=== PATIENT | female | born 1990 | race Caucasian/White ===

== ENCOUNTER → 2019-12-06 09:17 | Outpatient (BNVA) | payer MEDICAID, SELFPAY | PROVIDERS: PCP Internal Medicine; Referring Provider Internal Medicine; Visit Provider Dietitian, Registered | DX: Z76.89 Persons encountering health services in other specified circumstances (principal) ==

== ENCOUNTER → 2020-05-03 16:01 | Outpatient (BNVA) | payer MEDICAID, SELFPAY | PROVIDERS: PCP Internal Medicine; Visit Provider Surgery | DX: E66.3 Overweight (principal); Z68.26 Body mass index [BMI] 26.0-26.9, adult | CPT/HCPCS: 99212 ==

== ENCOUNTER 2020-10-11 11:03 | Emergency (ER) | payer MEDICAID, SELFPAY ==
--- NOTE | ~2020-10-11 | XR_ITS ---
EXAMINATION: XR CHEST CLINICAL INFORMATION: Cough with chest congestion COMPARISON: February 16, 2019 TECHNIQUE: 2 views of the chest were obtained. FINDINGS: No significant abnormality is noted involving the heart, lungs, mediastinum, bony thorax or soft tissues. XR/XR chest 2V IMPRESSION: No acute disease.
[2020-10-11 11:21] VITALS: BP 122/58; PULSE 92; RESP 18; TEMP 37.4; O2SAT 99; BMI 24.0
--- NOTE | 2020-10-11 11:32 | ED_ITS ---
HPI - URI/Sore Throat General Chief Complaint: Upper Respiratory Symptoms Stated Complaint: flu like Time Seen by Provider: 10/11/20 11:31 Source: patient Mode of arrival: ambulatory Limitations: no limitations History of Present Illness HPI Narrative: 30 y/o healthy female presenting with cough, chest congestion, body aches and nausea for the last 7-8 days. She reports getting a cold from her mom and had these symptoms which improved after 3-4 days, however they started to come back worse yesterday. 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 She has not gotten her COVID vaccine yet. She reports decreased PO intake due to nausea, bodyaches and overall not feeling well. She is taking Mucinex and OTC cold medications. She denies SOB, RANGEL or chest pains. MD elicited complaint: cough and nasal congestion Onset (ago): week(s) (1) Consistency: constant Severity: moderate Description of mucous: clear Able to tolerate fluids by mouth: Yes Exacerbating factors: nothing Relieving factors: OTC cold medicine Context: sick contacts Associated symptoms: myalgias, headache, nasal congestion, cough and nausea Treatments prior to arrival: cold medicine Related Data Home Medications Medication Instructions Recorded Confirmed cholecalciferol (vitamin D3) 50 3,000 unit PO DAILY cap 05/03/20 05/03/20 mcg (2,000 unit) capsule multivitamin 1 tab PO DAILY 05/03/20 05/03/20 sertraline 25 mg tablet (Zoloft) 25 mg PO DAILY 05/03/20 05/03/20 Previous Rx's Medication Instructions Recorded ondansetron 4 mg disintegrating 4 mg PO Q8H PRN #7 tab 10/11/20 tablet Allergies Allergy/AdvReac Type Severity Reaction Status Date / Time No Known Allergies Allergy Verified 05/03/20 16:35 [No Known Allergies*] Review of Systems Review of Systems: Constitutional: No Fever, No Chills ENT/Mouth: No sore throat, No Rhinorrhea, No Swallowing Difficulty Cardiovascular: No Chest Pain, No SOB, No Orthopnea, No Edema Respiratory: + Cough, No Sputum, No Wheezing, No dyspnea Gastrointestinal: No Nausea, No Vomiting, No Diarrhea, No abdominal Pain Musculoskeletal: No joint pain, + Myalgias Skin: No Skin Lesions, No rash Neuro: No Weakness, No Numbness, No Dizziness, + Headache Psych: + Anxiety/Panic Heme/Lymph: No Bruising, No Lymphadenopathy COUNT INCLUDES THE [facility] Past Medical History Medical History (Updated 10/11/20 @ 13:19 by ANETTE Webb) Anxiety Asthma Surgical History H/O ovarian cystectomy History of laparoscopic appendectomy History of repair of hiatal hernia History of sleeve gastrectomy S/P lumpectomy, right breast Family History Family History (Updated 05/03/20 @ 15:52 by Chantel Lobo MD) Father No problems noted. Mother HTN (hypertension) Brother No problems noted. Brother No problems noted. Sister No problems noted. Daughter No problems noted. Social History Social History (Updated 05/03/20 @ 15:52 by Chantel Lobo MD) Alcohol intake: never Advance Directives: No Advance Directives Information Provided: No Patient : No Physical Exam Vital Signs: Vital Signs: Last Vital Signs Temp 99.4 F 10/11/20 11:21 Pulse 92 10/11/20 11:21 Resp 18 10/11/20 11:21 BP 122/58 L 10/11/20 11:21 Pulse Ox 99 10/11/20 11:21 Body Mass Index 24.0 Appearance: Alert. Oriented X3. No acute distress. Eyes: Pupils equal, round and reactive to light. ENT: Pharynx normal. Moderate nasal congestion, clear discharge. no sinus tenderness Neck: Normal inspection. Neck supple. CVS: Normal heart rate and rhythm. Pulses normal. Respiratory: No respiratory distress. Breath sounds normal. Abdomen: Soft and nontender. +BS x4 Skin: Skin warm and dry. Normal skin color. Normal skin turgor. No rashes. Extremities: No lower extremity edema. Neuro: Oriented X 3. No motor deficit. No sensory deficit. Course Course Course Narrative: 30 y/o healthy female presenting with COVID symptoms for last 1 week. 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 She is anxious about the possibility of COVID. She has normal VS and a benign physical exam. Will check CXR and COVID swab. Reevaluation(s) Reevaluation #1: CXR clear. COVID POSITIVE. Patient counseled on management and worrisome symptoms to prompt urgent re-evaluation. Work note provided. Stable for d/c home. MDM - URI/Sore Throat Lab Data Labs: Lab Results 10/11/20 Range/Units 11:30 Coronavirus (PCR) POSITIVE A (Negative) Influenza Type A (PCR) NEGATIVE (Negative) Influenza Type B (PCR) NEGATIVE (Negative) RSV RNA Qual (PCR) NEGATIVE (Negative) Discharge Plan Discharge Clinical Impression: COVID-19 Patient Disposition: Home, Self-Care Instructions: COVID-19 (Coronavirus Disease 2019) (ED) Additional Instructions: You were found to be COVID-19 POSITIVE today. Your chest x-ray and oxygen levels were normal. Rest. Drink plenty of fluids. Do not go out in public for the next 10 days. Take over the counter cold/flu medications as needed for your symptoms. Take Tylenol and/or Motrin as needed for fevers and body aches. Follow up with your doctor as needed. If you shortness of breath worsens, if you develop difficulty breathing or any other concerning symptom come back to the ER for further evaluation. Prescriptions: New ondansetron 4 mg tablet,disintegrating 4 mg PO Q8H PRN (Reason: nausea and vomiting) Qty: 7 RF: 0 No Action cholecalciferol (vitamin D3) 50 mcg (2,000 unit) capsule 3,000 unit PO DAILY RF: 0 multivitamin Tablet 1 tab PO DAILY RF: 0 sertraline [Zoloft] 25 mg tablet 25 mg PO DAILY RF: 0 Stand Alone Forms: Work/School Release
[2020-10-11 12:53] LABS: Influenza A PCR NEGATIVE (Negative); Influenza B PCR NEGATIVE (Negative); Resp Syncy Virus RNA Qual PCR NEGATIVE (Negative); SARS COV2 PCR INHOUSE POSITIVE (Negative)
== END 2020-10-11 13:41 | disposition home or self-care (01) ==
PROVIDERS: Emergency Provider Emergency Medicine; PCP Internal Medicine
DX: U07.1 COVID-19 (principal)
CPT/HCPCS: 0241U; 36415; 71046; 99283

== ENCOUNTER 2020-11-13 15:07 | Outpatient (RCR) | payer MEDICAID, SELFPAY | END 2021-07-03 09:40 | disposition home or self-care (01) | LOC: HO.PTCHIC 15:07 | PROVIDERS: PCP Internal Medicine; Visit Provider Internal Medicine | DX: M62.838 Other muscle spasm (principal); M54.6 Pain in thoracic spine | CPT/HCPCS: 97110; 97161 ==

== ENCOUNTER 2020-12-05 16:59 | Emergency (ER) | payer MEDICAID, SELFPAY | END 2020-12-05 18:30 | disposition left against medical advice (07) | PROVIDERS: Emergency Provider Emergency Medicine; PCP Internal Medicine | DX: R00.2 Palpitations (principal) ==

== ENCOUNTER 2023-01-16 09:01 | Outpatient (REF) | payer MEDICAID, SELFPAY ==
[2023-01-16 10:07] LABS: MANUAL DIFF FLAG NO
[2023-01-16 10:21] LABS: Basophils Absolute Auto 0.1 X10*3/uL (0.0-0.2); Basophils Percent Auto 1.1 % (0-2); Eosinophils Absolute Auto 0.4 X10*3/uL (0.0-0.4); Eosinophils Percent Auto 6.6 % (0-4); Hematocrit 39.1 % (37.0-47.0); Hemoglobin 13.1 g/dl (12.0-16.0); Imm Gran Abs Auto 0.02 X10*3/uL (0.00-0.03); Imm Gran Pct Auto 0.3 % (0.0-0.4); Lymphocytes Absolute Auto 2.4 X10*3/uL (1.2-4.9); Lymphocytes Percent Auto 37.3 % (20-40); Mean Corpuscular HGB Conc 33.5 g/dl (31.0-35.0); Mean Corpuscular Hemoglobin 29.7 pg (27.0-33.0); Mean Corpuscular Volume 88.7 fL (80.0-98.0); Mean Platelet Volume 10.9 fL (9.4-12.3); Monocytes Absolute Auto 0.5 X10*3/uL (0.1-1.2); Neutrophils Percent Auto 46.7 % (45-73); Platelet Count 269 X10*3/uL (160-400); Red Blood Count 4.41 X10*6/uL (4.20-5.50); Red Cell Distribution Width 13.4 % (11.0-16.0); White Blood Count 6.5 X10*3/uL (4.8-10.8)
[2023-01-16 10:38] LABS: Estimated Average Glucose 97 mg/dL
[2023-01-16 11:01] LABS: Anion Gap 11 (12-20); Blood Urea Nitrogen 9 mg/dL (9-16); C Reactive Protein 0.14 mg/dL (< or = 0.50); Calcium 8.8 mg/dL (8.4-10.2); Carbon Dioxide 24 mmol/L (22-29); Chloride 112 mmol/L (96-108); Cholesterol 138 mg/dL (<200); Estimated Glomerular Filt Rate > 60; Glucose Random 82 mg/dL (60-115); HDL Cholesterol 45 mg/dL (>40); Iron 50 mcg/dL (30-160); LDL Cholesterol Calculated 83 mg/dL (<100); Percent Iron Saturation 15 % (15-50); Potassium 3.7 mmol/L (3.3-5.1); Sodium 143 mmol/L (135-145); Total Iron Binding Capacity 325 mcg/dL (228-428); Triglycerides 52 mg/dL (<150); Unsaturated Iron Binding 275 ug/dL
[2023-01-16 11:31] LABS: TSH reflex Free T4 1.14 uIU/mL (0.32-4.0); Vitamin D 25-OH Total 30.4 ng/mL (>30)
[2023-01-16 11:36] LABS: Folate 12.9 ng/mL (> or = 4.0); Vitamin B12 464 pg/mL (200-900)
[2023-01-16 12:09] LABS: Ferritin 21 ng/mL (10-122)
[2023-01-16 12:58] LABS: Insulin 4 uU/mL (2-29)
[2023-01-19 11:53] LABS: Calcium (PTHI) 8.9 mg/dL (8.6-10.2); PTHI 32 pg/mL (16-77)
[2023-01-20 01:59] LABS: Zinc 66 mcg/dL (60-130)
[2023-01-20 16:03] LABS: Vitamin B1 13 nmol/L (8-30)
[2023-01-21 03:58] LABS: Vitamin A 51 mcg/dL (38-98)
== END 2023-01-16 09:02 | disposition home or self-care (01) ==
LOC: HO.LAB 09:01
PROVIDERS: PCP Internal Medicine; Visit Provider Physician Assistant Surgical
DX: K91.2 Postsurgical malabsorption, not elsewhere classified (principal); E66.9 Obesity, unspecified; Z90.3 Acquired absence of stomach [part of]
CPT/HCPCS: 36415; 80048; 80061; 82306; 82607; 82728; 82746; 83036; 83525; 83540; 83970; 84425; 84443; 84590; 84630; 85025; 86140; 99212

== ENCOUNTER 2023-01-16 09:01 | Outpatient (AMB) | payer MEDICAID, SELFPAY ==
--- NOTE | 2023-01-16 09:02 | A.OFFVIS_ITS ---
Intake VS Expanded 01/16/23 09:13 BP 118/74 Blood Pressure Location Rt brachial Blood Pressure Position Sitting Pulse 62 Pulse Source Pulse Oximeter Temp 96.4 F L Temperature Source Temporal Artery Scan Pulse Oximetry 100 Oxygen Delivery Method Room Air Height 5 ft 3 in Weight 189 lb 3.2 oz BMI 33.5 Body Fat % 42.3 Body Fat Mass 80.0 Fat Free Mass 109.2 Visceral Fat Rating 8.0 Body Water % 41.4 Body Water Mass 78.2 Muscle Mass/Score 103.6 Intake Visit Reasons: (OV) PO LSG 05/04/19 Allergies No Known Allergies [No Known Allergies*] Allergy (Verified 01/16/23 09:09) HPI HPI Comments History of Present Illness Details 32-year-old female returns to the office today for a 3 year 8 month follow-up visit. She underwent a laparoscopic sleeve gastrectomy with hiatal he rnia repair on 05/04/[address] Pryor. She was last seen in the office on a 05/05/2020. Weight today is 189.2 lb with a BMI of 33.5. Weight at her last visit was 151 lb with a BMI of 26.7. She states that she was away from the office for the last 2 and half years. She did very well postoperatively and eventually met her now . She recently had a baby, approximately 2 months ago. She wishes to return to the program to lose weight again and feel much healthier. Wakes 730 am, bed 11 pm, dinner 6 pm Meal plan: None, has food stamps and request premier protein powder. Exercise plan: Treadmill at home, 30-45 min, speed changes but need to manually change incline, gym membership at [employer]. [facility] Medical History (Updated 01/16/23 @ 09:38 by ANETTE Obrien) Anxiety Asthma Surgical History History of repair of hiatal hernia History of sleeve gastrectomy H/O ovarian cystectomy S/P lumpectomy, right breast History of laparoscopic appendectomy Family History Father No problems noted. Mother HTN (hypertension) Brother No problems noted. Brother No problems noted. Sister No problems noted. Daughter No problems noted. Social History (Updated 01/16/23 @ 09:11 by Kinjal Phan CMA) Alcohol intake: never Patient Tobacco Use Status: Never used Tobacco Physical Exam Vital Signs: Last Vital Signs Temp 96.4 F L 01/16/23 09:13 Pulse 62 01/16/23 09:13 BP 118/74 01/16/23 09:13 Pulse Ox 100 01/16/23 09:13 Oxygen Delivery Method Room Air 01/16/23 09:13 BMI result Body Mass Index 33.5 Assessment & Plan Assessment & Plan (1) Intestinal malabsorption following gastrectomy: Code(s): K91.2 - Postsurgical malabsorption, not elsewhere classified; Z90.3 - Acquired absence of stomach [part of] (2) Obesity (BMI 30-39.9): Code(s): E66.9 - Obesity, unspecified Plan: This is a?32 yo female who has return to the program after being lost to follow-up over the last 2 and half years. She states her goal is to return to 145 lb. She states that she is willing and able to work very hard to achieve this and wants to try to achieve it within the next 3 months. ? Adequate sleep of 7-8 hours is very important, awakening at 730 am, going to bed around 11 pm and having dinner around 6 pm ? Purchase body composition analyzer scale ([employer] recommended) and check weight weekly. The best time to do this is first thing in the morning after going to the bathroom. 1. Nutritional counseling: Be sure to careful read the number of scoops per shake Start with 3 shakes (Premier Protein Powder), First shake (1 scoop in 10 oz unsweetened almond milk) at 830am-1030am, Second shake, (1 scoop in 10 oz unsweetened almond milk) at 1130am-130pm 1 protein bar (Zone Perfect) at 230pm-430pm. Dinner at 6pm (7 forks of protein and 7 forks of salad/vegetables). Meal to include lean meat (beef, fish, pork, turkey, chicken), cooked vegetables or a salad with olive oil and/or fruits (berries, pears, apples, kiwi). Avoid salt, breads, potatoes, rice, pasta, desserts. Another shake with 1/2 scoop in 8 oz unsweetened almond milk at 8pm-10pm. Try to drink 64 oz of water daily and avoid soda and juices. May have 1/2 cup fresh berries (straw, blue, rasp, black) or an apple as a snack if needed ?2. Each shake would be drunk slowly, like coffee in a period of 2 hours. ?3. Cut each bar in 4 pieces and eat each piece in 30 min ?to make each bar last 2 hours. ?4. I emphasized the importance of measuring accurately the food portion and measure it carefully when serving the food on the plate ?5. The meal portions include 7 full-size forks of meat and 7 full-size forks of salad. You always eat the meat portion but you can replace up to half of the forks of salad/vegetables with rice, potatoes or pasta, or a fruit ?if you like. The less you do it the better weight loss will be. ?6. One full-size fork is what can be scooped on the fork without falling aside and not what can be bit with the fork. Use regular forks like those you find in a typical restaurant. ?7.? Please send me weight measurements as soon as possible and then once a week. Always include your diet and exercise plan. Alternatively come weekly at the office for weight checks and send me the measurements. ?8. Exercise counseling: Begin by watching a stretching for beginners video. Start slowly and begin to stretch your muscles. You should do this before and after each exercise session to prevent injury. [facility] your home. Ask the warehouse logistics manager or one of the trainers how to use the machines if you are unfamiliar with them. Start elliptical with a resistance of 2. Increase resistance by 1 every 3 min to your most comfortable resistance with a max resistance of 8. Reduce the resistance by 1 every 3 minutes back down to 2 and repeat cycles for 300 calories. Alternatively, start treadmill with a speed of 3.0 and incline of 0, increasing incline by 1 every 3 minutes to the highest comfortable level (max 6 for now) then decrease in the same fashion. Repeat process to a goal of 300 calories. Goal of 2000 calories burned or more weekly. You may also consider use of the stationary bike. The easiest would be to chose the fat-burn or interval training program on the machine and do this until you reach the 300 calorie goal. Alternatively, you can manually adjust the resistance in a similar fashion as mentioned above, (resistance of 2-8 with a goal speed of 12 mph). Tracking calories is essential. 9. Alternatively start walking outside daily, tracking calories with a goal of 300 calories per day, daily. You can download the jose e [employer] which can track your time, distance and calories while walking outside. You press start in the jose e when you start and then stop when you are finished. 10.? It is important to communicate weekly with your weight and if you are having any problems with the plans. 11. Please get labs within 1 week. 12. Please follow the diet plan exactly, without any change. If you do not like something about the plan or you feel hungry, you need to communicate with me so I can help you revise the plan. You should not change the plan yourself. Text me at [phone] 13. Goal is to lose at least 12 pounds in the first month Patient is morbidly obese and is not considered stable at this time.?I spent a total of 70 minutes reviewing/updating records, examining the patient and co unseling the patient on weight management as detailed above. Orders: Orders Lipid Panel Today E66.9 - Obesity, unspecified, K91.2 - Postsurgical malabsorption, not elsewhere classified, Z90.3 - Acquired absence of stomach [part of] IRON PROFILE Today E66.9 - Obesity, unspecified, K91.2 - Postsurgical malabsorption, not elsewhere classified, Z90.3 - Acquired absence of stomach [part of] Complete Blood Count Auto Diff Today E66.9 - Obesity, unspecified, K91.2 - Postsurgical malabsorption, not elsewhere classified, Z90.3 - Acquired absence of stomach [part of] Vitamin B12 and Folate Today E66.9 - Obesity, unspecified, K91.2 - Postsurgical malabsorption, not elsewhere classified, Z90.3 - Acquired absence of stomach [part of] Vitamin A Today E66.9 - Obesity, unspecified, K91.2 - Postsurgical malabsorption, not elsewhere classified, Z90.3 - Acquired absence of stomach [part of] Hemoglobin A1c Today E66.9 - Obesity, unspecified, K91.2 - Postsurgical malabsorption, not elsewhere classified, Z90.3 - Acquired absence of stomach [part of] Basic Metabolic Panel Today E66.9 - Obesity, unspecified, K91.2 - Postsurgical malabsorption, not elsewhere classified, Z90.3 - Acquired absence of stomach [part of] Insulin Today E66.9 - Obesity, unspecified, K91.2 - Postsurgical malabsorption, not elsewhere classified, Z90.3 - Acquired absence of stomach [part of] Zinc Today E66.9 - Obesity, unspecified, K91.2 - Postsurgical malabsorption, not elsewhere classified, Z90.3 - Acquired absence of stomach [part of] Vitamin B1 Today E66.9 - Obesity, unspecified, K91.2 - Postsurgical malabsorption, not elsewhere classified, Z90.3 - Acquired absence of stomach [part of] C Reactive Protein Today E66.9 - Obesity, unspecified, K91.2 - Postsurgical malabsorption, not elsewhere classified, Z90.3 - Acquired absence of stomach [ part of] Ferritin Today E66.9 - Obesity, unspecified, K91.2 - Postsurgical malabsorption, not elsewhere classified, Z90.3 - Acquired absence of stomach [part of] PTHI Today E66.9 - Obesity, unspecified, K91.2 - Postsurgical malabsorption, not elsewhere classified, Z90.3 - Acquired absence of stomach [part of] TSH reflex Free T4 Today E66.9 - Obesity, unspecified, K91.2 - Postsurgical malabsorption, not elsewhere classified, Z90.3 - Acquired absence of stomach [part of] Vitamin D 25-OH Total Today E66.9 - Obesity, unspecified, K91.2 - Postsurgical malabsorption, not elsewhere classified, Z90.3 - Acquired absence of stomach [part of] Coding Level of Care Code Est Pt Level 5 (18657) Diagnoses Intestinal malabsorption following gastrectomy K91.2; Z90.3 Obesity (BMI 30-39.9) E66.9 Time Spent (min) 70
[2023-01-16 09:13] VITALS: BP 118/74; PULSE 62; TEMP 35.8; O2SAT 100; BMI 33.5
== END 2023-01-16 10:05 | disposition home or self-care (01) ==
PROVIDERS: PCP Internal Medicine; Visit Provider Physician Assistant Surgical
DX: E66.9 Obesity, unspecified (principal); Z68.33 Body mass index [BMI] 33.0-33.9, adult; Z90.3 Acquired absence of stomach [part of]; Z98.84 Bariatric surgery status; K91.2 Postsurgical malabsorption, not elsewhere classified
CPT/HCPCS: 99215

== ENCOUNTER 2023-02-11 09:44 | Outpatient (AMB) | payer MEDICAID, SELFPAY ==
--- NOTE | 2023-02-11 08:40 | MHC.OFFVISWM ---
Intake VS Expanded 02/11/23 08:42 Height 5 ft 3 in Weight 176 lb 4 oz BMI 31.2 Intake Visit Reasons: (TV) PO LSG 05/04/19 Allergies No Known Allergies [No Known Allergies*] Allergy (Verified 01/16/23 09:09) HPI HPI Comments History of Present Illness Details 32-year-old female returns to the office today for a 3 year 9 month follow-up visit. She underwent a laparoscopic sleeve gastrectomy with hiatal hernia repair on 05/04/[address] Pryor. She was last seen in the office on a 01/16/23 after not beinng seen for a couple of years. Her weight was 189.2 lb with a BMI of 33.5 and she was restarted on a meal plan and exercise plan. Weight today is 176.4 lb with a BMI of 31.3. She states that she was away from the office for the last 2 and half years. She did very well postoperatively and eventually met her now . She recently had a baby, approximately 2 months ago. She has had done well after the first week of the meal plan and she is no longer tempted. Wakes 730 am, bed 11 pm, dinner 6 pm Meal plan: 3 shakes (Premier Protein Powder), First shake (1 scoop in 10 oz unsweetened almond milk) at 830am-1030am, Second shake, (1 scoop in 10 oz unsweetened almond milk) at 1130am-130pm 1 protein bar (Zone Perfect) at 230pm-430pm. Dinner at 6pm (7 forks of protein and 7 forks of salad/vegetables). Another shake with 1/2 scoop in 8 oz unsweetened almond milk at 8pm-10pm. Drinking 48-64 oz of water daily May have 1/2 cup fresh berries (straw, blue, rasp, black) or an apple as a snack if needed Exercise plan: Treadmill at home, 2 x per day 30 min each, pace changes but not incline 140 calories per session, [facility] Medical History (Updated 01/16/23 @ 09:38 by ANETTE Obrien) Anxiety Asthma Surgical History History of repair of hiatal hernia History of sleeve gastrectomy H/O ovarian cystectomy S/P lumpectomy, right breast History of laparoscopic appendectomy Family History Father No problems noted. Mother HTN (hypertension) Brother No problems noted. Brother No problems noted. Sister No problems noted. Daughter No problems noted. Social History (Updated 01/16/23 @ 09:11 by Kinjal Phan CMA) Alcohol intake: never Patient Tobacco Use Status: Never used Tobacco Assessment & Plan Assessment & Plan (1) Obesity (BMI 30-39.9): Code(s): E66.9 - Obesity, unspecified Plan: change meal plan slightly: 2 shakes (Premier Protein Powder), First shake (1 scoop in 10 oz unsweetened almond milk) at 830am-1030am, Second shake, (1 scoop in 10 oz unsweetened almond milk) at 1130am-130pm 1 protein bar (Zone Perfect) at 230pm-430pm. Dinner at 6pm (7 forks of protein and 7 forks of salad/vegetables). Drinking 48-64 oz of water daily May have 1/2 cup fresh berries (straw, blue, rasp, black) or an apple as a snack if needed Increase exercise to 300 calories daily 45-60 min daily Telehealth Telehealth Location of provider rendering services: practice address Location of patient: address on file Patient Identification confirmed using: Name, : Yes Telehealth method: voice only Patient verbally consented to treatment: Yes Patient verbally consented to billing insurance company: Yes Patient informed of any privacy concerns related to visit: Yes Minutes spent on Phone/Video with Pt.: 12 Coding Level of Care Code Tele Est Pt Level 3 (59324) Diagnoses Obesity (BMI 30-39.9) E66.9 Time Spent (min) 20
[2023-02-11 08:42] VITALS: BMI 31.2
== END 2023-02-11 09:56 | disposition home or self-care (01) ==
LOC: HO.HBS 09:44
PROVIDERS: PCP Internal Medicine; Visit Provider Physician Assistant Surgical
DX: E66.9 Obesity, unspecified (principal)
CPT/HCPCS: 99213

== ENCOUNTER → 2023-02-11 09:44 | Outpatient (BNVA) | payer MEDICAID, SELFPAY | PROVIDERS: PCP Internal Medicine; Visit Provider Physician Assistant Surgical | DX: E66.9 Obesity, unspecified (principal); K91.2 Postsurgical malabsorption, not elsewhere classified; Z90.3 Acquired absence of stomach [part of] ==

== ENCOUNTER 2023-03-25 08:59 | Outpatient (AMB) | payer MEDICAID, SELFPAY ==
--- NOTE | 2023-03-25 09:02 | A.OFFVIS_ITS ---
Intake VS Expanded 03/25/23 09:04 Height 5 ft 3 in Weight 165 lb 12.8 oz BMI 29.4 Intake Visit Reasons: (TV) PO LSG 05/04/19 Field Interviewer Required: No Allergies No Known Allergies [No Known Allergies*] Allergy (Verified 01/16/23 09:09) Medication List - Last Reconciled 03/25/23 by ANETTE Obrien No Known Home Meds HPI HPI Comments History of Present Illness Details 32-year-old female returns to the office today for a 3 year 10 month follow-up visit. She underwent a laparoscopic sleeve gastrectomy with hiatal hernia repair on 05/04/[address] Pryor. Weight today is 165.8 lb with a BMI of 29.4. She states that since last being seen in January. She started her period bleeding a lot and she sees accounting practice manager and was told that her menorrhagia may change w time. She feels bloated. She states that she does have a history of uterine fibroids that worsened during although has not had an ultrasound in approximately 4 years She starts work again on thursday at a [employer] for [employer]. Wakes 730 am, bed 11 pm, dinner 6 pm Meal plan: 2 shakes (Premier Protein Powder), First shake (1 scoop in 10 oz unsweetened almond milk) at 830am-1030am, Second shake, (1 scoop in 10 oz unsweetened almond milk) at 1130am-130pm 1 protein bar (Zone Perfect) at 230pm-43 0pm. Dinner at 6pm (7 forks of protein and 7 forks of salad/vegetables). Drinking 48-64 oz of water daily May have 1/2 cup fresh berries (straw, blue, rasp, black) or an apple as a snack if needed Exercise plan: Treadmill at home, 360 faina daily PFSH Medical History Anxiety Asthma Surgical History History of repair of hiatal hernia History of sleeve gastrectomy H/O ovarian cystectomy S/P lumpectomy, right breast History of laparoscopic appendectomy Family History Father No problems noted. Mother HTN (hypertension) Brother No problems noted. Brother No problems noted. Sister No problems noted. Daughter No problems noted. Social History Alcohol intake: never Patient Tobacco Use Status: Never used Tobacco Review of Systems Const All systems reviewed & are unremarkable except as noted in HPI and below Assessment & Plan Assessment & Plan (1) Obesity (BMI 30-39.9): Code(s): E66.9 - Obesity, unspecified Plan: Change meal plans slightly to account for her return to work. Encouraged to continue exercise. She will text me with any concerns or questions regarding the new meal plan. 1 shakes (Premier Protein Powder), First shake (1.5 scoop in 12 oz unsweetened almond milk) at 830am-1030am, 1 protein bar (Zone Perfect) at 1130am-130pm Dinner at 6pm (7 forks of protein and 7 forks of salad/vegetables). Return to clinic 4 weeks (2) Menorrhagia: Code(s): N92.0 - Excessive and frequent menstruation with regular cycle Qualifiers: Menorrhagia type: with onset of menstrual periods Qualified Code(s): N92.2 - Excessive menstruation at puberty Plan: Patient gives report of uterine fibroids. Will refer to [facility] for possible uterine fibroid ablation consult. Telehealth Telehealth Location of provider rendering services: practice address Location of patient: address on file Patient Identification confirmed using: Name, : Yes Telehealth method: voice only Patient verbally consented to treatment: Yes Patient verbally consented to billing insurance company: Yes Patient informed of any privacy concerns related to visit: Yes Minutes spent on Phone/Video with Pt.: 20 Coding Level of Care Code Tele Est Pt Level 3 (69295) Diagnoses Obesity (BMI 30-39.9) E66.9 Excessive menstruation at puberty N92.2 Menorrhagia type: with onset of menstrual periods Time Spent (min) 30
[2023-03-25 09:04] VITALS: BMI 29.4
== END 2023-03-25 09:32 | disposition home or self-care (01) ==
LOC: HO.HBS 09:00
PROVIDERS: PCP Internal Medicine; Visit Provider Physician Assistant Surgical
DX: E66.9 Obesity, unspecified (principal); N92.0 Excessive and frequent menstruation with regular cycle
CPT/HCPCS: 99213

== ENCOUNTER → 2023-03-25 08:59 | Outpatient (BNVA) | payer MEDICAID, SELFPAY | PROVIDERS: PCP Internal Medicine; Visit Provider Physician Assistant Surgical | DX: E66.9 Obesity, unspecified (principal); K91.2 Postsurgical malabsorption, not elsewhere classified; Z90.3 Acquired absence of stomach [part of] ==

== ENCOUNTER 2023-06-30 16:11 | Outpatient (AMB) | payer MEDICAID, SELFPAY ==
--- NOTE | 2023-06-30 09:12 | MHC.OFFVISWM ---
VS Expanded 06/30/23 09:13 Height 5 ft 3 in Weight 177 lb 9.6 oz BMI 31.5 Body Fat % 38.1 Body Fat Mass 67.6 Fat Free Mass 110 Visceral Fat Rating 14 Body Water % 42.5 Body Water Mass 75.4 Muscle Mass/Score 103.4 Basal Metabolic Rate/Score 1,442 Intake Visit Reasons: (TV) PO LSG 05/04/19 Metrology Engineer Required: No Allergies No Known Allergies [No Known Allergies*] Allergy (Verified 01/16/23 09:09) Medication List - Last Reconciled 06/30/23 by ANETTE Obrien sennosides (senna) 17.2 mg (2 x 8.6 mg) PO BEDTIME PRN 90 days HPI Comments Details: 32-year-old female returns to the office today for a 4 year 1 month follow-up visit. She underwent a laparoscopic sleeve gastrectomy with hiatal hernia repair on 05/04/[address] Pryor. Weight today is 177.6 lb with a BMI of 31.5. She states that since last being seen she had to have her IUD removed due to menorrhagia. now on oral contraceptive to regulate menstrual cycle. goal is 155 pounds by August 31. She was just dx w flu last weekend. She is not following the plan as listed below. She wasn't measuring her food and not exercising. Meal plan: 1 shakes (Pure Protein Powder), First shake (1 scoop in 12 oz unsweetened almond milk) at 830am-1030am, 1 protein bar (Zone Perfect) at 1130am-130pm Dinner at 6pm (7 forks of protein and 7 forks of salad/vegetables). Drinking 48-64 oz of water daily May have 1/2 cup fresh berries (straw, blue, rasp, black) or an apple as a snack if needed Exercise plan: none in the last month. Previously Treadmill at home, 360 faina daily [facility] Medical History Anxiety Asthma Surgical History History of repair of hiatal hernia History of sleeve gastrectomy H/O ovarian cystectomy S/P lumpectomy, right breast History of laparoscopic appendectomy Family History Father No problems noted. Mother HTN (hypertension) Brother No problems noted. Brother No problems noted. Sister No problems noted. Daughter No problems noted. Social History Alcohol intake: never Patient Tobacco Use Status: Never used Tobacco Assessment & Plan Assessment & Plan (1) Obesity (BMI 30-39.9): Code(s): E66.9 - Obesity, unspecified Category: Medical Plan: Patient has had a goal of 155 lb by her [birth year], [birth year]. She will follow the meal plan exactly, increase exercise to 6 days per week, 400 calories per session. She certainly may do 7 days if she wishes. She will text me weekly with her weight and with any questions or concerns. Return to the office 6 weeks.
[2023-06-30 09:13] VITALS: BMI 31.5
== END 2023-06-30 16:22 | disposition home or self-care (01) ==
LOC: HO.HBS 16:11
PROVIDERS: PCP Internal Medicine; Visit Provider Physician Assistant Surgical
DX: E66.9 Obesity, unspecified (principal)
CPT/HCPCS: 99213

== ENCOUNTER → 2023-06-30 16:11 | Outpatient (BNVA) | payer MEDICAID, SELFPAY | PROVIDERS: PCP Internal Medicine; Visit Provider Physician Assistant Surgical ==

== ENCOUNTER 2023-09-17 09:20 | Outpatient (AMB) | payer MEDICAID, SELFPAY ==
--- NOTE | 2023-09-17 08:41 | MHC.OFFVISWM ---
VS Expanded 09/17/23 08:42 Height 5 ft 3 in Weight 154 lb 4 oz BMI 27.3 Intake Visit Reasons: (TV) PO LSG 05/04/19 Allergies No Known Allergies [No Known Allergies*] Allergy (Verified 01/16/23 09:09) HPI Comments Details: 33-year-old female returns to the office today for a 4 year 4 month follow-up visit. She underwent a laparoscopic sleeve gastrectomy with hiatal hernia repair on 05/04/[address] Pryor. Weight today is 154.4 lb with a BMI of 27.3. She states that since last being seen she had to have her IUD removed due to menorrhagia. now on oral contraceptive to regulate menstrual cycle. goal is 155 pounds by August 31. She is doing very well overall. She is very satisfied with her weight loss. She would like to lose about another 6-8 lb. She is following the meal plan and exercise plan. Meal plan: 1 shakes (Pure Protein Powder), First shake (1 scoop in 12 oz unsweetened almond milk) at 830am-1030am, 1 protein bar (fit crunch) at 1130am-130pm Dinner at 6pm (7 forks of protein and 7 forks of salad/vegetables). Drinking 48-64 oz of water daily May have 1/2 cup fresh berries (straw, blue, rasp, black) or an apple as a snack if needed Exercise plan: Treadmill at home, 360 faina daily, 30-45 min weights videos [facility] Medical History Anxiety Asthma Surgical History History of repair of hiatal hernia History of sleeve gastrectomy H/O ovarian cystectomy S/P lumpectomy, right breast History of laparoscopic appendectomy Family History Father No problems noted. Mother HTN (hypertension) Brother No problems noted. Brother No problems noted. Sister No problems noted. Daughter No problems noted. Social History Alcohol intake: never Patient Tobacco Use Status: Never used Tobacco Telehealth Telehealth Telehealth Platform: Telephone Location of provider rendering services: practice address Location of patient: address on file Patient Identification confirmed using: Name, : Yes Telehealth method: voice only Patient verbally consented to treatment: Yes Patient verbally consented to billing insurance company: Yes Patient informed of any privacy concerns related to visit: Yes Minutes spent on Phone/Video with Pt.: 12 Assessment & Plan Assessment & Plan (1) Overweight: Code(s): E66.3 - Overweight Category: Medical Plan: She will continue her current meal plan and exercise plan. She will continue to send me her weight is weekly, text with any questions or concerns.
[2023-09-17 08:42] VITALS: BMI 27.3
== END 2023-09-17 09:21 | disposition home or self-care (01) ==
LOC: HO.HBS 09:20
PROVIDERS: PCP Internal Medicine; Visit Provider Physician Assistant Surgical
DX: E66.3 Overweight (principal)
CPT/HCPCS: 99213

== ENCOUNTER → 2023-09-17 09:20 | Outpatient (BNVA) | payer MEDICAID, SELFPAY | PROVIDERS: PCP Internal Medicine; Visit Provider Physician Assistant Surgical | DX: E66.3 Overweight (principal) ==

== ENCOUNTER 2024-01-14 15:00 | Outpatient (AMB) | payer MEDICAID, SELFPAY ==
[2024-01-14 09:36] VITALS: BMI 26.4
--- NOTE | 2024-01-14 09:36 | A.OFFVIS_ITS ---
VS Expanded 01/14/24 09:36 Height 5 ft 3 in Weight 149 lb 2 oz BMI 26.4 Body Fat % 30.4 Fat Free Mass 103.8 Visceral Fat Rating 9 Body Water % 47.8 Muscle Mass/Score 97.6 Basal Metabolic Rate/Score 1,392 Intake Visit Reasons: (TV) PO LSG 05/04/19 Allergies No Known Allergies [No Known Allergies*] Allergy (Verified 01/16/23 09:09) HPI Comments Details: 33-year-old female returns to the office today for a 4 year 8 month follow-up visit. She underwent a laparoscopic sleeve gastrectomy with hiatal hernia repair on 05/04/[address] Pryor. Weight today is 149.2 lb with a BMI of 26.4. She states that since last being seen she had to have her IUD removed due to menorrhagia. now on oral contraceptive to regulate menstrual cycle. mvi at night She is doing very well overall. She was lightheaded and tired last week but once she had her menstrual cycle she feels better, with the use of OCP. C/O fatigue intermittently. Meal plan: 1 shakes (Pure Protein Powder), First shake (1 scoop in 12 oz unsweetened almond milk) at 830am-1030am, 1 protein bar (fit crunch) at 1130am-130pm Dinner at 6pm (7 forks of protein and 7 forks of salad/vegetables). Drinking 48-64 oz of water daily May have 1/2 cup fresh berries (straw, blue, rasp, black) or an apple as a snack if needed Exercise plan: Treadmill at home, 360 faina daily, 30-45 min 200 on bike weights videos [facility] Medical History Anxiety Asthma Surgical History History of repair of hiatal hernia History of sleeve gastrectomy H/O ovarian cystectomy S/P lumpectomy, right breast History of laparoscopic appendectomy Family History Father No problems noted. Mother HTN (hypertension) Brother No problems noted. Brother No problems noted. Sister No problems noted. Daughter No problems noted. Social History Alcohol intake: never Patient Tobacco Use Status: Never used Tobacco Telehealth Telehealth Telehealth Platform: Telephone Location of provider rendering services: practice address Location of patient: address on file Patient Identification confirmed using: Name, : Yes Telehealth method: voice only Patient verbally consented to treatment: Yes Patient verbally consented to billing insurance company: Yes Patient informed of any privacy concerns related to visit: Yes Minutes spent on Phone/Video with Pt.: 15 Assessment & Plan Assessment & Plan (1) Intestinal malabsorption following gastrectomy: Code(s): K91.2 - Postsurgical malabsorption, not elsewhere classified; Z90.3 - Acquired absence of stomach [part of] Category: Medical Plan: Patient is doing well. She is very satisfied with her meal plan. She will increase her exercise by 1 day. She has maintained a healthy weight and healthy lifestyle. Given her complaint of fatigue, we will check yearly labs as they have not been done in over a year. Orders: Orders Insulin Today K91.2 - Postsurgical malabsorption, not elsewhere classified, R53.83 - Other fatigue, Z90.3 - Acquired absence of stomach [part of] Hemoglobin A1c Today K91.2 - Postsurgical malabsorption, not elsewhere classified, R53.83 - Other fatigue, Z90.3 - Acquired absence of stomach [part of] C Reactive Protein Today K91.2 - Postsurgical malabsorption, not elsewhere classified, R53.83 - Other fatigue, Z90.3 - Acquired absence of stomach [part of] TSH reflex Free T4 Today K91.2 - Postsurgical malabsorption, not elsewhere classified, R53.83 - Other fatigue, Z90.3 - Acquired absence of stomach [part of] Basic Metabolic Panel Today K91.2 - Postsurgical malabsorption, not elsewhere classified, R53.83 - Other fatigue, Z90.3 - Acquired absence of stomach [part of] Complete Blood Count Auto Diff Today K91.2 - Postsurgical malabsorption, not elsewhere classified, R53.83 - Other fatigue, Z90.3 - Acquired absence of stomach [part of] Lipid Panel Today K91.2 - Postsurgical malabsorption, not elsewhere classified, R53.83 - Other fatigue, Z90.3 - Acquired absence of stomach [part of] IRON PROFILE Today K91.2 - Postsurgical malabsorption, not elsewhere classified, R53.83 - Other fatigue, Z90.3 - Acquired absence of stomach [part of] Vitamin B12 and Folate Today K91.2 - Postsurgical malabsorption, not elsewhere classified, R53.83 - Other fatigue, Z90.3 - Acquired absence of stomach [part of] Zinc Today K91.2 - Postsurgical malabsorption, not elsewhere classified, R53.83 - Other fatigue, Z90.3 - Acquired absence of stomach [part of] Vitamin B1 Today K91.2 - Postsurgical malabsorption, not elsewhere classified, R53.83 - Other fatigue, Z90.3 - Acquired absence of stomach [part of] Vitamin A Today K91.2 - Postsurgical malabsorption, not elsewhere classified, R53.83 - Other fatigue, Z90.3 - Acquired absence of stomach [part of] Ferritin Today K91.2 - Postsurgical malabsorption, not elsewhere classified, R53.83 - Other fatigue, Z90.3 - Acquired absence of stomach [part of] Vitamin D 25-OH Total Today K91.2 - Postsurgical malabsorption, not elsewhere classified, R53.83 - Other fatigue, Z90.3 - Acquired absence of stomach [part of]
== END 2024-01-14 15:23 | disposition home or self-care (01) ==
LOC: HO.HBS 15:16
PROVIDERS: PCP Internal Medicine; Visit Provider Physician Assistant Surgical
DX: K91.2 Postsurgical malabsorption, not elsewhere classified (principal); Z90.3 Acquired absence of stomach [part of]
CPT/HCPCS: 99213

== ENCOUNTER → 2024-01-14 15:00 | Outpatient (BNVA) | payer MEDICAID, SELFPAY | PROVIDERS: PCP Internal Medicine; Visit Provider Physician Assistant Surgical | DX: K91.2 Postsurgical malabsorption, not elsewhere classified (principal); Z90.3 Acquired absence of stomach [part of]; R53.83 Other fatigue ==

== ENCOUNTER 2024-06-15 09:15 | Outpatient (AMB) | payer MEDICAID, SELFPAY ==
--- NOTE | 2024-06-15 09:10 | MHC.OFFVISWM ---
VS Expanded 06/15/24 09:15 Height 5 ft 3 in Weight 178 lb BMI 31.5 Intake Visit Reasons: TELEPHONE PO LSG 05/04/19 *SEE COMMENTS* Allergies No Known Allergies [No Known Allergies*] Allergy (Verified 01/16/23 09:09) Medication List - Last Reconciled 06/15/24 by ANETTE Delarosa sennosides (senna) 17.2 mg (2 x 8.6 mg) PO BEDTIME PRN 90 days HPI Comments Details: This?is a?33?yo female who is s/p LSG with hiatal hernia repair on?05/04/[address] Lobo. Presents for 5 year 1 month post op visit. Weight at last visit on 01/14/2024 was 149.2 pounds with a BMI of 26.4, weight today is 178 pounds, representing a 28.8 pound weight loss with a BMI today of 31.5.? No complaints of nausea, emesis, abdominal pain or reflux, or constipation. Pt reports that recently she returned to old habits . Was able to be set up with counseling through her PCP, has an appointment with a psychiatrist tmrw. Struggles with binge eating. She appreciated the accountability of weekly checkins in the past. Present meal plan includes: First shake (1 PP scoop in 12 oz unsweetened almond milk) at 830am-1030am 1 protein bar (fit crunch) at 1130am-130pm Dinner at 6pm (7 forks of protein and 7 forks of salad/vegetables) Drinking 48-64 oz of water daily May have 1/2 cup fresh berries (straw, blue, rasp, black) or an apple as a snack if needed Exercise plan: Treadmill at home, 360 faina daily, 30-45 min 200 on bike weights videos [facility] Medical History Anxiety Asthma Surgical History History of repair of hiatal hernia History of sleeve gastrectomy H/O ovarian cystectomy S/P lumpectomy, right breast History of laparoscopic appendectomy Family History Father No problems noted. Mother HTN (hypertension) Brother No problems noted. Brother No problems noted. Sister No problems noted. Daughter No problems noted. Social History Alcohol intake: never Patient Tobacco Use Status: Never used Tobacco Assessment & Plan Assessment & Plan (1) Obesity (BMI 30-39.9): Code(s): E66.9 - Obesity, unspecified Category: Medical (2) S/P laparoscopic sleeve gastrectomy: Code(s): Z98.84 - Bariatric surgery status Category: Medical Plan Pt will download [employer] jose e and set up a customized meal plan. She recognizes the need for accountability and will text me weekly with weight measurements. Reminded to have labs drawn. RTC 2 months for phone visit. Medications: Refilled sennosides (senna) 17.2 mg (2 x 8.6 mg) PO BEDTIME 90 days PRN 180 tabs 0RF constipation
[2024-06-15 09:15] VITALS: BMI 31.5
--- OUTSIDE RECORDS SUMMARY | 2024-06-15 10:05 | XMS_ITS | Encounter Summary ---
Author Organization [employer] Address [address] [place] [address] Care Team Providers Care Opera Singer Name Role Phone Norma Gutierrez MD Primary Care Provider [phone] Encounter Details Date Type Department Care Team ([facility] st Contact Info) Description 05/24/[address] [facility] [address] [place] [address] Provider, MD Moise Social History Tobacco Use Types Packs/Day Years Used Date Smoking Tobacco: Never Smokeless Tobacco: Never Alcohol Use Standard Drinks/Week Comments Never 0 (1 standard drink = 0.6 oz pur e alcohol) Housing Stability Answer Date Recorded What is your housing situation today? I have valentinaaleta vasques 01/05/[address] you li ve. Do you have problems with any of the following? None of the above 01/05/2023 Food Insecurity Answer Date Recorded Within the past 12 months, y ou worried that your food would run out before you got money to buy more: Never True 01/05/2023 Within the past 12 months,th e food you bought just didn't last and you didn't have enough money to get more: Never True 07/2022 Transportation Answer Date Recorded In the past 12 months, has l ack of transportation kept you from medical appts, meetings, work or from getting things needed for daily living? No 01/05/2023 Utilities Answer Date Recorded In the past 12 months, has t he electric, gas, oil or water company threatened to shut off services in your home? No 01/05/2023 Comments Unknown Sex and Gender Information Value Date Recorded Sex Assigned at Female 12/30/2021 10:18 AM EDT Legal Sex Female 10:18 AM EDT Gender Identity Female 12/30/2021 10:18 AM EDT Sexual Orientation Choose not to disclose 2021 10:18 AM EDT documented as of this encounter Plan of Treatment Upcoming Encounters Date Type Department Care Team ([facility] st Contact Info) Description 07/11/2024 9:00 AM EDT Office Visit [facility] [address] [place] [address] Norma Gutierrez MD [address] [place] [address] documented as of this encounter Procedures Procedure Name Priority Date/Time Associated Diagnosis Comments HM PAP/HPV Routine 04/30/2022 2:50 PM EST documented in this encounter Results * HM PAP/HPV (04/30/2022 2:50 PM EST) Historical Provider HEALTH MAINTENANCE Final Result documented in this encounter Visit Diagnoses Not on filedocumented in this encounter Care Teams Opera Singer Relationship Specialty Start Date End Date Norma Gutierrez MD [address] [place] [address] PCP - General Internal Medicine 02/29/16 documented as of this encounter
--- OUTSIDE RECORDS SUMMARY | 2024-06-15 10:05 | XMS_ITS | Clinical Summary ---
Author Organization [employer] Address [address] [facility] 7t [place] [address] Care Team Providers Care Rack Production Worker Name Role Phone Norma Gutierrez MD Primary Care Provider [phone] Allergies No known active allergies Medications * This document contains information received from the source organization and may not represent a complete record from that organization. thiamine (Vitamin B-1) 50 MG tablet Take 50 mg by mouth in the morning. 2 Active 27-1 MG tablet Take 1 tablet by mouth in the morning. 3 Active albuterol (2.5 MG/3ML) 0.083% nebulizer solutionIndicati ons:Cough, unspecified type Take 3 mL (2.5 mg) by nebulization every 4 (four) hours if needed for wheezing. 75 mL 11 3 Active diphenhydrAMINE (BENADryl) 25 MG tabletIndication s:Acute exacerbation of asthma with allergic rhinitis Take 1 tablet (25 mg) by mouth if needed at bedtime (wheezing). 30 tablet 3 Active Ventolin HFA 108 (90 Base) MCG/ACT inhaler INHALE 2 PUFF DIRECTED FOUR TIMES A DAY NEEDED 18 g 5 3 Active norethindrone (Micronor) 0.35 MG tablet Take 1 tablet by mouth Once per day. 4 Active budesonide-formo terol (Symbicort) 80-4.5 MCG/ACT inhaler INHALE 2 PUFFS IN THE MORNING AND AT BEDTIME. RINSE MOUTH WITH WATER AFTER USE TO REDUCE AFTERTASTE AND INCIDENCE OF CANDIDIASIS. DO NOT SWALLOW. 30.6 each 11 4 Active Active Problems Problem Noted Date Diagnosed Date Tension headache 07/10/2023 Assessment & Plan (07/10/2023 10:56 PM EDT): The pt was informed that due to switching from an estrogen and progesterone control (implant) to a progesterone only control could be a potential factor for her headaches. -Pt was educated on potential adverse effects of her new medication. The pt was informed it may take >3 months or so in order for her body to adapt. -Pt was prescribed segkwnr-kmotrfpgtumlh-qhniziez (Excedrin Migraine) 250-250-65 MG tablet -Pt requested a doctors note for her Job. Cough 05/01/2022 Assessment & Plan (05/01/2022 7:20 PM EST): Could be secondary to asthma exacerbation, reports last time she was her asthma got uncontrolled. Discussed the need of controller meds if she is using her inhaler frequently. Given will need to monitor and consider alternative diagnosis to her cough/SOB, scheduled f/up PCP. Prednisone sent. Rapid testing negative, will send out PCR Candidal intertrigo 02/29/2016 Anxiety 03/16/2012 Assessment & Plan (05/20/2024 2:44 PM EDT): During IBH Consult Ircania presenting with excessive worry/anxiety, difficulty controlling worry, anxiety/worry associated to restlessness and/or feeling keyed-up/On edge , easily fatigued , difficulty concentrating and/or mind going blank , irritability, and muscle tension , and Fear and Maladaptive eating patterns, Intense focus on weight, and Other: eating amounts of food when not physically hungry, eating alone and hiding with embarrassment and guilty feelings, being anxious leading to snacking throughout the day therefore gaining excessive weight; for a period of 6-12 mo, for most or all symptoms in the context of stress, busy work schedule, and everyday worries. Pt reported her anxiety is getting worse and is associated with having an unhealthy relationship with food. Pt reported hx of eating disorders at a young age. Current presentation of sxs include eating more than needed and self-induced vomiting. She has positive support from her family and taoism community. Protective factors identified are her children and . Patient explored coping strategies to decrease urge of eating when not feeling hungry (ex: journaling, exercising, calling her best friend). Pt would like to re-start OP services and is also interested in trying medication management to decrease her anxiety. Discussed CBT as best approach for eating disorders. Gastritis 03/16/2012 Asthma 01/30/2012 Overweight 01/30/2012 Encounters * This document contains information received from the source organization and may not represent a complete record from that organization. Date Type Department Care Team Description 05/24/2024 Orders Only [facility]EDS [address] [place] [address] Provider, MD Moise 05/13/2024 Population Health Risk Score [facility] () Department [address] [id number] Provider, Population Health Generic from Last 3 Months Immunizations Name Administration Dates Next Due HPV, Quadrivalent 01/09/2011,09/06/2010,06/26/19 11 Influenza injectable quadriv alent IIV4 with preservative 01/03/2019,02/09/2015 Influenza injectable quadriv alent preservative free 12/11/2020 Influenza, IIV3, injectable 11/14/2013, 5 Influenza, Split (incl. sundeep fied surface antigen) 01/30/2012 Influenza, seasonal, injecta ble, preservative free 01/16/2024 MMR 01/03/2019,06/25/2010 Meningococcal MPSV4 12/19/2004 Td (adult), unspecified 06/15/2001 Tdap 09/03/2022,07/22/2017,06/25/2010 Varicella 04/08/2019,03/11/2019 Social History Tobacco Use Types Packs/Day Years Used Date Smoking Tobacco: Never Smokeless Tobacco: Never Tobacco Cessation:Counseling Given: Not Answered Alcohol Use Standard Drinks/Week Comments Never 0 (1 standard drink = 0.6 oz pur e alcohol) Housing Stability Answer Date Recorded What is your housing situation today? I have valentina vasques 01/05/[address] you [...] the past 12 months, has t he [employer], gas, oil or water [employer] threatened to shut off services in your home? No 01/05/2023 Comments Unknown Sex and Gender Information Value Date Recorded Sex Assigned at Female 12/30/2021 10:18 AM EDT Legal Sex Female 10:18 AM EDT Gender Identity Female 12/30/2021 10:18 AM EDT Sexual Orientation Choose not to disclose 2021 10:18 AM EDT Last Filed Vital Signs Vital Sign Reading Time Taken Comments Blood Pressure 126/89 07/10/2023 8:39 AM EDT Pulse 84 07/10/2023 8:39 AM EDT Temperature 36.4 ??C (97.6 ??F) 07/10/2023 8:39 AM ED T Respiratory Rate 20 07/10/2023 8:39 AM EDT Oxygen Saturation 98% 07/10/2023 8:39 AM EDT Inhaled Oxygen Concentration - - Weight 85.1 kg (187 lb 9.6 oz) 07/10/2023 8:39 A M EDT Height 161 cm (5' 3.39 ) 07/10/2023 8:39 AM EDT Body Mass Index 32.83 07/10/2023 8:39 AM EDT Plan of Treatment Upcoming Encounters Date Type Department Care Team (Late st Contact Info) Description 07/11/2024 9:00 AM EDT Office Visit [facility] [address] [place] [address] Norma Gutierrez MD [address] [place] [address] Health Maintenance Due Date Last Done Comments Depression Screening 1990 Alcohol/Substance Use Screening 2002 Family Planning (PISQ) 2005 Hepatitis C Screening 2008 Hepatitis B Vaccines (1 of 3 - 19+ 3-dose series) 2009 Pneumococcal Vaccine: Pediatrics (0 to 5 Years) and At-Risk Patients (6 to 49) Years) (1 of 2 - PCV) 2009 Tobacco Screening 06/06/2023 06/05/2022 COVID-19 Vaccine (4 - season) 2023 07/12/2021, 01/18/2021, 12/28/2020 SDOH Screening 11/14/2023 11/13/2022 Cervical Cancer Screening 05/01/2027 HPV/Cotest 05/01/2027 Pap Smear 05/01/2027 04/30/2022 DTaP/Tdap/Td Vaccines (5 - Td or Tdap) 09/03/2032 09/03/2022, 07/22/2017, 06/25/2010, Additional history exists Zoster Vaccines (1 of 2) 2040 RSV Patients and Patients Aged 60 years or older (1 - 1-dose 75+ series) 2065 Meningococcal Vaccine Aged Out 12/19/2004 No elsa yuval eligible based on patient's age to complete this topic HPV Vaccines Completed 01/09/2011, 09/2010, 06/25/2010 HIV Screening Completed 02/17/2019 Influenza Vaccine Completed 01/16/2024, , 01/03/2019, Additional history exists HIB Vaccines Aged Out No longer eligi ble based on patient's age to complete this topic Hepatitis A Vaccines Aged Out No long er eligible based on patient's age to complete this topic IPV Vaccines Aged Out No longer eligi ble based on patient's age to complete this topic RSV under 20 months Aged Out No longe r eligible based on patient's age to complete this topic Rotavirus Vaccines Aged Out No longer eligible based on patient's age to complete this topic Procedures Procedure Name Priority Date/Time Associated Diagnosis Comments HM PAP/HPV Routine 04/30/2022 2:50 PM EST ZZZ HISTORICAL HIV AB/AG Routine 02/17/2019 10:08 AM EST from Last 3 Months or Most Recently Relevant to Health Maintenance Results * HM PAP/HPV (04/30/2022 2:50 PM EST) Historical Provider MD HEALTH MAINTENANCE Final Result * HIV AB/AG (02/17/2019 10:08 AM EST) HIV AG/AB NONREACTIVE [facility] Comment: HIV-1 p24 Ag and/or HIV-1/HIV-2 Ab not detected. ?? A test result that is nonreactive does not exclude the possibility of exposure to or infection with HIV-1 and/or HIV-2. Nonreactive results in this assay for individuals with prior exposure to HIV-1 and/or HIV-2 may be due to antigen and antibody levels that are below the limit of detection of this assay. ?? The [employer] Strategic Sourcing Consultant HIV Ag/Ab Combo assay result and supplemental assay results should be interpreted in conjunction with the patient's clinical presentation, history and other laboratory results. ??If the results are inconsistent with clinical evidence, additional testing is suggested to confirm the result. 02/17/2019 10:0 8 AM EST Norma Gutierrez MD HISTORICAL/NON ORDERABLE LA BS Final Result Performing Organization Address City/State/[facility] Co de Phone Number [facility] [address] from Last 3 Months or Most Recently Relevant to Health Maintenance Insurance [facility] C3 Care Teams Rack Production Worker Relationship Specialty Start Date End Date Norma Gutierrez MD [address] [place] [id number] PCP - General Internal Medicine 02/29/16
--- OUTSIDE RECORDS SUMMARY | 2024-06-15 10:05 | XMS_ITS | Clinical Summary ---
Author Organization [place] [address] Is[address] [facility] Building Address [address] [place] [address] Phone Care Team Providers Care Track Leader Name Role Phone Norma Gutierrez MD Primary Care Provider [phone] Allergies No known active allergies Medications albuterol HFA (ProAir HFA) 90 mcg/actuation inhaler Inhale 2 Puffs into the lungs every 6 hours as needed for Shortness of Breath. 8 Active norethindrone (LEWIS,SOLANGE,HEAT HER,MICRONOR) 0.35 mg tabletIndications: Encounter for surveillance of contraceptive pills TAKE 1 TABLET BY MOUTH 1 TIME EACH DAY. 28 tablet 12 5 Active Active Problems Problem Noted Date Diagnosed Date Vulvar irritation 06/12/2023 Overview (02/04/2024): Last Assessment & Plan: Likely contact. Continue Desitin and prn hydrocortisone until resolved. If not after 1 week, call in. Change condoms. Marijuana use disorder in remission 03/23/2017 Overview (02/04/2024): 04/30/2022 negative at IP Fibroids, subserous 02/26/2017 Overview (02/04/2024): 7.6 x 5.7 x 5.8 cm right sided pedunculated fibroid on dating scan 2022 - no mention of fibroids on OB US Last Assessment & Plan: No mention of fibroids on US this . Plan to repeat US to assess for presence/size of fibroid. Asthma 02/24/2017 Overview (02/04/2024): Last Assessment & Plan: Improved, no longer requiring frequent inhaler use. Encounters Date Type Department Care Team Description 04/22/2024 3:30 PM EST Office Visit [facility] [address] [place] [address] Candis Scott, CNM Encounter for annual routine gynecological examination (Primary Dx); Encounter for surveillance of contraceptive pills from Last 3 Months Immunizations Name Administration Dates Next Due Influenza trivalent, 0.5mL, preservative free (Fluarix; FluLaval; Fluzone) ages 6mo and older (Afluria) 3 years and older 12/19/2004 Meningococcal Polysaccharide 12/19/2004 Td Tetanus diptheria (Tdvax) 7yo and older 06/15 Tdap Tetanus diptheria acell ular pertussis (Boostrix; Adacel) 7yo and older 09/03/2022,07/22/2017 Surgical History Surgery Date Site/Laterality Comments APPENDECTOMY Right PROCEDURE: HISTORICAL APPENDECTOMY; COMMENT: at the same time of ovarian cyst removal OVARIAN CYST REMOVAL Right PROCEDURE: [place] OVARIAN CYSTECTOMY UNI/BI OTHER SURGICAL HISTORY 2019 PROCEDURE: HISTORY OTHER; COMMENT: Gastric sleeve BREAST LUMPECTOMY 2012 PROCEDURE: HISTORICAL BREAST LUMPECTOMY; COMMENT: right breast Medical History Medical History Date Comments Asthma 02/24/2017 DX:Asthma COVID-19 affecting in first trimester 03/01/2022 DX:COVID-19 affecting pregna ncy in first trimester. And 04/2024 Family History Medical History Relation Name Comments No Known Problems Brother full sibli ng No Known Problems Father states nev er met him Stomach cancer Maternal Grandfather Throat cancer Maternal Grandmother ?think s so Hypertension Mother Migraines Mother No Known Problems Paternal Grandfather no hx never met father or his parents No Known Problems Paternal Grandmother no hx never met father or his parents Breast cancer Neg Hx Colon cancer Neg Hx Ovarian cancer Neg Hx Relation Name Status Comments Brother Alive Father Alive Maternal Grandfather Maternal Grandmother Mother Alive Paternal Grandfather Other Paternal Grandmother Other Social History Tobacco Use Types Packs/Day Years Used Date Smoking Tobacco: Never Smokeless Tobacco: Never Tobacco Cessation:Counseling Given: Not Answered Alcohol Use Standard Drinks/Week Comments No 0 (1 standard drink = 0.6 oz pur e alcohol) Comments No Sex and Gender Information Value Date Recorded Sex Assigned at Not on file Legal Sex Female 4:53 AM EST Gender Identity Not on file Sexual Orientation Not on file Obstetrics History Para Term AB IAB SAB Ectopic Multiple Livin g Live Births 6 3 3 2 1 2 2 Date Outcome GA Total Labor Labor/2nd/3rd Weight Sex Type Anes PTL Taylor A1 A5 Name Clin AB Term 2016 SAB 2017 Term 40w 1d 3487 g (123 oz) F Vag-S pont Epidur al N Livin g 8 9 Cali pritchett, CNM 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 Delivery Location:[facility] 2022 Term 39w 5d 8h 50m 3175 g (112 oz) M Vag-S pont Epidur al N Livin g Xu Pugh MD Delivery Location:[facility] Last Filed Vital Signs Vital Sign Reading Time Taken Comments Blood Pressure 103/78 04/22/2024 3:39 PM EST Pulse 75 04/22/2024 3:39 PM EST Temperature - - Respiratory Rate 18 04/22/2024 3:39 PM EST Oxygen Saturation - - Inhaled Oxygen Concentration - - Weight 78.9 kg (174 lb) 04/22/2024 3:39 PM EST Height 160 cm (5' 3 ) 04/22/2024 3:39 PM EST Body Mass Index 30.82 04/22/2024 3:39 PM EST Plan of Treatment Health Maintenance Due Date Last Done Comments Hepatitis B Vaccines (1 of 3 - 19+ 3-dose series) 2009 Pneumococcal Vaccine: Pediatrics (0 to 5 Years) and At-Risk Patients (6 to 64 Years) (1 of 2 - PCV) 2009 Depression Screening 02/02/2022 Social Influencers of Health Screening 02/02/2022 COVID-19 Vaccine ( season) 2023 07/12/2021, 01/18/2021, 12/28/2020 Cervical Cancer Screening: HPV 05/01/2027 04/30/2022 DTaP,Tdap,and Td Vaccines (5 - Td or Tdap) 09/03/2032 09/03/2022, 07/22/2017, 06/25/2010, Additional history exists Meningococcal ACWY Vaccine Aged Out 12/19/2004 N o longer eligible based on patient's age to complete this topic HPV Vaccines Completed 01/09/2011, 09/2010, 06/25/2010 MMR Vaccines Aged Out 01/03/2019, 06/25/2010 No lo nger eligible based on patient's age to complete this topic Varicella Vaccines Aged Out 04/08/2019, 03/11/2019 No longer eligible based on patient's age to complete this topic HIV Screening Completed 04/15/2022 Hepatitis C Screening Completed 04/15/2022 Influenza Vaccine Completed 01/16/2024, , 01/03/2019, Additional history exists HIB Vaccines Aged Out No longer eligi ble based on patient's age to complete this topic Hepatitis A Vaccines Aged Out No long er eligible based on patient's age to complete this topic IPV Vaccines Aged Out No longer eligi ble based on patient's age to complete this topic Meningococcal B Vaccine Aged Out No l onger eligible based on patient's age to complete this topic RSV Immunization Patients Under 20 months Aged Out No longer eligible based on patient's age to complete this topic Procedures Procedure Name Priority Date/Time Associated Diagnosis Comments HPV Routine 04/30/2022 HEPATITIS C SCREENING Routine 04/15/2022 HIV SCREENING Routine 04/15/2022 from Last 3 Months or Most Recently Relevant to Health Maintenance Results * Cervical Cancer Screening: HPV (04/30/2022) [facility] Cervical Cancer Screening: HPV Negative, Abstracted Historical Provider HEALTH MAINTENANCE Final Result * HIV Screening (04/15/2022) [facility] HIV Screening Abstracted Historical Provider HEALTH MAINTENANCE Final Result * Hepatitis C Screening (04/15/2022) [facility] Hepatitis C Screening Abstracted Historical Provider HEALTH MAINTENANCE Final Result from Last 3 Months or Most Recently Relevant to Health Maintenance Insurance MEDICAID - [place] Care Teams Track Leader Relationship Specialty Start Date End Date Norma Gutierrez MD [address] [place] [address] PCP - General 10/07/22
--- OUTSIDE RECORDS SUMMARY | 2024-06-15 10:05 | XMS_ITS | Encounter Summary ---
Author Organization [employer] Address [address] [facility] 7[address] [place] [address] Care Team Providers Care Computer Training Specialist Name Role Phone Norma Gutierrez MD Primary Care Provider [phone] Reason for Visit * Reason Onset Date Comments Reschedule 08/21/2023 Encounter Details Date Type Department Care Team ([facility] st Contact Info) Description 08/21/2023 Telephone [facility] CH[facility] MED & PEDS [address] [place], [place] [id number] Norma Gutierrez MD [address] [place] [address] Reschedule Social History Tobacco Use Types Packs/Day Years [...] AM EDT documented as of this encounter Miscellaneous Notes * Telephone Encounter - Nelda Kidd - 08/21/2023 8:51 AM EDT Tc from pt requesting to reschedule 08/24 PAP appointment. Please contact pt at [phone] documented in this encounter Plan of Treatment Upcoming Encounters Date Type Department Care Team ([facility] st Contact Info) Description 07/11/2024 9:00 AM EDT Office Visit [facility] MED & PEDS [address] [place] [address] Norma Gutierrez MD [address] [place] [address] documented as of this encounter Visit Diagnoses Not on filedocumented in this encounter Care Teams Computer Training Specialist Relationship Specialty Start Date End Date Norma Gutierrez MD [address] [place] [address] PCP - General Internal Medicine 02/29/16 documented as of this encounter
== END 2024-06-15 09:25 | disposition home or self-care (01) ==
LOC: HO.HBS 09:15
PROVIDERS: PCP Internal Medicine; Visit Provider Physician Assistant Surgical
DX: E66.9 Obesity, unspecified (principal); Z98.84 Bariatric surgery status
CPT/HCPCS: 99214

== ENCOUNTER → 2024-06-15 09:15 | Outpatient (BNVA) | payer MEDICAID, SELFPAY | PROVIDERS: PCP Internal Medicine; Visit Provider Physician Assistant Surgical ==

== ENCOUNTER 2024-07-11 09:24 | Outpatient (REF) | payer MEDICAID, SELFPAY ==
--- OUTSIDE RECORDS SUMMARY | 2024-07-11 09:32 | XMS_ITS | Clinical Summary ---
Author Organization [place] [address] Is[facility] Building Address [address] [place] [address] Phone Care Team Providers Care Automatic Blocker Name Role Phone Norma Gutierrez MD Primary Care Provider [phone] Allergies No known active allergies Medications albuterol [...] [facility] [address] [place] [address] Candis Scott, CNM Encounter for annual routine [...] cyst removal OVARIAN CYST REMOVAL Right PROCEDURE: [place] OVARIAN CYSTECTOMY UNI/BI OTHER SURGICAL HISTORY 2019 [...] 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 Delivery Location:[facility] 2022 Term 39w 5d 8h 50m 3175 g (112 oz) M Vag-S pont Epidur al N Livin g Xu Pugh MD Delivery Location:[facility] Last Filed Vital Signs Vital Sign Reading [...] Results * Cervical Cancer Screening: HPV (04/30/2022) [facility] Cervical Cancer Screening: HPV Negative, Abstracted Historical Provider HEALTH MAINTENANCE Final Result * HIV Screening (04/15/2022) [facility] HIV Screening Abstracted Historical Provider HEALTH MAINTENANCE Final Result * Hepatitis C Screening (04/15/2022) [facility] Hepatitis C Screening Abstracted Historical Provider HEALTH MAINTENANCE Final Result from Last 3 Months or Most Recently Relevant to Health Maintenance Insurance MEDICA[place] - [place] Care Teams Automatic Blocker Relationship Specialty Start Date End Date Norma Gutierrez MD [address] [place] [address] PCP - General 10/07/22
--- OUTSIDE RECORDS SUMMARY | 2024-07-11 09:32 | XMS_ITS | Encounter Summary ---
Author Organization [employer] Address [address] [facility] [address] [place] [address] Care Team Providers Care Switchboard Clerk Name Role Phone Norma Gutierrez MD Primary Care Provider [phone] Reason for Visit * Reason Onset Date Comments Reschedule 08/21/2023 Encounter Details Date Type Department Care Team ([facility] Contact Info) Description 08/21/2023 Telephone [facility] CH[facility] MED & PEDS [address] [place] [address] Norma Gutierrez MD [address] [place] [address] Reschedule Social History Tobacco Use Types Packs/Day [...] 08/24 PAP appointment. Please contact pt at [phone] documented in this encounter Plan of Treatment Upcoming Encounters Date Type Department Care Team (Late st Contact Info) Description 10/11/2024 9:30 AM EDT Office Visit [facility] MED & PEDS [address] [place] [address] Norma Gutierrez MD [address] [place] [address] documented as of this encounter Visit Diagnoses Not on filedocumented in this encounter Care Teams Switchboard Clerk Relationship Specialty Start Date End Date Norma Gutierrez MD [address] [place] [address] PCP - General Internal Medicine 02/29/16 documented as of this encounter
--- OUTSIDE RECORDS SUMMARY | 2024-07-11 09:32 | XMS_ITS | Encounter Summary ---
Author Organization [employer] Address [address] [facility] 7t [place] [address] Care Team Providers Care Project Development Director Name Role Phone Norma Gutierrez MD Primary Care Provider [phone] Encounter Details Date Type Department Care Team ([facility] st Contact Info) Description 07/11/2024 9:00 AM EDT Office Visit [facility] MED & PEDS [address] [place], [place] [phone] Norma Gutierrez MD [address] [place] [address] Moderate persistent asthma with acute exacerbation (Primary Dx); Cough, unspecified type; Chronic bilateral low back pain without sciatica; Dietary counseling; Exercise counseling; Class 1 obesity due to excess calories with serious comorbidity and body mass index (BMI) of 30.0 to 30.9 in adult Social History Tobacco Use Types Packs/Day Years Used Date Smoking Tobacco: Never Smokeless Tobacco: Never Alcohol Use Standard Drinks/Week Comments Never 0 (1 standard drink = 0.6 oz pur e alcohol) Depression Answer Date Recorded Patient Health Questionnaire-9 Score 6 07/11/2024 Patient Health Questionnaire-9 Score 6 07/11/2024 Last PHQ-9: Questionnaire Data Not on file 0 07/11/2024 Housing Stability Answer Date Recorded What is [...] off services in your home? No 01/05/2023 Depression Answer Date Recorded Patient Health Questionnaire-2 Score 2 07/11/2024 Comments Unknown Sex and Gender Information Value Date Recorded Sex Assigned at Female 12/30/2021 10:18 AM EDT Legal Sex Female 10:18 AM EDT Gender Identity Female 12/30/2021 10:18 AM EDT Sexual Orientation Choose not to disclose 2021 10:18 AM EDT documented as of this encounter Last Filed Vital Signs Vital Sign Reading Time Taken Comments Blood Pressure 112/71 07/11/2024 8:58 AM EDT Pulse 88 07/11/2024 8:58 AM EDT Temperature 36.7 ??C (98 ??F) 07/11/2024 8:58 AM EDT Respiratory Rate 20 07/11/2024 8:58 AM EDT Oxygen Saturation 99% 07/11/2024 8:58 AM EDT Inhaled Oxygen Concentration - - Weight 78.9 kg (174 lb) 07/11/2024 8:58 AM EDT Height 161 cm (5' 3.39 ) 07/11/2024 8:58 AM EDT Body Mass Index 30.44 07/11/2024 8:58 AM EDT documented in this encounter Plan of Treatment Upcoming Encounters Date Type Department Care Team (Late st Contact Info) Description 10/11/2024 9:30 AM EDT Office Visit [facility] MED & PEDS [address] [place], [place] [id number] Norma Gutierrez MD [address] [place], [place] [phone] Scheduled Orders Name Type Priority Associated Diagnoses Orde r Schedule CBC auto differential Lab Routine Class 1 obesity due to excess calories with serious comorbidity and body mass index (BMI) of 30.0 to 30.9 in adult Expected: 07/11/2024 (Approximate), Expires: 07/11/2025 Comprehensive Metabolic Panel Lab Routine Class 1 obesity due to excess calories with serious comorbidity and body mass index (BMI) of 30.0 to 30.9 in adult Expected: 07/11/2024 (Approximate), Expires: 07/11/2025 Lipid Panel, Standard Lab Routine Class 1 obesity due to excess calories with serious comorbidity and body mass index (BMI) of 30.0 to 30.9 in adult Expected: 07/11/2024 (Approximate), Expires: 07/11/2025 TSH W/Reflex to FT4 Lab Routine Class 1 obesity due to excess calories with serious comorbidity and body mass index (BMI) of 30.0 to 30.9 in adult Expected: 07/11/2024 (Approximate), Expires: 07/11/2025 Hepatitis C Viral RNA, Quantitative, Real-Time PCR Lab Routine Class 1 obesity due to excess calories with serious comorbidity and body mass index (BMI) of 30.0 to 30.9 in adult Expected: 07/11/2024 (Approximate), Expires: 07/11/2025 documented as of this encounter Visit Diagnoses Diagnosis Moderate persistent asthma with acute exacerbation- Primary Cough, unspecified type Chronic bilateral low back pain without sciatica Dietary counseling Dietary surveillance and counseling Exercise counseling Class 1 obesity due to excess calories with serious comorbidity and body mass index (BMI) of 30.0 to 30.9 in adult documented in this encounter Additional Health Concerns Assessment Noted Time PHQ-9 Depression Total Score: 6 07/12/19 25 9:14 AM EDT documented as of this encounter Care Teams Project Development Director Relationship Specialty Start Date End Date Norma Gutierrez MD [address] [place] [id number] PCP - General Internal Medicine 02/29/16 documented as of this encounter
--- OUTSIDE RECORDS SUMMARY | 2024-07-11 09:32 | XMS_ITS | Encounter Summary ---
Author Organization [employer] Address [address] 7[address] [place] [address] Care Team Providers Care Electrical Engineering Intern Name Role Phone Norma Gutierrez MD Primary Care Provider [phone] Encounter Details Date Type Department Care Team (Latest Contact Info) Description 07/11/2024 Travel Social History Tobacco Use Types Packs/Day Years [...] Description 10/11/2024 9:30 AM EDT Office Visit [facility] MED & PEDS [address] [place] [address] Norma Gutierrez MD [address] [place] [address] documented as of this encounter Visit Diagnoses Not on filedocumented in this encounter Additional Health Concerns Assessment Noted Time PHQ-9 Depression Total Score: 6 07/12/19 25 9:14 AM EDT documented as of this encounter Care Teams Electrical Engineering Intern Relationship Specialty Start Date End Date Norma Gutierrez MD [address] [place] [address] PCP - General Internal Medicine 02/29/16 documented as of this encounter
--- OUTSIDE RECORDS SUMMARY | 2024-07-11 09:32 | XMS_ITS | Encounter Summary ---
Author Organization [employer] Address [address] [facility] 7[address] [place] [address] Care Team Providers Care Day Habilitation Supervisor Name Role Phone Norma Gutierrez MD Primary Care Provider [phone] Encounter Details Date Type Department Care Team ([facility] st Contact Info) Description 05/24/2024 Orders Only [facility] CH[facility] MED & PEDS [address] [place] [address] Provider, MD Moise Social History Tobacco Use [...] Description 10/11/2024 9:30 AM EDT Office Visit [facility] MED [facility] PEDS [address] [place] [address] Norma Gutierrez MD [address] [place] [address] documented as of this encounter Procedures Procedure Name Priority Date/Time Associated Diagnosis Comments HM PAP/HPV Routine 04/30/2022 2:50 PM EST documented in this encounter Results * HM PAP/HPV (04/30/2022 2:50 PM EST) Historical Provider HEALTH MAINTENANCE Final Result documented in this encounter Visit Diagnoses Not on filedocumented in this encounter Care Teams Day Habilitation Supervisor Relationship Specialty Start Date End Date Norma Gutierrez MD [address] [place] [address] PCP - General Internal Medicine 02/29/16 documented as of this encounter
--- OUTSIDE RECORDS SUMMARY | 2024-07-11 09:32 | XMS_ITS | Clinical Summary ---
Author Organization [employer] Address [address] [facility] [address] 7[address] [place] [address] Care Team Providers Care Organizational Development Director Name Role Phone Norma Gutierrez MD Primary Care Provider [phone] Allergies No known active allergies Medications * This document contains information received from the source organization and may not represent a complete record from that organization. thiamine (Vitamin B-1) 50 MG tablet Take 50 mg by mouth in the morning. 022 Active 27-1 MG tablet Take 1 tablet by mouth in the morning. 023 Active diphenhydrAMINE (BENADryl) 25 MG tabletIndicatio ns:Acute exacerbation of asthma with allergic rhinitis Take 1 tablet (25 mg) by mouth if needed at bedtime (wheezing). 30 tablet 023 Active Ventolin HFA 108 (90 Base) MCG/ACT inhaler INHALE 2 PUFF DIRECTED FOUR TIMES A DAY NEEDED 18 g 5 023 Active norethindrone (Micronor) 0.35 MG tablet Take 1 tablet by mouth Once per day. 024 Active albuterol (2.5 MG/3ML) 0.083% nebulizer solutionIndicat ions:Cough, unspecified type,Moderate persistent asthma with acute exacerbation Take 3 mL (2.5 mg) by nebulization every 4 (four) hours if needed for wheezing. 75 mL 11 025 2025 Active budesonide-form oterol (Symbicort) 80-4.5 MCG/ACT inhalerIndicati ons:Moderate persistent asthma with acute exacerbation Inhale 2 puffs in the morning and at bedtime. Rinse mouth with water after use to reduce aftertaste and incidence of candidiasis. Do not swallow. 30.6 each 025 Active methocarbamol (Robaxin) 750 MG tabletIndicatio ns:Chronic bilateral low back pain without sciatica Take 1 tablet (750 mg) by mouth 4 times daily for 10 days. 40 tablet 025 2024 Active albuterol (2.5 MG/3ML) 0.083% nebulizer solutionIndicat ions:Cough, unspecified type Take 3 mL (2.5 mg) by nebulization every 4 (four) hours if needed for wheezing. 75 mL 11 023 2024 Discontinued(R eorder (will not trigger notification to Pharmacy)) budesonide-form oterol (Symbicort) 80-4.5 MCG/ACT inhaler INHALE 2 PUFFS IN THE MORNING AND AT BEDTIME. RINSE MOUTH WITH WATER AFTER USE TO REDUCE AFTERTASTE AND INCIDENCE OF CANDIDIASIS. DO NOT SWALLOW. 30.6 each 024 2024 Discontinued(R eorder (will not trigger notification to Pharmacy)) Active Problems Problem Noted Date Diagnosed Date [...] her body to adapt. -Pt was prescribed vjitehg-bunalkadgfxtb-xkgrxwka (Excedrin Migraine) 250-250-65 MG tablet -Pt requested [...] has positive support from her family and islam community. Protective factors identified are her children [...] organization. Date Type Department Care Team Description 07/11/2024 9:00 AM EDT Office Visit [facility] CHC MED & PEDS [address] [place] [address] Norma Gutierrez MD Moderate persistent asthma with acute exacerbation (Primary Dx); Cough, unspecified type; Chronic bilateral low back pain without sciatica; Dietary counseling; Exercise counseling; Class 1 obesity due to excess calories with serious comorbidity and body mass index (BMI) of 30.0 to 30.9 in adult 07/11/2024 Travel 05/24/2024 Orders Only [facility] MED & PEDS [address] [place] [address] Provider, MD Moise 05/13/2024 Population Health Risk Score [facility] () Department [address] [place] [id number] Provider, Population Health Generic from Last [...] Mass Index 30.44 07/11/2024 8:58 AM EDT Plan of Treatment Upcoming Encounters Date Type Department Care Team (Late st Contact Info) Description 10/11/2024 9:30 AM EDT Office Visit [facility] MED & PEDS [address] [place] [address] Norma Gutierrez MD [address] [place] [address] Health Maintenance Due Date Last Done Comments [...] * HM PAP/HPV (04/30/2022 2:50 PM EST) us Historical Provider HEALTH MAINTENANCE Final Result * HIV AB/AG [...] detection of this assay. ?? The [employer] In[employer] Rounder HIV Ag/Ab Combo assay result and supplemental assay results should be interpreted in conjunction with the patient's clinical presentation, history and other laboratory results. ??If the results are inconsistent with clinical evidence, additional testing is suggested to confirm the result. 02/17/2019 10:0 8 AM EST us Norma Gutierrez MD HISTORICAL/NON ORDERABLE VERONICA OBRIEN Final Result [facility] [address] from Last 3 Months or Most Recently Relevant to Health Maintenance Insurance [facility] Care Teams Organizational Development Director Relationship Specialty Start Date End Date Norma Gutierrez MD [address] [place] [id number] PCP - General Internal Medicine 02/29/16
[2024-07-11 14:18] LABS: MANUAL DIFF FLAG NO
[2024-07-11 14:28] LABS: Basophils Absolute Auto 0.1 X10*3/uL (0.0-0.2); Basophils Percent Auto 0.7 % (0-2); Eosinophils Absolute Auto 0.9 X10*3/uL (0.0-0.4); Eosinophils Percent Auto 11.9 % (0-4); Hematocrit 35.2 % (37.0-47.0); Hemoglobin 11.1 g/dl (12.0-16.0); Imm Gran Abs Auto 0.01 X10*3/uL (0.00-0.03); Imm Gran Pct Auto 0.1 % (0.0-0.4); Lymphocytes Absolute Auto 1.9 X10*3/uL (1.2-4.9); Lymphocytes Percent Auto 26.1 % (20-40); Mean Corpuscular HGB Conc 31.5 g/dl (31.0-35.0); Mean Corpuscular Hemoglobin 26.9 pg (27.0-33.0); Mean Corpuscular Volume 85.2 fL (80.0-98.0); Mean Platelet Volume 11.8 fL (9.4-12.3); Monocytes Absolute Auto 0.6 X10*3/uL (0.1-1.2); Monocytes Percent Auto 8.6 % (2-11); Neutrophils Absolute Auto 3.8 x10*3/uL (2.0-8.3); Neutrophils Percent Auto 52.6 % (45-73); Platelet Count 287 X10*3/uL (160-400); Red Blood Count 4.13 X10*6/uL (4.20-5.50); Red Cell Distribution Width 14.7 % (11.0-16.0); White Blood Count 7.3 X10*3/uL (4.8-10.8)
[2024-07-11 16:22] LABS: Alanine Aminotransferase 9 U/L (0-31); Albumin Level 4.1 g/dL (3.5-5.0); Anion Gap 11 (12-20); Aspartate Amino Transferase 26 U/L (5-31); Bilirubin Total 0.4 mg/dL (0.0-1.0); Blood Urea Nitrogen 9 mg/dL (9-16); Calcium 8.7 mg/dL (8.4-10.2); Carbon Dioxide 24 mmol/L (22-29); Chloride 108 mmol/L (96-108); Cholesterol 144 mg/dL (<200); Estimated Glomerular Filt Rate > 60; Glucose Random 68 mg/dL (60-115); HDL Cholesterol 47 mg/dL (>40); LDL Cholesterol Calculated 84 mg/dL (<100); Potassium 3.4 mmol/L (3.3-5.1); Sodium 140 mmol/L (135-145); Total Protein 6.6 g/dL (6.5-8.0); Triglycerides 66 mg/dL (<150)
[2024-07-11 16:48] LABS: Alkaline Phosphatase 53 U/L (39-117); TSH reflex Free T4 1.26 uIU/mL (0.32-4.0)
[2024-07-13 00:29] LABS: HCV Log PCR <1.18 NOT DETECTED Log IU/mL (NOT DETECTED); HepC Viral Load <15 NOT DETECTED IU/mL (NOT DETECTED)
== END 2024-07-11 09:25 | disposition home or self-care (01) ==
LOC: HO.CHCLDS 09:24
PROVIDERS: Visit Provider Internal Medicine
DX: E66.811 Obesity, class 1 (principal); E66.09 Other obesity due to excess calories; Z68.30 Body mass index [BMI] 30.0-30.9, adult
CPT/HCPCS: 36415; 80053; 80061; 84443; 85025; 87522

== ENCOUNTER 2024-09-06 09:24 | Outpatient (AMB) | payer MEDICAID, SELFPAY ==
--- NOTE | 2024-09-06 09:08 | MHC.OFFVISWM ---
VS Expanded 09/06/24 09:11 Height 5 ft 3 in Weight 165 lb 8 oz BMI 29.3 Intake Visit Reasons: TELEPHONE PO LSG 05/04/19 *SEE COMMENTS* Allergies No Known Allergies (No Known Allergies*) Allergy (Verified 01/16/23 09:09) Medication List - Last Reconciled 09/06/24 by ANETTE Delarosa sennosides (senna) 17.2 mg (2 x 8.6 mg) PO BEDTIME PRN 90 days HPI Comments Details: This?is a?34?yo F who is s/p LSG 05/04/2019. Weight at last visit on 06/15/2024 was 178 pounds with a BMI of 31.8. Last recorded weight from last week was 165.8lbs with BMI 29.3. No complaints of nausea, emesis, abdominal pain or reflux, or constipation. Was started on a med (wellbutrin) for binge eating by psychiatrist. Started at 100mg, increased to 150mg BID but stopped working. Planning to change to possibly Vyvanse. Present meal plan includes: did not end up using [employer] jose e- got a new phone using protein shakes sometimes- Beto (30g premade shake with 150cal) was mostly doing coffee in AM, then 2 small meals; the Wellbutrin was decreasing her hunger Exercise routine includes: was doing better at the gym a few weeks ago, less the past few weeks has a gym membership and treadmill at home Pt notes excess skin under her breasts- saggy and often results in a rash. The excess skin is heavy and bothers her back. Was referred to [facility] and waiting to hear back for appt. Pt has excess skin of the upper arms that is bothersome. It is very heavy which is uncomfortable. It is difficult to raise her arms above her head due to the weight of the excess skin. It is difficult to wear short sleeves due to skin rubbing against body; if she wears a sleeveless shirt this causes chafing against the torso. Gets a lot of sweating which can develop an unpleasant odor due to having to wear sleeves even in hot weather. This also irritates the skin. Insurance- [employer] from her job, [email or web address] as secondary. [facility] Medical History Anxiety Asthma Surgical History History of repair of hiatal hernia History of sleeve gastrectomy H/O ovarian cystectomy S/P lumpectomy, right breast History of laparoscopic appendectomy Family History Father No problems noted. Mother HTN (hypertension) Brother No problems noted. Brother No problems noted. Sister No problems noted. Daughter No problems noted. Social History Alcohol intake: never Patient Tobacco Use Status: Never used Tobacco Telehealth Telehealth Telehealth Platform: Telephone Location of provider rendering services: practice address Location of patient: address on file Patient Identification confirmed using: Name, : Yes Telehealth method: voice only Patient verbally consented to treatment: Yes Patient verbally consented to billing insurance company: Yes Patient informed of any privacy concerns related to visit: Yes Minutes spent on Phone/Video with Pt.: 20 Assessment & Plan Assessment & Plan (1) S/P laparoscopic sleeve gastrectomy: Code(s): Z98.84 - Bariatric surgery status Category: Surgical (2) Overweight: Code(s): E66.3 - Overweight Category: Medical Plan Clotrimazole ointment recommended for chafing of upper arm skin. She is interested in brachioplasty with us. Aware that target weight for BMI <27 is 152lbs. Resent [employer] jose e info for pt to download. Reminded to have labs drawn. RTC 2mo.
[2024-09-06 09:11] VITALS: BMI 29.3
--- OUTSIDE RECORDS SUMMARY | 2024-09-06 09:51 | XMS_ITS | Encounter Summary ---
Author Organization [employer] Address [address] [facility] [address] [place] [address] Care Team Providers Care Director Bioinformatics Name Role Phone Norma Gutierrez MD Primary Care Provider [phone] Encounter Details Date Type Department Care Team (Late st Contact Info) Description 07/12/2024 Orders Only [facility] CHC MED & PEDS [address] [place], [place] [phone] Norma Gutierrez MD [address] [place] [address] Normocytic anemia (Primary Dx) Social History Tobacco Use Types Packs/Day Years [...] housing situation today? I have valentina vasques 07/11/[address] you li ve. Do you have problems with any of the following? None of the above 07/11/2024 Food Insecurity Answer Date Recorded Within the past 12 months, y ou worried that your food would run out before you got money to buy more: Often true 2024 Within the past 12 months,th e food you bought just didn't last and you didn't have enough money to get more: Sometimes True 07/11/2024 Transportation Answer Date Recorded In the past 12 months, has l ack of transportation kept you from medical appts, meetings, work or from getting things needed for daily living? No 07/11/2024 Utilities Answer Date Recorded In the past 12 months, has t he electric, gas, oil or water company threatened to shut off services in your home? No 07/11/2024 Depression Answer Date Recorded Patient Health Questionnaire-2 Score 2 07/11/2024 Internet Access Answer Date Recorded Internet Access Q1 Yes 07/11/2024 Internet Access Q2 Not on file 07/11/2024 Comments Unknown Sex and Gender Information Value Date Recorded Sex Assigned at Female 12/30/2021 10:18 AM EDT Legal Sex Female 10:18 AM EDT Gender Identity Female 12/30/2021 10:18 AM EDT Sexual Orientation Choose not to disclose 2021 10:18 AM EDT documented as of this encounter Plan of Treatment Upcoming Encounters Date Type Department Care Team ([facility] st Contact Info) Description 10/11/2024 9:30 AM EDT Office Visit [facility] MED & PEDS [address] [place] [address] Norma Gutierrez MD [address] [place] [address] Scheduled Orders Name Type Priority Associated Diagnoses Orde r Schedule CBC auto differential Lab Routine Normocytic anemia Expected: 07/12/2024 (Approximate), Expires: 07/12/2025 documented as of this encounter Visit Diagnoses Diagnosis Normocytic anemia- Primary Unspecified anemia documented in this encounter Additional Health Concerns Assessment Noted Time PHQ-9 Depression Total Score: 6 07/12/19 25 9:14 AM EDT documented as of this encounter Care Teams Director Bioinformatics Relationship Specialty Start Date End Date Norma Gutierrez MD [address] [place] [address] PCP - General Internal Medicine 02/29/16 documented as of this encounter
--- OUTSIDE RECORDS SUMMARY | 2024-09-06 09:51 | XMS_ITS | Clinical Summary ---
Author Organization [place] [address] [facility] Building Address [address] [place] [address] Phone Care Team Providers Care Pattern Finisher Name Role Phone Norma Gutierrez MD Primary Care Provider [phone] Allergies No known active allergies Medications albuterol [...] Improved, no longer requiring frequent inhaler use. 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 2022 Term 39w 5d 8h 50m 3175 g (112 oz) M Vag-S pont Epidur al N Livin g Xu Pugh MD Delivery Location:[facility] Last Filed Vital Signs Vital Sign Reading [...] 5 Years) and At-Risk Patients (6 to 49 Years) (1 of 2 - PCV) 2009 Depression Screening 02/02/2022 Social Influencers of Health Screening 02/02/2022 COVID-19 Vaccine ( season) 2023 07/12/2021, 01/18/2021, 12/28/2020 Influenza Vaccine (#1) 2024 , 12/11/2020, 01/03/2019, Additional history exists Cervical Cancer Screening: HPV 05/01/2027 04/30/2022 DTaP,Tdap,and [...] Completed 04/15/2022 Hepatitis C Screening Completed 04/15/2022 HIB Vaccines Aged Out No longer eligi [...] Results * Cervical Cancer Screening: HPV (04/30/2022) Pathologist [facility] Cervical Cancer Screening: HPV Negative, Abstracted [facility] Provider HEALTH MAINTENANCE Final Result * HIV Screening (04/15/2022) Pathologist [facility] HIV Screening Abstracted [facility] Provider HEALTH MAINTENANCE Final Result * Hepatitis C Screening (04/15/2022) Pathologist [facility] Hepatitis C Screening Abstracted [facility] Provider HEALTH MAINTENANCE Final Result from Last 3 Months or Most Recently Relevant to Health Maintenance Insurance MEDICAID - [place] Care Teams Pattern Finisher Relationship Specialty Start Date End Date Norma Gutierrez MD [address] [place] [address] PCP - General 10/07/22
== END 2024-09-06 09:39 | disposition home or self-care (01) ==
LOC: HO.HBS 09:24
PROVIDERS: PCP Internal Medicine; Visit Provider Physician Assistant Surgical
DX: Z98.84 Bariatric surgery status (principal); E66.3 Overweight
CPT/HCPCS: 99214

== ENCOUNTER 2024-09-21 20:18 | Emergency (ER) | payer OTHER, MEDICAID, SELFPAY ==
--- NOTE | ~2024-09-21 | XR_ITS ---
CLINICAL HISTORY: pain around glenohumeral joint, decreased ROM 3 view right shoulder Comparison: None provided Findings: Bones intact. No dislocations. There is slight anterior inferior subluxation of the humeral head relative to the glenoid. No erosions. No radiopaque foreign body. Amorphous calcification adjacent to the greater tuberosity. IMPRESSION: 1. Calcific tendinitis of the rotator cuff. 2. Slight subluxation of the humeral head anteroinferior to the glenoid. Correlate with signs or symptoms of shoulder instability. This document has been electronically signed by: Angelic Pappas MD on 09/21/2024 21:37:50
[2024-09-21 20:54] VITALS: BP 118/77; PULSE 93; RESP 18; TEMP 36.9; O2SAT 100; BMI 30.1
--- NOTE | 2024-09-21 20:54 | ED.GENADULT ---
HPI - General Adult General Chief complaint: Extremity Injury, Upper Stated complaint: rt shoulder pain Time Seen by Provider: 09/21/24 23:47 Source: patient Mode of arrival: ambulatory Limitations: no limitations History of Present Illness ED Provider: HPI narrative: Patient with no prior history of shoulder problems noticed pain in the right shoulder for last 5 days atraumatic pain increases on abduction no other joint involvement Related Data Previous Rx's ?Medication ?Instructions ?Recorded sennosides 8.6 mg tablet (senna) 17.2 mg (2 x 8.6 mg) PO BEDTIME 06/15/24 PRN constipation 90 days #180 tabs clotrimazole 1 % topical cream 1 appl topical BID #45 grams 09/08/24 cyclobenzaprine 10 mg tablet 10 mg PO Q8H #20 tabs 09/22/24 oxycodone 5 mg tablet 5 mg PO Q6H PRN pain #20 tabs 09/22/24 Allergies Allergy/AdvReac Type Severity Reaction Status Date / Time No Known Allergies (No Known Allergy Verified 09/21/24 20:58 Allergies*) Review of Systems Review of Systems: Yes all other systems are reviewed and are negative PMF Past Medical History Medical History Anxiety Asthma Surgical History History of repair of hiatal hernia History of sleeve gastrectomy H/O ovarian cystectomy S/P lumpectomy, right breast History of laparoscopic appendectomy Family History Family History Father No problems noted. Mother HTN (hypertension) Brother No problems noted. Brother No problems noted. Sister No problems noted. Daughter No problems noted. Social History Social History Unable to assess alcohol history related to: Unknown Alcohol intake: never Patient Tobacco Use Status: Never used Tobacco Smoked in Last 30 Days: No Use of substances other than those prescribed or required for medical reasons: Unknown Advance Directives: No Advance Directives Information Provided: No Do you have a plan to hurt others: No Plan Physical Exam ED Vital Signs: Vital Signs - 24 hr 09/21/24 20:54 Temperature 98.5 F Pulse Rate 93 Respiratory Rate 18 Blood Pressure 118/77 Pulse Oximetry 100 Oxygen Delivery Method Room Air BMI result Body Mass Index 30.1 Appearance: Alert. Oriented X3. No acute distress. Eyes: no pallor or icterus ENT: Pharynx normal Oral Mucosa moist tympanic membrane intact no erythema, Neck: Normal inspection. Neck supple. CVS: Normal heart rate and rhythm. Pulses normal. Respiratory: No respiratory distress. Equal air entry bilateral, no wheezing/rales/rhonchi Abd: soft, not tender Skin: Skin warm and dry. Normal skin color. Normal skin turgor. Extremities: No lower extremity edema, no calf tenderness right shoulder tenderness in the subacromial area painful abduction neurovascular intact Neuro: Oriented X 3. Course Course Course Narrative: This is a rapid medical exam performed by Kimberly Borjas NP: Additional HPI, ROS, PE not included below will be deferred to primary provider. Patient is a 34-year-old right hand dominant female presenting to the ED with complaint of atraumatic right shoulder pain since Thursday night. Reports decreased ROM due to pain. Denies fall or other trauma. 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 Plan: xray Medications Administered Discontinued Medications Generic Name Dose Route Start Last Admin Trade Name Freq PRN Reason Stop Dose Admin Lidocaine HCl 5 ml 09/22/24 00:02 09/22/24 00:21 Lidocaine Hcl 2 % Mpf 5 Ml Vial INFILTRATI 09/22/24 00:03 5 ml ONCE ONE Administration Lidocaine HCl 5 ml 09/22/24 00:02 09/22/24 00:16 Lidocaine Hcl 1 % Mpf 5 Ml Vial INFILTRATI 09/22/24 00:03 Not Given ONCE ONE Procedures Joint Aspiration/Injection Joint Asp./Inject. 1: Time Out Performed: Yes Side of body: right Joint Aspirated: shoulder Ultrasound Guidance: No Skin Prep: Povidone-Iodine1% Local Anesthetic: lidocaine 2% Amount of anesthesia used (mL): 5 Needle Size Used: 20G Medication Injected, if any: Lidocaine Amount of medication injected (mL): 5 Patient Tolerated Procedure: well Complications: none Medical Decision Making Medical Decision Making MDM Narrative: Patient with subacromial tenderness with calcification of the tendon patient denied any previous pain or injury in the past will give subacromial injection of lidocaine to see the response Patient has had a partial response to lidocaine injection subacromial space still having the pain will prescribe pain medication and muscle relaxant advised to follow with orthopedic sling was given to the patient Independent Interpretation I performed an independent interpretation of an: Plain X-Ray Radiology Impression Discussion of test interpretation with radiology: I have reviewed the radiologist's reading. Discharge Plan Discharge Clinical Impression: Right rotator cuff tendonitis Patient Disposition: Home, Self-Care Instructions: Rotator Cuff Tendinitis (ED) Additional Instructions: Wear the sling for support Pain medication as prescribed Follow up with Orthopedics for further evaluation and management Prescriptions: New cyclobenzaprine 10 mg tablet 10 mg PO Q8H Qty: 20 0RF oxycodone 5 mg tablet 5 mg PO Q6H PRN (Reason: pain) Qty: 20 0RF Rx Instructions: Partial Fill upon patient request. No Action clotrimazole 1 % cream 1 appl topical BID Qty: 45 3RF sennosides [senna] 8.6 mg tablet 17.2 mg PO BEDTIME PRN (Reason: constipation) 90 Days Qty: 180 0RF Referrals: Sean Winters MD [Physician, Orthopedics] Referral Note: Right rotator tendinitis Print Language: Indonesian
--- OUTSIDE RECORDS SUMMARY | 2024-09-21 21:54 | XMS_ITS | Clinical Summary ---
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 Delivery Location:[facility] 2022 Term 39w 5d 8h 50m 3175 g (112 oz) M Vag-S pont Epidur al N Livin g Xu Pugh MD Delivery Location:[facility] Last Filed Vital Signs Vital Sign Reading [...] Years) (1 of 2 - PCV) 2009 Social Influencers of Health Screening 02/02/2022 COVID-19 Vaccine ( season) 2023 07/12/2021, 01/18/2021, 12/28/2020 Depression Screening 03/02/2024 Influenza Vaccine (#1) 2024 , 12/11/2020, 01/03/2019, [...] * Cervical Cancer Screening: HPV (04/30/2022) Pathologist [facility] Cervical Cancer Screening: HPV Negative, Abstracted [facility] Provider HEALTH MAINTENANCE Final Result * HIV Screening (04/15/2022) Pathologist [facility] HIV Screening Abstracted [facility] Provider HEALTH MAINTENANCE Final Result * Hepatitis C Screening (04/15/2022) Pathologist [facility] Hepatitis C Screening Abstracted [facility] Provider HEALTH MAINTENANCE Final Result from Last 3 Months or Most Recently Relevant to Health Maintenance Insurance MEDICAID - [place] Care Teams Cook Larder Relationship Specialty Start Date End Date Norma Gutierrez MD [address] [place] [address] PCP - General 10/07/22
--- OUTSIDE RECORDS SUMMARY | 2024-09-21 21:54 | XMS_ITS | Encounter Summary ---
Author Organization [facility] Address [address] [place] [address] Care Team Providers Care Flue Lining Dipper Name Role Phone Norma Gutierrez MD Primary Care Provider [phone] Encounter Details Date Type Department Care Team (Late st Contact Info) Description 07/12/2024 Orders Only [facility] [address] [place], [place] [id number] Norma Gutierrez MD [address] [place] [address] Normocytic anemia (Primary Dx) Social History Tobacco [...] Upcoming Encounters Date Type Department Care Team ([facility] st Contact Info) Description 10/11/2024 9:30 AM EDT Office Visit [facility] [address] [place] [address] Norma Gutierrez MD [address] [place] [address] Scheduled Orders Name Type Priority Associated Diagnoses Orde r Schedule CBC auto differential Lab Routine Normocytic anemia Expected: 07/12/2024 (Approximate), Expires: 07/12/2025 documented as of this encounter Visit Diagnoses Diagnosis Normocytic anemia- Primary Unspecified anemia documented in this encounter Additional Health Concerns Assessment Noted Time PHQ-9 Depression Total Score: 6 07/12/19 25 9:14 AM EDT documented as of this encounter Care Teams Flue Lining Dipper Relationship Specialty Start Date End Date Norma Gutierrez MD [address] [place] [address] PCP - General Internal Medicine 02/29/16 documented as of this encounter
[2024-09-22] MEDS: Lidocaine HCl 2 % MPF 5 ML VIAL INFILTRATI (00:21)
[2024-09-22] MEDS: Morphine Sulfate Immed Release 15 MG TABLET PO (01:07)
[2024-09-22 01:09] VITALS: BP 120/90; PULSE 80; RESP 20
[2024-09-22 01:12] VITALS: BP 120/90; PULSE 80; RESP 20; TEMP 36.9; O2SAT 100
== END 2024-09-22 01:13 | disposition home or self-care (01) ==
PROVIDERS: Emergency Provider Internal Medicine; PCP Internal Medicine
DX: M65.221 Calcific tendinitis, right upper arm (principal); M25.511 Pain in right shoulder
CPT/HCPCS: 20610; 73030; 99284; J2003

== ENCOUNTER → 2024-09-21 20:55 | Outpatient (BNV) | payer OTHER, MEDICAID, SELFPAY | PROVIDERS: PCP Internal Medicine; Visit Provider Radiology Diagnostic Radiology | DX: M25.511 Pain in right shoulder (principal) | CPT/HCPCS: 73030 ==

== ENCOUNTER 2024-11-07 12:22 | Outpatient (AMB) | payer OTHER, MEDICAID, SELFPAY ==
--- OUTSIDE RECORDS SUMMARY | 2024-11-02 11:15 | XMS_ITS | Encounter Summary ---
Author Organization [employer] Address [address] [place] [address] [place], [place] [address] Care Team Providers Care Pack Worker Name Role Phone Norma Gutierrez MD Primary Care Provider [phone] Reason for Referral * Cardiology (Routine) - Authorized Specialty Diagnoses / Procedures Referred By Contac t Referred To Contact Cardiology Diagnoses Syncope, unspecified syncope type Procedures Holter monitor - 48 hour Norma Gutierrez MD [address] [place] [address] Phone: tel: fax: [address] Phone: tel: fax: Referral ID Status Reason Start Date Expiration Date V isits Requested Visits Authorized [id number] Authorized 11/02/2024 11/02/2025 1 1 * Consultation (Routine) - Authorized Specialty Diagnoses / Procedures Referred By Contac t Referred To Contact Hematology and Oncology Diagnoses Normocytic anemia Norma Gutierrez MD [address] [place] [address] Phone: tel: fax: Nithya Carrion MD [address] [place] [address] Phone: tel: Referral ID Status Reason Start Date Expiration Date Visits Requested Visits Authorized [id number] Authorized Specialty Services Required 11/02/2024 11/02/2025 1 1 Encounter Details Date Type Department Care Team (Late st Contact Info) Description 11/02/2024 11:15 AM EDT Office Visit [facility] [address] [place] [address] Norma Gutierrez MD [address] [place] [address] Normocytic anemia (Primary Dx); Acute exacerbation of asthma with allergic rhinitis; Syncope, unspecified syncope type Social History Tobacco Use Types Packs/Day Years Used Date Smoking Tobacco: Never Smokeless Tobacco: Never Tobacco Cessation:Counseling Given: Not Answered Alcohol Use Standard Drinks/Week Comments Never 0 (1 standard drink = 0.6 oz pur e alcohol) Depression Answer Date Recorded Patient Health Questionnaire-9 Score 3 10/11/2024 Patient Health Questionnaire-9 Score 3 10/11/2024 Last PHQ-9: Questionnaire Data Not on file 0 10/11/2024 Housing Stability Answer Date Recorded What is [...] got money to buy more: Never True 10/11/2024 Within the past 12 months,th e food you bought just didn't last and you didn't have enough money to get more: Never True 01/2025 Transportation Answer Date Recorded In the past [...] Answer Date Recorded Patient Health Questionnaire-2 Score 1 10/11/2024 Internet Access Answer Date Recorded Internet Access Q1 Yes 07/11/2024 Internet Access Q2 Not on file 07/11/2024 Comments No Sex and Gender Information Value Date Recorded Sex Assigned at Female 12/30/2021 10:18 AM EDT Legal Sex Female 10:18 AM EDT Gender Identity Female 12/30/2021 10:18 AM EDT Sexual Orientation Straight 11/03/2024 3: 24 PM EDT documented as of this encounter Last Filed Vital Signs Vital Sign Reading Time Taken Comments Blood Pressure 148/90 11/02/2024 11:11 AM EDT Pulse 90 11/02/2024 11:11 AM EDT Temperature 36.8 C (98.2 F) 11/02/2024 11:11 AM EDT Respiratory Rate 12 11/02/2024 11:11 AM EDT Oxygen Saturation 99% 11/02/2024 11:11 AM EDT Inhaled Oxygen Concentration - - Weight 77.6 kg (171 lb) 11/02/2024 11:11 AM EDT Height 161 cm (5' 3.39 ) 11/02/2024 11:11 AM EDT Body Mass Index 29.92 11/02/2024 11:11 AM EDT documented in this encounter Progress Notes * Norma Gutierrez MD - 11/02/2024 11:15 AM EDT SUBJECTIVE Omid Ludny is a 34 y.o. female who presents for No chief complaint on file.. HPI Mrs. Omid Lundy is here for hospital discharge follow-up. She was [facility] on October 23, [facility]24 with an episode of dizziness and light headedness after standing. Patient walked to her kitchen and passed out and hit her head on the stove. Admits 1 previous similar episode 2 weeks prior to that 1. Patient has noted otherwise increased menstrual bleed after receiving a steroid injection to control pain of her right shoulder. D-dimer within normal limits CBC significant for an H&H of 9.4 30.4 which appears to be decreased from her baseline. EKG: Normal sinus rhythm at 87 bpm. Normal axis. Normal ME interval at 150, QTc normal at 433. No ST elevation or depression. test negative According to the [place] head CT total score: CT brain not indicated. Orthostatism noted. Hypotension with a drop of 24 mmHg of systolic blood pressure from seated to standing position associated with dizziness. Received 1 L of normal saline with improvement of her symptom. Discharged with the impression that the syncopal event was secondary to orthostatic hypotension. Advised appropriate hydration. Today patient reports that she has been doing better. Has been hydrating herself well. Currently receiving phentermine to help her lose weight. She has been trying to have a more balanced diet and she is doing her shakes regularly. Ms Omid Lundy reports intolerance to the use of oral iron and topiramate. Problem List[1] Allergies[2] Medications Ordered Prior to Encounter[3] Review of Systems Constitutional: Negative for activity change, appetite change, chills and diaphoresis. Eyes: Negative for pain, redness and itching. Respiratory: Negative for cough, choking and chest tightness. Cardiovascular: Negative for leg swelling. Gastrointestinal: Negative for abdominal pain. Genitourinary: Negative for enuresis, flank pain and frequency. Musculoskeletal: Negative for gait problem, joint swelling and myalgias. OBJECTIVE Vitals: 11/02/24 1111 BP: (!) 148/90 BP Location: Left arm Patient Position: Sitting BP Cuff Size: Adult Pulse: 90 Resp: 12 Temp: 98.2 ??F (36.8 ??C) TempSrc: Oral SpO2: 99% Weight: 171 lb (77.6 kg) Height: 5' 3.39 (1.61 m) Physical Exam Constitutional: General: She is not in acute distress. Appearance: Normal appearance. She is not ill-appearing, toxic-appearing or diaphoretic. Cardiovascular: Rate and Rhythm: Normal rate. Heart sounds: No murmur heard. Pulmonary: Effort: Pulmonary effort is normal. Skin: General: Skin is warm. Neurological: General: No focal deficit present. Mental Status: She is alert. Assessment/Plan Assessment/Plan Diagnoses and all orders for this visit: Normocytic anemia Comments: Patient is intolerant to oral iron Referred to hematology to consider parenteral iron Orders: - Referral to Hematology / Oncology; Future Acute exacerbation of asthma with allergic rhinitis Comments: Stable Benadryl refill to use as needed. Orders: - diphenhydrAMINE (BENADryl) 25 MG tablet; Take 1 tablet (25 mg) by mouth if needed at bedtime (wheezing). Syncope, unspecified syncope type - Holter monitor - 48 hour; Future Appropriate hydration recommended To repeat the CBC as directed in 4 weeks. Report any syncopal episode before the next visit [1] Patient Active Problem List Diagnosis Asthma Anxiety Candidal intertrigo Gastritis Overweight Cough Tension headache [2] No Known Allergies [3] Current Outpatient Medications on File Prior to Visit Medication Sig Dispense Refill albuterol (2.5 MG/3ML) 0.083% nebulizer solution Take 3 mL (2.5 mg) by nebulization every 4 (four) hours if needed for wheezing. 75 mL 11 budesonide-formoterol (Symbicort) 80-4.5 MCG/ACT inhaler Inhale 2 puffs in the morning and at bedtime. Rinse mouth with water after use to reduce aftertaste and incidence of candidiasis. Do not swallow. 30.6 each 11 ferrous sulfate (Fe Tabs) 325 (65 Fe) MG EC tablet Take 1 tablet (325 mg) by mouth with breakfast, with lunch, and with evening meal. Do not crush, chew, or split. 90 tablet 3 norethindrone (Micronor) 0.35 MG tablet Take 1 tablet by mouth Once per day. nystatin (Nystop) 834816 UNIT/GM powder Apply topically 2 times daily. 60 g 1 phentermine 15 MG capsule Take 1 capsule (15 mg) by mouth before breakfast. 30 capsule 0 Phentermine-Topiramate ER 3.75-23 MG capsule sustained-release 24 hr One Capsule daily 14 capsule 0 27-1 MG tablet Take 1 tablet by mouth in the morning. thiamine (Vitamin B-1) 50 MG tablet Take 50 mg by mouth in the morning. Ventolin HFA 108 (90 Base) MCG/ACT inhaler INHALE 2 PUFF DIRECTED FOUR TIMES A DAY NEEDED 18 g 5 [DISCONTINUED] cyclobenzaprine (Flexeril) 10 MG tablet Take 1 tablet (10 mg) by mouth 3 times dailyfor 10 days. 30 tablet 0 [DISCONTINUED] diphenhydrAMINE (BENADryl) 25 MG tablet Take 1 tablet (25 mg) by mouth if needed at bedtime (wheezing). 30 tablet 0 [DISCONTINUED] Tirzepatide-Weight Management (Zepbound) 2.5 MG/0.5ML solution auto-injector Inject 0.5 mL (2.5 mg) under the skin 1 (one) time per week. 2 mL 1 [DISCONTINUED] topiramate (Topamax) 25 MG tablet Take 1 tablet (25 mg) by mouth every 12 (twelve) hours. 60 tablet 11 No current facility-administered medications on file prior to visit. documented in this encounter Miscellaneous Notes * Patient Education Note - Norma Gutierrez MD - 11/02/2024 3:48 PM EDT Images from the original note were not included. Patient Education Table of Contents Iron Deficiency Anemia, Adult To view videos and all your education online visit, [email or web address] or scan this QR code with your smartphone. Access to this content will in one year. Iron Deficiency Anemia, Adult Iron deficiency anemia is a condition in which the concentration of red blood cells or hemoglobin in the blood is below normal because of too little iron. Hemoglobin is a substance in red blood cellsthat carries oxygen to the body's tissues. When the concentration of red blood cells or hemoglobin is too low, not enough oxygen reaches these tissues. Iron deficiency anemia is usually long-lasting, and it develops over time. It may or may not cause symptoms. It is a common type of anemia. What are the causes? This condition may be caused by: Not enough iron in the diet. Abnormal absorption in the gut. Blood loss. What increases the risk? You are more likely to develop this condition if you get menstrual periods (menstruate) or are . What are the signs or symptoms? Symptoms of this condition may include: Pale skin, lips, and nail beds. Weakness, dizziness, and getting tired easily. Shortness of breath when moving or exercising. Cold hands or feet. Mild anemia may not cause any symptoms. How is this diagnosed? This condition is diagnosed based on: Your medical history. A physical exam. Blood tests. How is this treated? This condition is treated by correcting the cause of your iron deficiency. Treatment may involve: Adding iron-rich foods to your diet. Taking iron supplements. If you are or , you may need to take extra iron because your normal diet usually does not provide the amount of iron that you need. Increasing vitamin C intake. Vitamin C helps your body absorb iron. Your health care provider may recommend that you take iron supplements along with a glass of orange juice or a vitamin C supplement. Medicines to make heavy menstrual flow planer offbearer. Surgery or additional testing procedures to determine the cause of your anemia. You may need repeat blood tests to determine whether treatment is working. If the treatment does not seem to be working, you may need more tests. Follow these instructions at home: Medicines Take suvc-dem-mevbkgi and prescription medicines only as told by your health care provider. This includes iron supplements and vitamins. This is important because too much iron can be harmful. ? For the best iron absorption, you should take iron supplements when your stomach is empty. If youcannot tolerate them on an empty stomach, you may need to take them with food. ? Do not drink milk or take antacids at the same time as your iron supplements. Milk and antacids may interfere with how your body absorbs iron. ? Iron supplements may turn stool (feces) a darker color and it may appear black. If you cannot tolerate taking iron supplements by mouth, talk with your health care provider about taking them through an IV or through an injection into a muscle. Eating and drinking Talk with your health care provider before changing your diet. Your provider may recommend that youeat foods that contain a lot of iron, such as: ? Liver. ? Low-fat (lean) beef. ? Breads and cereals that have iron added to them (are fortified). ? Eggs. ? Dried fruit. ? Dark green, leafy vegetables. To help your body use the iron from iron-rich foods, eat those foods at the same time as fresh fruits and vegetables that are high in vitamin C. Foods that are high in vitamin C include: ? Oranges. ? Peppers. ? Tomatoes. ? Mangoes. Managing constipation If you are taking an iron supplement, it may cause constipation. To prevent or treat constipation, you may need to: Drink enough fluid to keep your urine pale yellow. Take jpgb-bqg-egdixie or prescription medicines. Eat foods that are high in fiber, such as beans, whole grains, and fresh fruits and vegetables. Limit foods that are high in fat and processed sugars, such as fried or sweet foods. General instructions Return to your normal activities as told by your health care provider. Ask your health care provider what activities are safe for you. Keep all follow-up visits. Contact a health care provider if: You feel nauseous or you vomit. You feel weak. You become light-headed when getting up from a sitting or lying down position. You have unexplained sweating. You develop symptoms of constipation. You have a heaviness in your chest. You have trouble breathing with physical activity. Get help right away if: You faint. If this happens, do not drive yourself to the hospital. You have an irregular or rapid heartbeat. Summary Iron deficiency anemia is a condition in which the concentration of red blood cells or hemoglobin in the blood is below normal because of too little iron. This condition is treated by correcting the cause of your iron deficiency. Take ewzs-xmo-ozknvav and prescription medicines only as told by your health care provider. This includes iron supplements and vitamins. To help your body use the iron from iron-rich foods, eat those foods at the same time as fresh fruits and vegetables that are high in vitamin C. Seek medical help if you have signs or symptoms of worsening anemia. This information is not intended to replace advice given to you by your health care provider. Make sure you discuss any questions you have with your health care provider. Document Released: 2001-02-13 Document Updated: 2022-03-26 Document Reviewed: 2022-03-26 [employer] Patient Education ? 2024 [employer]. documented in this encounter Plan of Treatment Upcoming Encounters Date Type Department Care Team ([facility] st Contact Info) Description 12/12/2024 9:00 AM EDT Office Visit [facility] [address] [place] [address] Norma Gutierrez MD [address] [place] [address] Scheduled Orders Name Type Priority Associated Diagnoses Orde r Schedule Holter monitor - 48 hour Cardiac Services Routine Syncope, unspecified syncope type Expected: 11/02/2024 (Approximate), Expires: 11/02/2026 Scheduled Referrals Name Type Priority Associated Diagnoses Order Schedule Referral to Hematology / Oncology Outpatient Referral Routine Normocytic anemia Expected: 11/02/2024 (Approximate), Expires: 11/02/2025 documented as of this encounter Visit Diagnoses Diagnosis Normocytic anemia- Primary Unspecified anemia Acute exacerbation of asthma with allergic rhinitis Syncope, unspecified syncope type documented in this encounter Additional Health Concerns Assessment Noted Time PHQ-9 Depression Total Score: 3 10/12/19 25 9:54 AM EDT documented as of this encounter Care Teams Pack Worker Relationship Specialty Start Date End Date Norma Gutierrez MD [address] [place] [address] PCP - General Internal Medicine 02/29/16 documented as of this encounter
--- NOTE | 2024-11-07 12:06 | MHC.OFFVISWM ---
VS Expanded 11/07/24 12:08 Height 5 ft 3 in Weight 161 lb 2 oz BMI 28.5 Intake Visit Reasons: (TV) PO LSG 05/04/19 Allergies No Known Allergies (No Known Allergies*) Allergy (Verified 09/21/24 20:58) Medication List - Last Reconciled 11/07/24 by ANETTE Delarosa clotrimazole 1% 1 appl topical BID fluconazole 200 mg PO .weekly phentermine 15 mg PO DAILY sennosides (senna) 17.2 mg (2 x 8.6 mg) PO BEDTIME PRN HPI Comments Details: This?is a?34?yo F who is s/p LSG 05/04/2019. Weight at last visit on 09/06/2024 was 165.8 pounds. Last recorded weight from last week was 161.2lbs with BMI 28.5. No complaints of nausea, emesis, abdominal pain or reflux, or constipation. Was also started on phentermine by PCP which she reports is helping. Present meal plan includes: did start using [employer] j[employer], using Pure [employer] premade shakes and a meal will sometimes use Powercrunch bars instead of a shake was mostly doing coffee in AM, then 2 small meals; the Wellbutrin was decreasing her hunger Exercise routine includes: was doing better at the gym a few weeks ago, less the past few weeks has a gym membership and treadmill at home Pt notes excess skin under her breasts- saggy and often results in a rash. The excess skin is heavy and bothers her back. Was referred to [facility] and was considered for breast reduction. However her insurance is unlikely to cover this due to cup size not being large enough to qualify. Pt has excess skin of the upper arms that is bothersome. It is very heavy which is uncomfortable. It is difficult to raise her arms above her head due to the weight of the excess skin. It is difficult to wear short sleeves due to skin rubbing against body; if she wears a sleeveless shirt this causes chafing against the torso. Gets a lot of sweating which can develop an unpleasant odor due to having to wear sleeves even in hot weather. This also irritates the skin. Insurance- [employer] from her job, [employer] as secondary. [facility] Medical History Anxiety Asthma Surgical History History of repair of hiatal hernia History of sleeve gastrectomy H/O ovarian cystectomy S/P lumpectomy, right breast History of laparoscopic appendectomy Family History Father No problems noted. Mother HTN (hypertension) Brother No problems noted. Brother No problems noted. Sister No problems noted. Daughter No problems noted. Social History Unable to assess alcohol history related to: Unknown Alcohol intake: never Patient Tobacco Use Status: Never used Tobacco Assessment & Plan Assessment & Plan (1) Overweight: Code(s): E66.3 - Overweight Category: Medical (2) S/P laparoscopic sleeve gastrectomy: Code(s): Z98.84 - Bariatric surgery status Category: Surgical Plan Pt continues to lose weight and has adopted a plan from [employer]. PCP is prescribing phentermine. She is struggling with issues of excess skin of upper arms, unrelieved by topical rx treatment. On second round of PO antimicrobial treatment. Aware that target weight for BMI <27 is 152lbs. Reminded to have labs drawn. RTC 3-4 months for phone call visit.
[2024-11-07 12:08] VITALS: BMI 28.5
--- OUTSIDE RECORDS SUMMARY | 2024-11-07 14:42 | XMS_ITS | Encounter Summary ---
Author Organization [employer] Address [address] [facility] [address] [place] [address] Care Team Providers Care Trolley Collector Name Role Phone Norma Gutierrez MD Primary Care Provider [phone] Reason for Visit * Reason Onset Date Comments Reschedule 08/21/2023 Encounter Details Date Type Department Care Team ([facility] st Contact Info) Description 08/21/2023 Telephone [facility] [address] [place], [place] [phone] Norma Gutierrez MD [address] [place] [address] Reschedule Social History Tobacco Use Types Packs/Day [...] PM EDT documented as of this encounter Miscellaneous Notes * Telephone Encounter - Nelda Kidd - 08/21/2023 8:51 AM EDT Tc from pt requesting to reschedule 08/24 PAP appointment. Please contact pt at [phone] documented in this encounter Plan of Treatment Upcoming Encounters Date Type Department Care Team ([facility] st Contact Info) Description 12/12/2024 9:00 AM EDT Office Visit [facility] [address] [place] [address] Norma Gutierrez MD [address] [place] [address] documented as of this encounter Visit Diagnoses Not on filedocumented in this encounter Care Teams Trolley Collector Relationship Specialty Start Date End Date Norma Gutierrez MD [address] [place] [address] PCP - General Internal Medicine 02/29/16 documented as of this encounter
--- OUTSIDE RECORDS SUMMARY | 2024-11-07 14:42 | XMS_ITS | Encounter Summary ---
Author Organization [employer] Address [address] [facility] [address] [place] [address] Care Team Providers Care Senior Research Project Manager Name Role Phone Norma Gutierrez MD Primary Care Provider [phone] Encounter Details Date Type Department Care Team ([facility] st Contact Info) Description 10/25/2024 Orders Only [facility] [address] [place] [address] Provider, MD Moise Social History Tobacco Use [...] housing situation today? I have valentinaaleta vasques 07/11/[address] you [...] PM EDT documented as of this encounter Plan of Treatment Upcoming Encounters Date Type Department Care Team (Late st Contact Info) Description 12/12/2024 9:00 AM EDT Office Visit [facility] [address] [place] [address] Norma Gutierrez MD [address] [place] [address] documented as of this encounter Procedures Procedure Name Priority Date/Time Associated Diagnosis Comments ECG 12-LEAD Routine 10/23/2024 12:55 PM EDT documented in this encounter Results * ECG 12 lead (10/23/2024 12:55 PM EDT) us Historical Provider ECG ORDERABLES Final Res ult documented in this encounter Visit Diagnoses Not on filedocumented in this encounter Additional Health Concerns Assessment Noted Time PHQ-9 Depression Total Score: 3 10/12/19 25 9:54 AM EDT documented as of this encounter Care Teams Senior Research Project Manager Relationship Specialty Start Date End Date Norma Gutierrez MD [address] [place] [address] PCP - General Internal Medicine 02/29/16 documented as of this encounter
--- OUTSIDE RECORDS SUMMARY | 2024-11-07 14:42 | XMS_ITS | Encounter Summary ---
Author Organization [employer] Address [address] [facility] [address] [place] [address] Care Team Providers Care Press Writer Name Role Phone Norma Gutierrez MD Primary Care Provider [phone] Encounter Details Date Type Department Care Team ([facility] st Contact Info) Description 07/12/2024 Orders Only [facility] [address] [place], [place] [phone] Norma Gutierrez MD [address] [place] [address] Normocytic anemia (Primary Dx) Social History Tobacco [...] Upcoming Encounters Date Type Department Care Team ([facility] st Contact Info) Description 12/12/2024 9:00 AM EDT Office Visit [facility] [address] [place] [address] Norma Gutierrez MD [address] [place] [address] Scheduled Orders Name Type Priority Associated Diagnoses Orde r Schedule CBC auto differential Lab Routine Normocytic anemia Expected: 07/12/2024 (Approximate), Expires: 07/12/2025 documented as of this encounter Visit Diagnoses Diagnosis Normocytic anemia- Primary Unspecified anemia documented in this encounter Additional Health Concerns Assessment Noted Time PHQ-9 Depression Total Score: 6 07/12/19 25 9:14 AM EDT documented as of this encounter Care Teams Press Writer Relationship Specialty Start Date End Date Norma Gutierrez MD [address] [place] [address] PCP - General Internal Medicine 02/29/16 documented as of this encounter
--- OUTSIDE RECORDS SUMMARY | 2024-11-07 14:42 | XMS_ITS | Encounter Summary ---
Author Organization [employer] Address [address] [facility] 7t [place] [address] Care Team Providers Care Summer Nanny Name Role Phone Norma Gutierrez MD Primary Care Provider [phone] Encounter Details Date Type Department Care Team ([facility] st Contact Info) Description 10/12/2024 Orders Only [facility] [address] [place], [place] [phone] Norma Gutierrez MD [address] [place] [address] Class 1 obesity due to excess calories with serious comorbidity and body mass index (BMI) of 30.0 to 30.9 in adult (Primary Dx) Social History Tobacco Use Types [...] Upcoming Encounters Date Type Department Care Team ([facility] st Contact Info) Description 12/12/2024 9:00 AM EDT Office Visit [facility] [address] [place] [address] Norma Gutierrez MD [address] [place] [address] documented as of this encounter Visit Diagnoses Diagnosis Class 1 obesity due to excess calories with serious comorbidity and body mass index (BMI) of 30.0 to 30.9 in adult- Primary documented in this encounter Additional Health Concerns Assessment Noted Time PHQ-9 Depression Total Score: 3 10/12/19 25 9:54 AM EDT documented as of this encounter Care Teams Summer Nanny Relationship Specialty Start Date End Date Norma Gutierrez MD [address] [place] [address] PCP - General Internal Medicine 02/29/16 documented as of this encounter
--- OUTSIDE RECORDS SUMMARY | 2024-11-07 14:42 | XMS_ITS | Encounter Summary ---
Author Organization [employer] Address [address] [facility] [address] 7[address] [place] [address] Care Team Providers Care Back Gray Cloth Washer Name Role Phone Norma Gutierrez MD Primary Care Provider [phone] Encounter Details Date Type Department Care Team (Latest Contact Info) Description 11/02/2024 Travel Social History Tobacco Use Types Packs/Day [...] Description 12/12/2024 9:00 AM EDT Office Visit [facility] [address] [place] [address] Norma Gutierrez MD [address] [place] [address] documented as of this encounter Visit Diagnoses Not on filedocumented in this encounter Additional Health Concerns Assessment Noted Time PHQ-9 Depression Total Score: 3 10/12/19 25 9:54 AM EDT documented as of this encounter Care Teams Back Gray Cloth Washer Relationship Specialty Start Date End Date Norma Gutierrez MD [address] [place] [address] PCP - General Internal Medicine 02/29/16 documented as of this encounter
--- OUTSIDE RECORDS SUMMARY | 2024-11-07 14:42 | XMS_ITS | Clinical Summary ---
Author Organization [employer] Address 75 [facility] 7t [place] [address] Care Team Providers Care Forensic Science Technician Name Role Phone Norma Gutierrez MD Primary Care Provider [phone] Allergies No known active allergies Medications * This document contains information received from the source organization and may not represent a complete record from that organization. thiamine (Vitamin B-1) 50 MG tablet Take 50 mg by mouth in the morning. 022 Active 27-1 MG tablet Take 1 tablet by mouth in the morning. 023 Active norethindrone (Micronor) 0.35 MG tablet Take 1 tablet by mouth Once per day. 024 Active albuterol (2.5 MG/3ML) 0.083% nebulizer solutionIndicat ions:Cough, unspecified type,Moderate persistent asthma with acute exacerbation Take 3 mL (2.5 mg) by nebulization every 4 (four) hours if needed for wheezing. 75 mL 025 2025 Active budesonide-form oterol (Symbicort) 80-4.5 MCG/ACT inhalerIndicati ons:Moderate persistent asthma with acute exacerbation Inhale 2 puffs in the morning and at bedtime. Rinse mouth with water after use to reduce aftertaste and incidence of candidiasis. Do not swallow. 30.6 each 025 Active ferrous sulfate (Fe Tabs) 325 (65 Fe) MG EC tabletIndicatio ns:Normocytic anemia Take 1 tablet (325 mg) by mouth with breakfast, with lunch, and with evening meal. Do not crush, chew, or split. 90 tablet 3 025 2025 Active Ventolin HFA 108 (90 Base) MCG/ACT inhaler INHALE 2 PUFF DIRECTED FOUR TIMES A DAY NEEDED 18 g 5 Active nystatin (Nystop) 496718 UNIT/GM powderIndicatio ns:Intertrigo Apply topically 2 times daily. 60 g 1 025 2025 Active Phentermine-Top iramate ER 3.75-23 MG capsule sustained-relea se 24 hrIndications:C lass 1 obesity due to excess calories with serious comorbidity and body mass index (BMI) of 30.0 to 30.9 in adult One Capsule daily 14 capsule Active phentermine 15 MG capsuleIndicati ons:Class 1 obesity due to excess calories with serious comorbidity and body mass index (BMI) of 30.0 to 30.9 in adult Take 1 capsule (15 mg) by mouth before breakfast. 30 capsule 025 2024 Active diphenhydrAMINE (BENADryl) 25 MG tabletIndicatio ns:Acute exacerbation of asthma with allergic rhinitis Take 1 tablet (25 mg) by mouth if needed at bedtime (wheezing). 30 tablet 025 2024 Active diphenhydrAMINE (BENADryl) 25 MG tabletIndicatio ns:Acute exacerbation of asthma with allergic rhinitis Take 1 tablet (25 mg) by mouth if needed at bedtime (wheezing). 30 tablet 023 2024 Discontinued(R eorder (will not trigger notification to Pharmacy)) methocarbamol (Robaxin) 750 MG tabletIndicatio ns:Chronic bilateral low back pain without sciatica Take 1 tablet (750 mg) by mouth 4 times daily for 10 days. 40 tablet 025 2024 Discontinued(C ost of medication) cyclobenzaprine (Flexeril) 10 MG tabletIndicatio ns:Acute pain of right shoulder Take 1 tablet (10 mg) by mouth 3 times daily for 10 days. 30 tablet 025 2024 Discontinued(T herapy completed) Tirzepatide-Enrique ght Management (Zepbound) 2.5 MG/0.5ML solution auto-injectorIn dications:Class 1 obesity due to excess calories with serious comorbidity and body mass index (BMI) of 30.0 to 30.9 in adult Inject 0.5 mL (2.5 mg) under the skin 1 (one) time per week. 2 mL 1 025 2024 Discontinued(C ost of medication) topiramate (Topamax) 25 MG tabletIndicatio ns:Class 1 obesity due to excess calories with serious comorbidity and body mass index (BMI) of 30.0 to 30.9 in adult Take 1 tablet (25 mg) by mouth every 12 (twelve) hours. 60 tablet 11 025 2024 Discontinued(S chrissy effects) Active Problems Problem Noted Date Diagnosed Date [...] her body to adapt. -Pt was prescribed syhheuq-hypigxqqjyavo-jamlzogp (Excedrin Migraine) 250-250-65 MG tablet -Pt requested [...] has positive support from her family and evangelical community. Protective factors identified are her children and . Patient explored coping strategies to decrease urge of eating when not feeling hungry (ex: journaling, exercising, calling her best friend). Pt would like to re-start OP services and is also interested in trying medication management to decrease her anxiety. Discussed CBT as best approach for eating disorders. Gastritis 03/16/2012 Asthma 01/30/2012 Overweight 01/30/2012 Encounters Date Type Department Care Team Description 11/02/2024 11:15 AM EDT Office Visit [facility] [address] [place] [address] Norma Gutierrez MD Normocytic anemia (Primary Dx); Acute exacerbation of asthma with allergic rhinitis; Syncope, unspecified syncope type 11/02/2024 Travel 11/01/2024 Telephone [facility] [address] [place] [address] Norma Gutierrez MD Chart Prep 10/25/2024 Telephone [facility] [address] [place], [place] [phone] Norma Gutierrez MD ER Follow-up 10/25/2024 Orders Only [facility] [address] [place] [phone] ProviderMoise MD 10/13/2024 Telephone [facility] [address] [place] [phone] Norma Gutierrez MD Medication Question 10/12/2024 Orders Only [facility] [address] [place] [address] Norma Gutierrez MD Class 1 obesity due to excess calories with serious comorbidity and body mass index (BMI) of 30.0 to 30.9 in adult (Primary Dx) 10/11/2024 9:30 AM EDT Office Visit [facility] [address] [place] [address] Noram Gutierrez MD Annual physical exam (Primary Dx); Acute pain of right shoulder; Normocytic anemia; Class 1 obesity due to excess calories with serious comorbidity and body mass index (BMI) of 30.0 to 30.9 in adult 10/11/2024 Telephone [facility] [address] [place] [address] Norma Gutierrez MD Prior Authorization 10/11/2024 Travel 10/03/2024 Patient Outreach [address] [address] Norma Gutierrez MD Pre-visit Planning (Pre visit planning LVM ) 09/29/2024 3:30 PM EDT Office Visit [facility] [address] [place] [address] Norma Gutierrez MD Acute pain of right shoulder (Primary Dx); Anxiety 09/29/2024 Travel 09/28/2024 Telephone [facility] [address] [place] [address] Norma Gutierrez MD Chart Prep 09/27/[address] [address] Norma Gutierrez MD Nurse Triage 09/21/2024 Orders Only [facility] External Provider, [facility] 08/24/2024 3:40 PM EDT Office Visit [facility] [address] [place] [address] Norma Gutierrez MD Excess skin of breast (Primary Dx); Intertrigo 08/24/2024 Travel 08/19/[address] [address] Norma Gutierrez MD Nurse Triage 08/07/2024 Refill [facility] [address] [place] [address] Norma Gutierrez MD from Last 3 Months Immunizations Immunization Administration Dates Next Due HPV, Quadrivalent 01/09/2011,09/06/2010,06/26/19 11 Influenza injectable quadriv alent IIV4 with preservative 01/03/2019,02/09/2015 Influenza injectable quadriv alent preservative free 12/11/2020 Influenza, IIV3, injectable 11/14/2013, 5 Influenza, Split (incl. sundeep fied surface antigen) 01/30/2012 Influenza, seasonal, injecta ble, preservative free 01/16/2024,12/19/2004 MMR 01/03/2019,06/25/2010 Meningococcal MPSV4 12/19/2004 TD (adult), 2 Lf tetanus tox oid, preservative free, adsorbed 06/15/2001 Td (adult), unspecified 06/15/2001 Tdap 09/03/2022,07/22/2017,06/25/2010 Varicella 04/08/2019,03/11/2019 Family History Medical History Relation Name Comments Hypertension Mother Relation Name Status Comments Mother Social History Tobacco Use Types Packs/Day Years [...] Orientation Straight 11/03/2024 3: 24 PM EDT Last Filed Vital Signs Vital Sign [...] Mass Index 29.92 11/02/2024 11:11 AM EDT Plan of Treatment Upcoming Encounters Date Type Department Care Team (Late st Contact Info) Description 12/12/2024 9:00 AM EDT Office Visit [facility] [address] [place], [place] [phone] Norma Gutierrez MD [address] [place], [place] [phone] Health Maintenance Due Date Last Done Comments Disability Screening 1990 Family Planning (PISQ) 2005 Hepatitis B Vaccines (1 of 3 - 19+ 3-dose series) 2009 Pneumococcal Vaccine: Pediatrics (0 to 5 Years) and At-Risk Patients (6 to 49) Years (1 of 2 - PCV) 2009 COVID-19 Vaccine (4 - 2024- season) 2024 07/12/2021, 01/18/2021, 12/28/2020 Influenza Vaccine (#1) 2024 , 12/11/2020, 01/03/2019, Additional history exists Alcohol/Substance Use Screening 10/11/2025 10/11/2024 Depression Screening 10/11/2025 10/11/2024, 10/12/19 25 SDOH Screening 10/11/2025 10/11/2024 Tobacco Screening 11/02/2025 11/02/2024 Cervical Cancer Screening 05/01/2027 HPV/Cotest 05/01/2027 Pap Smear 05/01/2027 04/30/2022 Lipid Panel 07/11/2029 07/11/2024, 01/16/2023 DTaP/Tdap/Td Vaccines (5 - Td or Tdap) 09/03/2032 09/03/2022, 07/22/2017, 06/25/2010, Additional history exists Zoster Vaccines (1 of 2) 2040 RSV Patients and Patients Aged 60 years or older (1 - 1-dose 75+ series) 2065 Meningococcal Vaccine Aged Out 12/19/2004 No elsa yuval eligible based on patient's age to complete this topic HPV Vaccines Completed 01/09/2011, 09/2010, 06/25/2010 HIV Screening Completed 02/17/2019 Hepatitis C Screening Completed 07/11/2024 HIB Vaccines Aged Out No longer eligi [...] ECG 12-LEAD Routine 10/23/2024 12:55 PM EDT XR SHOULDER 2+ VIEWS RIGHT Routine 09/21/2024 9:37 PM EDT HEPATITIS C VIRAL RNA, QUANTITATIVE, REAL-TIME PCR Routine 07/11/2024 9:26 AM EDT Class 1 obesity due to excess calories with serious comorbidity and body mass index (BMI) of 30.0 to 30.9 in adult LIPID PANEL, STANDARD Routine 07/11/2024 9:26 AM EDT Class 1 obesity due to excess calories with serious comorbidity and body mass index (BMI) of 30.0 to 30.9 in adult HM PAP/HPV Routine 04/30/2022 2:50 PM EST ZZZ HISTORICAL HIV AB/AG Routine 02/17/2019 10:08 AM EST from Last 3 Months or Most Recently Relevant to Health Maintenance Results * ECG 12 lead (10/23/2024 12:55 PM EDT) us Historical Provider ECG ORDERABLES Final Res ult * XR Shoulder 2+ Views Right (09/21/2024 9:37 PM EDT) Anatomical Region Laterality Modality Upper Extremities, Shoulder Right Radi ographic Imaging 09/21/2024 9:37 PM EDT Narrative 09/21/2024 9:39 PM EDT [address] [address] XRay Report Signed Patient: Omid Lundy MR#: [id number] : 1990 Acct:[id number] Age/Sex: 34 / F ADM Date: 09/21/24 Loc: HO.ED Attending Dr: Ordering Physician: Olivia Borjas NP Date of Service: 09/21/24 Procedure(s): XR shoulder RT min 2V Accession Number(s): [id number] cc: Norma Gutierrez MD; Olivia Borjas NP CLINICAL HISTORY: pain around glenohumeral joint, decreased ROM 3 view right shoulder Comparison: None provided Findings: Bones intact. No dislocations. There is slight anterior inferior subluxation of the humeral head relative to the glenoid. No erosions. No radiopaque foreign body. Amorphous calcification adjacent to the greater tuberosity. IMPRESSION: 1. Calcific tendinitis of the rotator cuff. 2. Slight subluxation of the humeral head anteroinferior to the glenoid. Correlate with signs or symptoms of shoulder instability. This document has been electronically signed by: Angelic Pappas MD on 09/21/2024 21:37:50 Dictated By: Angelic Pappas MD Signed By: <Electronically signed by Angelic Pappas MD in OV> 09/21/242137 DD/ 36 TD/TT: 09/21/242136 Informatics Physician: Procedure Note Donottyroninterpreter, Image - 09/21/[address] [address] XRay Report Signed Patient: Omid LundyMR#: [id number] : 1990Acct:[id number] Age/Sex: 34 / FADM Date: 09/21/24 Loc: .ED Attending Dr: Ordering Physician: Olivia Borjas NP Date of Service: 09/21/24 Procedure(s): XR shoulder RT min 2V Accession Number(s): [id number] cc: Norma Gutierrez MD; Olivia Borjas NP CLINICAL HISTORY: pain around glenohumeral joint, decreased ROM 3 view right shoulder Comparison: None provided Findings: Bones intact. No dislocations. There is slight anterior inferior subluxation of the humeral head relative to the glenoid. No erosions. No radiopaque foreign body. Amorphous calcification adjacent to the greater tuberosity. IMPRESSION: 1. Calcific tendinitis of the rotator cuff. 2. Slight subluxation of the humeral head anteroinferior to the glenoid. Correlate with signs or symptoms of shoulder instability. This document has been electronically signed by: Angelic Pappas MD on 09/21/2024 21:37:50 Dictated By: Angelic Pappas MD Signed By: <Electronically signed by Angelic Pappas MD in OV> 09/21/242137 DD/ 36 TD/TT: 09/21/242136 Informatics Physician: [facility] External Provider IMG XR PROCEDURES Edited Result - Final * Hepatitis C Viral RNA, Quantitative, Real-Time PCR (07/11/2024 9:26 AM EDT) Hepatitis C Viral Load <15 NOT DETECTED NOT DETECTED IU/mL [facility] HCV Log PCR <1.18 NOT DETECTED NOT DETECTED Log IU/mL [facility] Comment:For additional infor matolya, please refer tohttp://education.Innovolt/faq/RBX36r3(This link is being provided for informational/educational purposes only.)THIS TEST WAS PERFORMED AT:[facility] [place] [id number] ANTONIO WICK MD Blood Venous blood specimen / Unknown 07/11/2024 9:26 AM EDT 07/11/2024 2:10 PM EDT Norma Gutierrez MD LAB BLOOD ORDERABLES Final Result [facility] [address] [place] [address] [phone] * Lipid Panel, Standard (07/11/2024 9:26 AM EDT) Triglycerides 66 <150 mg/dL [facility] Comment:Desirable Triglyceri de: less than 150 mg/dLBorderline High Triglyceride 150-199 mg/dLHigh Triglyceride: 200-499 mg/dLVery High Triglyceride: greater than or equal to 5OO mg/dL Cholesterol 144 <200 mg/dL [facility] Comment:Desirable Cholestero l: less than 200 mg/dLBorderline High Cholesterol: 200-239 mg/dLHigh Cholesterol: greater than 239 mg/dL LDL Cholesterol Calculated 84 <100 mg/dL [facility] Comment:Desirable LDL: less than 100 mg/dLNear Optimal/Above Optimal LDL: 110- 129 mg/dLBorderline High LDL: 130-159 mg/dLHigh LDL: 160-189 mg/dLVery High LDL: greater than or equal to 190 mg/dL HDL Cholesterol 47 >40 mg/dL [facility] Comment:Desirable HDL: great er than 40 mg/dL Note: This HDL assay may give artificially low results in patients with liver disease. Blood Venous blood specimen / Unknown 07/11/2024 9:26 AM EDT 07/11/2024 2:10 PM EDT Norma Gutierrez MD LAB BLOOD ORDERABLES Final Result [facility] [address] [place] [phone] * HM PAP/HPV (04/30/2022 2:50 PM EST) [facility] Provider HEALTH MAINTENANCE Final Result * HIV AB/AG (02/17/2019 10:08 AM EST) [facility] HIV AG/AB NONREACTIVE [facility] Comment: HIV-1 p24 Ag and/or HIV-1/HIV-2 Ab not detected. A test result that is nonreactive does not exclude the possibility of exposure to or infection with HIV-1 and/or HIV-2. Nonreactive results in this assay for individuals with prior exposure to HIV-1 and/or HIV-2 may be due to antigen and antibody levels that are below the limit of detection of this assay. The [employer] Inspector HIV Ag/Ab Combo assay result and supplemental assay results should be interpreted in conjunction with the patient's clinical presentation, history and other laboratory results. If the results are inconsistent with clinical evidence, additional testing is suggested to confirm the result. 02/17/2019 10:0 8 AM EST Norma Gutierrez MD HISTORICAL/NON ORDERABLE LA BS Final Result [facility] [address] from Last 3 Months or Most Recently Relevant to Health Maintenance Insurance , [facility] [address] [place] [address] [facility] Care Teams Forensic Science Technician Relationship Specialty Start Date End Date Norma Gutierrez MD [address] [place] [id number] PCP - General Internal Medicine 02/29/16
--- OUTSIDE RECORDS SUMMARY | 2024-11-07 14:43 | XMS_ITS | Encounter Summary ---
Author Organization [email or web address] Address [address] [facility] [address] [place] [address] Care Team Providers Care Sap Bw Developer Name Role Phone Norma Gutierrez MD Primary Care Provider [phone] Encounter Details Date Type Department Care Team ([facility] st Contact Info) Description 05/24/2024 Orders Only [facility] [address] [place] [address] Provider, MD Moise Social History Tobacco Use [...] Description 12/12/2024 9:00 AM EDT Office Visit [facility] [address] [place] [address] Norma Gutierrez MD [address] [place] [address] documented as of this encounter Procedures Procedure Name Priority Date/Time Associated Diagnosis Comments HM PAP/HPV Routine 04/30/2022 2:50 PM EST documented in this encounter Results * HM PAP/HPV (04/30/2022 2:50 PM EST) Historical Provider HEALTH MAINTENANCE Final Result documented in this encounter Visit Diagnoses Not on filedocumented in this encounter Care Teams Sap Bw Developer Relationship Specialty Start Date End Date Norma Gutierrez MD [address] [place] [address] PCP - General Internal Medicine 02/29/16 documented as of this encounter
--- OUTSIDE RECORDS SUMMARY | 2024-11-07 14:43 | XMS_ITS | Clinical Summary ---
Author Organization [place] [address] Isak [facility] Building Address [address] [place] [address] Phone Care Team Providers Care Bookbinder Apprentice Name Role Phone Norma Gutierrez MD Primary Care Provider [phone] Allergies No known active allergies Medications albuterol [...] Encounters Date Type Department Care Team Description 10/23/2024 3:03 PM EDT - 10/23/2024 6:49 PM EDT Emergency [facility] Emergency [address] [place] [phone] Kannan Francis MD Orthostatic hypotension (Primary Dx) Discharge Disposition: Home or Self Care from Last 3 Months Immunizations Name Administration [...] cyst removal OVARIAN CYST REMOVAL Right PROCEDURE: SD OVARIAN CYSTECTOMY UNI/BI OTHER SURGICAL HISTORY 2019 [...] Sexual Orientation Not on file Obstetrics History * This document contains information received from the source organization and may not represent a complete record from that organization. Para Term AB IAB SAB Ectopic Multiple Livin g Live Births 6 3 3 2 2 Date Outcome GA Total Labor Labor/2nd/3rd Weight Sex Type Anes PTL Taylor A1 A5 Name Clin Term 2016 2017 Term 40w 1d 3487 g (123 oz) F Vag-S pont Epidur al N Livin g 8 9 Cali pritchett CNM 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 Delivery Location:[facility] 2022 Term 39w 5d 8h 50m 3175 g (112 oz) M Vag-S pont Epidur al N Livin g Xu Pugh MD Delivery Location:[facility] Last Filed Vital Signs Vital Sign Reading Time Taken Comments Blood Pressure 118/76 10/23/2024 6:34 PM EDT Pulse 95 10/23/2024 6:34 PM EDT Temperature 36.2 C (97.1 F) 10/23/2024 6:34 PM EDT Respiratory Rate 16 10/23/2024 6:34 PM EDT Oxygen Saturation 100% 10/23/2024 6:34 PM EDT Inhaled Oxygen Concentration - - Weight 77.6 kg (171 lb) 10/23/2024 2:58 PM EDT Height 160 cm (5' 3 ) 10/23/2024 2:58 PM EDT Body Mass Index 30.29 10/23/2024 2:58 PM EDT Plan of Treatment Health Maintenance Due Date Last Done Comments Hepatitis B Vaccines (1 of 3 - 19+ 3-dose series) 2009 Pneumococcal Vaccine: Pediatrics (0 to 5 Years) and At-Risk Patients (6 to 49 Years) (1 of 2 - PCV) 2009 Social Influencers of Health Screening 02/02/2022 Depression Screening 03/02/2024 COVID-19 Vaccine ( season) 2024 07/12/2021, 01/18/2021, 12/28/2020 Influenza Vaccine (#1) 2024 , 12/11/2020, 01/03/2019, Additional history exists Cervical Cancer Screening: HPV 05/01/2027 04/30/2022 Cholesterol Screening (Lipid Panel) 07/11/2029 07/11/2024 DTaP,Tdap,and Td Vaccines (5 - Td or [...] Name Priority Date/Time Associated Diagnosis Comments ECG ANNOTATED 10/24/2024 ECG 12-LEAD STAT 10/23/2024 3:37 PM EDT D-DIMER STAT 10/23/2024 3:32 PM EDT TROPONIN I HIGH SENSITIVITY Timed 10/23/2024 3:32 PM EDT HCG, SERUM, QUALITATIVE STAT Add-on 10/23/2024 3:26 PM EDT COMPREHENSIVE METABOLIC PANEL STAT Add-on 10/23/2024 3:26 PM EDT CBC WITH AUTO DIFFERENTIAL STAT 10/23/2024 3:26 PM EDT MAGNESIUM STAT 10/23/2024 3:26 PM EDT CBC AND DIFFERENTIAL STAT 10/23/2024 3:26 PM EDT HM HPV Routine 04/30/2022 HEPATITIS C SCREENING Routine 04/15/2022 HIV SCREENING Routine 04/15/2022 from Last 3 Months or Most Recently Relevant to Health Maintenance Results * ECG-Annotated (10/24/2024) us Provider Onbase ECG ORDERABLES Final Result * ECG 12 lead (10/23/2024 3:37 PM EDT) Pathologist [facility] Ventricular Rate ECG 87 BPM GEMUSE Atrial Rate 87 BPM GEMUSE P-R Interval 150 ms GEMUSE QRS Duration 78 ms GEMUSE Q-T Interval 360 ms GEMUSE QTc 433 ms GEMUSE P Wave [place] 66 degrees GEMUSE R [place] 60 degrees GEMUSE T [place] 60 degrees GEMUSE ECG Interpretation Normal sinus rhythm Nonspecific T wave abnormality Abnormal ECG When compared with ECG of 05-DEC-2020 18:19, No significant change was found Confirmed by JOSE C RESENDEZ ([id number]) on 10/25/2024 7:59:54 AM GEMUSE 10/23/2024 3:37 PM EDT 10/25/2024 7:59 AM EDT us Kannan Francis MD ECG ORDERABLES Final Result GEMUSE * Troponin I high sensitivity (10/23/2024 3:32 PM EDT) [facility] High Sensitivity Troponin I <3 <=54 ng/L LAB CHEMISTRY METHOD 10/23/2024 4:12 PM EDT [facility] Blood Venous blood specimen / Unknown Venipuncture / Unknown 10/23/2024 3:32 PM EDT 10/23/2024 3:42 PM EDT [facility] - 10/23/2024 4:12 PM EDT High levels of biotin in samples may falsely decrease hsTroponin values. Use caution when interpreting hsTroponin results in patients taking biotin who exhibit renal impairment (eGFR <60) or in patients taking more than 20 mg/day of biotin. Kannan Francis MD LAB BLOOD ORDERABLES Final R esult Performing Organization Address [facility]/ZIP Co de Phone Number [facility] [address] [place] [address], [place] [phone] * D-Dimer (Quantitative) (10/23/2024 3:32 PM EDT) D-Dimer, Quant (D-DU) 201 <=230 ng/mL DDU LAB COAGULATION METHOD 10/23/2024 3:53 PM EDT [facility] Blood Venous blood specimen / Unknown Venipuncture / Unknown 10/23/2024 3:32 PM EDT 10/23/2024 3:42 PM EDT [facility] - 10/23/2024 3:53 PM EDT D-Dimer <230 ng/mL (D-Dimer units) is the threshold for exclusion of DVT/PE. D-Dimer may be elevated in: Critically ill, severely infected, trauma patients, DIC, acute CVA, acute [place], unstable angina, AF, old age, , and smoking. D-Dimer may be decreased with: Initiation of heparin therapy and oral anticoagulants. us Kannan Francis MD LAB BLOOD ORDERABLES Final R esult Performing Organization Address City/[facility]/ZIP Co de Phone Number [facility] [address] [place] [address], * (ABNORMAL) CBC auto differential (10/23/2024 3:26 PM EDT) [facility] WBC 6.8 4.8 - 10.8 K/mcL LAB HEMETOLOGY METHOD 10/23/2024 3:46 PM EDT [facility] RBC 3.80 3.80 - 4.80 M/mcL LAB HEMETOLOGY METHOD 10/23/2024 3:46 PM EDT [facility] Hemoglobin 9.4(L) 11.5 - 16.0 g/dL LAB HEMETOLOGY METHOD 10/23/2024 3:46 PM EDT [facility] Hematocrit 30.4(L) 35.0 - 47.0 % LAB HEMETOLOGY METHOD 10/23/2024 3:46 PM EDT [facility] MCV 80.0 79.0 - 98.0 FL LAB HEMETOLOGY METHOD 10/23/2024 3:46 PM EDT [facility] MCH 24.7(L) 27.0 - 32.0 pcg LAB HEMETOLOGY METHOD 10/23/2024 3:46 [facility] MCHC 30.9(L) 32.0 - 37.0 g/dL LAB HEMETOLOGY METHOD 10/23/2024 3:46 PM EDT [facility] RDW 14.7 11.0 - 15.0 % LAB HEMETOLOGY METHOD 10/23/2024 3:46 PM EDT [facility] Platelets 292 130 - 400 K/mcL LAB HEMETOLOGY METHOD 10/23/2024 3:46 [facility] MPV 10.8 7.0 - 11.0 FL LAB HEMETOLOGY METHOD 10/23/2024 3:46 PM EDT [facility] NRBC 0.0 <1.0 % LAB HEMETOLOGY METHOD 10/23/2024 3:[facility] NRBC Absolute 0.00 <0.10 K/mcL LAB HEMETOLOGY METHOD 10/23/2024 3:46 PM [facility] Neutrophils Relative 56.5 % LAB HEMETOLOGY METHOD 10/23/2024 3:46 PM [facility] Lymphocytes Relative 27.9 % LAB HEMETOLOGY METHOD 10/23/2024 3:46 PM [facility] Monocytes Relative 8.1 % LAB HEMETOLOGY METHOD 10/23/2024 3:46 PM [facility] Eosinophils Relative 6.2 % LAB HEMETOLOGY METHOD 10/23/2024 3:46 PM [facility] Basophils Relative 1.0 % LAB HEMETOLOGY METHOD 10/23/2024 3:46 PM [facility] Immature Granulocytes Relative 0.3 % LAB HEMETOLOGY METHOD 10/23/2024 3:46 PM [facility] Neutrophils Absolute 3.81 1.50 - 7.00 K/mcL LAB HEMETOLOGY METHOD 10/23/2024 3:46 PM [facility] Lymphocytes Absolute 1.88 1.00 - 5.00 K/mcL LAB HEMETOLOGY METHOD 10/23/2024 3:46 PM [facility] Monocytes Absolute 0.55 0.20 - 1.00 K/mcL LAB HEMETOLOGY METHOD 10/23/2024 3:46 PM [facility] Eosinophils Absolute 0.42 0.00 - 0.50 K/mcL LAB HEMETOLOGY METHOD 10/23/2024 3:46 PM [facility] Basophils Absolute 0.07 0.00 - 0.20 K/mcL LAB HEMETOLOGY METHOD 10/23/2024 3:46 PM [facility] Immature Granulocytes Absolute 0.02 0.00 - 0.03 K/mcL LAB HEMETOLOGY METHOD 10/23/2024 3:46 PM EDT [facility] Blood Venous blood specimen / Unknown Venipuncture / Unknown 10/23/2024 3:26 PM EDT 10/23/2024 3:42 PM EDT Kannan Francis MD LAB BLOOD ORDERABLES Final R esult Performing Organization Address City/[facility]/ZIP Co de Phone Number [facility] [address] [place] [address], [place] [phone] * hCG, serum, qualitative (10/23/2024 3:26 PM EDT) hCG Qual Negative Negative 10/23/2024 4:43 PM EDT [facility] Blood Venous blood specimen / Unknown Venipuncture / Unknown 10/23/2024 3:26 PM EDT 10/23/2024 3:43 PM EDT Judie CHEEMA LAB BLOOD ORDERABLES Final R esult Performing Organization Address [facility]/ZIP Co de Phone Number [facility] [address] [place] [address], [place] [phone] * Magnesium (10/23/2024 3:26 PM EDT) Magnesium 2.1 1.9 - 2.6 mg/dL LAB CHEMISTRY METHOD 10/23/2024 4:08 PM EDT [facility] Blood Venous blood specimen / Unknown Venipuncture / Unknown 10/23/2024 3:26 PM EDT 10/23/2024 3:43 PM EDT Kannan Francis MD LAB BLOOD ORDERABLES Final R esult [facility] [address] [place] [address], * (ABNORMAL) Comprehensive Metabolic Panel (CMP) (10/23/2024 3:26 PM EDT) Sodium 139 133 - 145 mmol/L LAB CHEMISTRY METHOD 10/23/2024 4:08 PM [facility] Potassium 3.9 3.5 - 5.5 mmol/L LAB CHEMISTRY METHOD 10/23/2024 4:08 PM [facility] Chloride 111(H) 96 - 110 mmol/L LAB CHEMISTRY METHOD 10/23/2024 4:08 PM [facility] CO2 22 21 - 32 mmol/L LAB CHEMISTRY METHOD 10/23/2024 4:08 PM [facility] Anion Gap 6 3 - 11 LAB CHEMISTRY METHOD 10/23/2024 4:08 PM [facility] Glucose 83 70 - 100 mg/dL LAB CHEMISTRY METHOD 10/23/2024 4:08 PM [facility] BUN 13 5 - 25 mg/dL LAB CHEMISTRY METHOD 10/23/2024 4:08 PM [facility] Creatinine 0.92 0.50 - 1.10 mg/dL LAB CHEMISTRY METHOD 10/23/2024 4:08 PM [facility] eGFR 84 >=60 mL/min/1. 73m2 LAB CHEMISTRY METHOD 10/23/2024 4:08 PM [facility] Comment:Calculation based on the Chronic Kidney Disease Epidemiology Collaboration (CKD-EPI) equation refit without adjustment for race. BUN/Creatinine Ratio 14.1 LAB CHEMISTRY METHOD 10/23/2024 4:08 PM [facility] Calcium 8.5 8.5 - 10.5 mg/dL LAB CHEMISTRY METHOD 10/23/2024 4:08 PM [facility] AST (SGOT) 14 10 - 42 unit/L LAB CHEMISTRY METHOD 10/23/2024 4:08 PM EDT [facility] ALT (SGPT) 13 10 - 60 unit/L LAB CHEMISTRY METHOD 10/23/2024 4:08 PM EDT [facility] Alkaline Phosphatase 75 42 - 121 unit/L LAB CHEMISTRY METHOD 10/23/2024 4:08 PM EDT [facility] Total Protein 6.9 6.0 - 8.0 g/dL LAB CHEMISTRY METHOD 10/23/2024 4:08 PM EDT [facility] Albumin 3.9 3.2 - 5.0 g/dL LAB CHEMISTRY METHOD 10/23/2024 4:08 PM EDT [facility] Total Bilirubin 0.4 0.0 - 1.4 mg/dL LAB CHEMISTRY METHOD 10/23/2024 4:08 PM EDT [facility] Blood Venous blood specimen / Unknown Venipuncture / Unknown 10/23/2024 3:26 PM EDT 10/23/2024 3:43 PM EDT Kannan Francis MD LAB BLOOD ORDERABLES Final R esult [facility] [address] [place] [address], * Cervical Cancer Screening: HPV (04/30/2022) Pathologist [facility] Cervical Cancer Screening: HPV Negative, Abstracted Historical Provider HEALTH MAINTENANCE Final Result * HIV Screening (04/15/2022) Pathologist [facility] HIV Screening Abstracted Historical Provider HEALTH MAINTENANCE Final Result * Hepatitis C Screening (04/15/2022) Pathologist [facility] Hepatitis C Screening Abstracted Historical Emmanuel [facility]BI[facility] HEALTH MAINTENANCE Final Result from Last 3 Months or Most Recently Relevant to Health Maintenance Insurance MEDICAID - [place] [facility] Care Teams Bookbinder Apprentice Relationship Specialty Start Date End Date Norma Gutierrez MD [address] [place], [place] PCP - General 10/07/22
== END 2024-11-07 12:27 | disposition home or self-care (01) ==
LOC: HO.HBS 12:22
PROVIDERS: PCP Internal Medicine; Visit Provider Physician Assistant Surgical
DX: E66.3 Overweight (principal); Z68.28 Body mass index [BMI] 28.0-28.9, adult; Z90.3 Acquired absence of stomach [part of]; Z98.84 Bariatric surgery status
CPT/HCPCS: 99213; G2211

== ENCOUNTER 2024-11-09 09:38 | Outpatient (REF) | payer OTHER, MEDICAID, SELFPAY ==
[2024-11-09 10:03] LABS: MANUAL DIFF FLAG NO
[2024-11-09 10:38] LABS: Hematocrit 27.9 % (37.0-47.0); Hemoglobin 8.9 g/dl (12.0-16.0); Imm Gran Abs Auto 0.00 X10*3/uL (0.00-0.03); Imm Gran Pct Auto 0.0 % (0.0-0.4); Lymphocytes Absolute Auto 2.0 X10*3/uL (1.2-4.9); Mean Corpuscular HGB Conc 31.9 g/dl (31.0-35.0); Mean Corpuscular Hemoglobin 25.4 pg (27.0-33.0); Mean Corpuscular Volume 79.7 fL (80.0-98.0); NRBC Abs Auto 0.000 X10*3/uL (0.0-0.012); NRBC Pct Auto 0.0 /100WBC (0.0-0.2); Platelet Count 335 X10*3/uL (160-400); Red Blood Count 3.50 X10*6/uL (4.20-5.50); White Blood Count 5.1 X10*3/uL (4.8-10.8)
--- OUTSIDE RECORDS SUMMARY | 2024-11-09 11:31 | XMS_ITS | Encounter Summary ---
Author Organization [email or web address] Address [address] [facility] [address] [place] [address] Care Team Providers Care Debarker Operator Name Role Phone Norma Gutierrez MD Primary Care Provider [phone] Encounter Details Date Type Department Care Team ([facility] st Contact Info) Description 10/12/2024 Orders Only [facility] MED & PEDS [address], [place] [phone] Norma Gutierrez MD [address] [place] [address] Class 1 obesity due to excess calories [...] Upcoming Encounters Date Type Department Care Team ([facility] st Contact Info) Description 12/12/2024 9:00 AM EDT Office Visit [facility] MED & PEDS [address] [place] [address] Norma Gutierrez MD [address] [place] [address] documented as of this encounter Visit Diagnoses Diagnosis Class 1 obesity due to excess calories with serious comorbidity and body mass index (BMI) of 30.0 to 30.9 in adult- Primary documented in this encounter Additional Health Concerns Assessment Noted Time PHQ-9 Depression Total Score: 3 10/12/19 25 9:54 AM EDT documented as of this encounter Care Teams Debarker Operator Relationship Specialty Start Date End Date Norma Gutierrez MD [address] [place] [address] PCP - General Internal Medicine 02/29/16 documented as of this encounter
--- OUTSIDE RECORDS SUMMARY | 2024-11-09 11:32 | XMS_ITS | Encounter Summary ---
Author Organization [employer] Address [address] [facility] [address] [place] [address] Care Team Providers Care Parts Sales Counterperson Name Role Phone Norma Gutierrez MD Primary Care Provider [phone] Reason for Visit * Reason Onset Date Comments Reschedule 08/21/2023 Encounter Details Date Type Department Care Team ([facility] st Contact Info) Description 08/21/2023 Telephone [facility] MED & PEDS [address] [place], [place] [phone] Norma Gutierrez MD [address] [place] [address] Reschedule Social History Tobacco Use Types Packs/Day [...] 08/24 PAP appointment. Please contact pt at [phone] documented in this encounter Plan of Treatment Upcoming Encounters Date Type Department Care Team ([facility] st Contact Info) Description 12/12/2024 9:00 AM EDT Office Visit [facility] MED & PEDS [address] [place] [address] Norma Gutierrez MD [address] [place] [address] documented as of this encounter Visit Diagnoses Not on filedocumented in this encounter Care Teams Parts Sales Counterperson Relationship Specialty Start Date End Date Norma Gutierrez MD [address] [place] [address] PCP - General Internal Medicine 02/29/16 documented as of this encounter
--- OUTSIDE RECORDS SUMMARY | 2024-11-09 11:32 | XMS_ITS | Encounter Summary ---
Author Organization [employer] Address [address] [facility] [address] [place] [address] Care Team Providers Care Reeling Operator Name Role Phone Norma Gutierrez MD Primary Care Provider [phone] Encounter Details Date Type Department Care Team ([facility] st Contact Info) Description 10/25/2024 Orders Only [facility] [address] [place] [address] Provider, MD Moise Social History Tobacco Use [...] Description 12/12/2024 9:00 AM EDT Office Visit [facility] CHC MED & PEDS [address] [place] [address] Norma Gutierrez MD [address] [place] [address] documented as of this encounter Procedures Procedure [...] documented as of this encounter Care Teams Reeling Operator Relationship Specialty Start Date End Date Norma Gutierrez MD [address] [place] [address] PCP - General Internal Medicine 02/29/16 documented as of this encounter
--- OUTSIDE RECORDS SUMMARY | 2024-11-09 11:32 | XMS_ITS | Encounter Summary ---
Author Organization [employer] Address [address] [facility] [address] [place] [address] Care Team Providers Care Baker Doughnut Name Role Phone Norma Gutierrez MD Primary Care Provider [phone] Encounter Details Date Type Department Care Team ([facility] st Contact Info) Description 07/12/2024 Orders Only [facility] MED & PEDS [address] [place], [place] [phone] Norma Gutierrez MD [address] [place] [address] Normocytic anemia (Primary Dx) Social History Tobacco [...] Upcoming Encounters Date Type Department Care Team ([facility] st Contact Info) Description 12/12/2024 9:00 AM EDT Office Visit [facility] MED & PEDS [address] [place], [place] [phone] Norma Gutierrez MD [address] [place] [address] documented as of this encounter Procedures Procedure Name Priority Date/Time Associated Diagnosis Comments CBC WITH AUTO DIFFERENTIAL Routine 11/09/2024 10:02 AM EDT Normocytic anemia documented in this encounter Results * (ABNORMAL) CBC auto differential (11/09/2024 10:02 AM EDT) White Blood Count 5.1 4.8 - 10.8 X10*3/uL [facility] Red Blood Count 3.50(L) 4.20 - 5.50 X10*6/uL [facility] Hemoglobin 8.9(L) 12.0 - 16.0 g/dl [facility] Hematocrit 27.9(L) 37.0 - 47.0 % [facility] Mean Corpuscular Volume 79.7(L) 80.0 - 98.0 fL [facility] Mean Corpuscular Hemoglobin 25.4(L) 27.0 - 33.0 pg [facility] Mean Corpuscular HGB Conc 31.9 31.0 - 35.0 g/dl [facility] Red Cell Distribution Width 16.2(H) 11.0 - 16.0 % [facility] Platelet Count 335 160 - 400 X10*3/uL [facility] Mean Platelet Volume 11.2 9.4 - 12.3 fL [facility] Neutrophils Percent Auto 45.6 45 - 73 % [facility] Imm Gran Pct Auto 0.0 0.0 - 0.4 % [facility] Lymphocytes Percent Auto 39.6 20 - 40 % [facility] Monocytes Percent Auto 9.5 2 - 11 % [facility] Eosinophils Percent Auto 4.1(H) 0 - 4 % [facility] Basophils Percent Auto 1.2 0 - 2 % [facility] NRBC Pct Auto 0.0 0.0 - 0.2 /100WBC [facility] Neutrophils Absolute Auto 2.3 2.0 - 8.3 x10*3/uL [facility] Imm Gran Abs Auto 0.00 0.00 - 0.03 X10*3/uL [facility] Lymphocytes Absolute Auto 2.0 1.2 - 4.9 X10*3/uL [facility] Monocytes Absolute Auto 0.5 0.1 - 1.2 X10*3/uL [facility] Eosinophils Absolute Auto 0.2 0.0 - 0.4 X10*3/uL [facility] Basophils Absolute Auto 0.1 0.0 - 0.2 X10*3/uL [facility] NRBC Abs Auto 0.000 0.0 - 0.012 X10*3/uL [facility] Blood Venous blood specimen / Unknown 11/09/2024 10:02 AM EDT 11/09/2024 10:02 AM EDT us Norma Gutierrez MD LAB BLOOD ORDERABLES Final Result [facility] [address] [place] [phone] [phone] documented in this encounter Visit Diagnoses Diagnosis Normocytic anemia- Primary Unspecified anemia documented in this encounter Additional Health Concerns Assessment Noted Time PHQ-9 Depression Total Score: 6 07/12/19 25 9:14 AM EDT documented as of this encounter Care Teams Baker Doughnut Relationship Specialty Start Date End Date Norma Gutierrez MD [address] [place] [address] PCP - General Internal Medicine 02/29/16 documented as of this encounter
--- OUTSIDE RECORDS SUMMARY | 2024-11-09 11:32 | XMS_ITS | Clinical Summary ---
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 Delivery Location:[facility] 2022 Term 39w 5d 8h 50m 3175 g (112 oz) M Vag-S pont Epidur al N Livin g Xu Pugh MD Delivery Location:[facility] Last Filed Vital Signs Vital Sign [...] 12 lead (10/23/2024 3:37 PM EDT) Pathologist [facility] Ventricular Rate ECG 87 BPM GEMUSE Atrial Rate 87 BPM GEMUSE P-R Interval 150 ms GEMUSE QRS Duration 78 ms GEMUSE Q-T Interval 360 ms GEMUSE QTc 433 ms GEMUSE P Wave [place] 66 degrees GEMUSE R [place] 60 degrees GEMUSE T [place] 60 degrees GEMUSE ECG Interpretation Normal sinus rhythm Nonspecific T wave abnormality Abnormal ECG When compared with ECG of 05-DEC-2020 18:19, No significant change was found Confirmed by JOSE C RESENDEZ ([id number]) on 10/25/2024 7:59:54 AM GEMUSE 10/23/2024 3:37 PM EDT 10/25/2024 7:59 AM EDT us Kannan Francis MD ECG ORDERABLES Final Result GEMUSE * Troponin I high sensitivity (10/23/2024 3:32 PM EDT) [facility] High Sensitivity Troponin I <3 <=54 ng/L LAB CHEMISTRY METHOD 10/23/2024 4:12 PM EDT [facility] Blood Venous blood specimen / Unknown Venipuncture / Unknown 10/23/2024 3:32 PM EDT 10/23/2024 3:42 PM EDT [facility] - 10/23/2024 4:12 PM EDT High levels of biotin in samples may falsely decrease hsTroponin values. Use caution when interpreting hsTroponin results in patients taking biotin who exhibit renal impairment (eGFR <60) or in patients taking more than 20 mg/day of biotin. Kannan Francis MD LAB BLOOD ORDERABLES Final R esult Performing Organization Address [facility]/ZIP Co de Phone Number [facility] [address] [place] [address], [place] [phone] * D-Dimer (Quantitative) (10/23/2024 3:32 PM EDT) D-Dimer, Quant (D-DU) 201 <=230 ng/mL DDU LAB COAGULATION METHOD 10/23/2024 3:53 PM EDT [facility] Blood Venous blood specimen / Unknown Venipuncture / Unknown 10/23/2024 3:32 PM EDT 10/23/2024 3:42 PM EDT [facility] - 10/23/2024 3:53 PM EDT D-Dimer <230 ng/mL (D-Dimer units) is the threshold for exclusion of DVT/PE. D-Dimer may be elevated in: Critically ill, severely infected, trauma patients, DIC, acute CVA, acute CA, unstable angina, AF, old age, , and smoking. D-Dimer may be decreased with: Initiation of heparin therapy and oral anticoagulants. us Kannan Francis MD LAB BLOOD ORDERABLES Final R esult Performing Organization Address City/[facility]/ZIP Co de Phone Number [facility] [address] [place] [address], * (ABNORMAL) CBC auto differential (10/23/2024 3:26 PM EDT) [facility] WBC 6.8 4.8 - 10.8 K/mcL LAB HEMETOLOGY METHOD 10/23/2024 3:46 PM EDT [facility] RBC 3.80 3.80 - 4.80 M/mcL LAB HEMETOLOGY METHOD 10/23/2024 3:46 PM EDT [facility] Hemoglobin 9.4(L) 11.5 - 16.0 g/dL LAB HEMETOLOGY METHOD 10/23/2024 3:46 PM EDT [facility] Hematocrit 30.4(L) 35.0 - 47.0 % LAB HEMETOLOGY METHOD 10/23/2024 3:46 PM EDT [facility] MCV 80.0 79.0 - 98.0 FL LAB HEMETOLOGY METHOD 10/23/2024 3:46 PM EDT [facility] MCH 24.7(L) 27.0 - 32.0 pcg LAB HEMETOLOGY METHOD [facility]24 [facility] MCHC 30.9(L) 32.0 - 37.0 g/dL LAB HEMETOLOGY METHOD 10/23/2024 3:46 PM EDT [facility] RDW 14.7 11.0 - 15.0 % LAB HEMETOLOGY METHOD 10/23/2024 3:46 PM EDT [facility] Platelets 292 130 - 400 K/mcL LAB HEMETOLOGY METHOD [facility]/23[facility]24 [facility] MPV 10.8 7.0 - 11.0 FL LAB HEMETOLOGY METHOD 10/23/2024 3:46 PM EDT [facility] NRBC 0.0 <1.0 % LAB HEMETOLOGY METHOD [facility]/23[facility]2024 [facility] NRBC Absolute 0.00 <0.10 K/mcL LAB HEMETOLOGY METHOD 10/23/2024 3:46 PM [facility] Neutrophils Relative 56.5 % LAB HEMETOLOGY METHOD 10/23/2024 3:46 PM [facility] Lymphocytes Relative 27.9 % LAB HEMETOLOGY METHOD 10/23/2024 3:46 PM [facility] Monocytes Relative 8.1 % LAB HEMETOLOGY METHOD 10/23/2024 3:46 PM [facility] Eosinophils Relative 6.2 % LAB HEMETOLOGY METHOD 10/23/2024 3:46 PM [facility] Basophils Relative 1.0 % LAB HEMETOLOGY METHOD 10/23/2024 3:46 PM [facility] Immature Granulocytes Relative 0.3 % LAB HEMETOLOGY METHOD 10/23/2024 3:46 PM [facility] Neutrophils Absolute 3.81 1.50 - 7.00 K/mcL LAB HEMETOLOGY METHOD 10/23/2024 3:46 PM [facility] Lymphocytes Absolute 1.88 1.00 - 5.00 K/mcL LAB HEMETOLOGY METHOD 10/23/2024 3:46 PM [facility] Monocytes Absolute 0.55 0.20 - 1.00 K/mcL LAB HEMETOLOGY METHOD 10/23/2024 3:46 PM [facility] Eosinophils Absolute 0.42 0.00 - 0.50 K/mcL LAB HEMETOLOGY METHOD 10/23/2024 3:46 PM [facility] Basophils Absolute 0.07 0.00 - 0.20 K/mcL LAB HEMETOLOGY METHOD 10/23/2024 3:46 PM [facility] Immature Granulocytes Absolute 0.02 0.00 - 0.03 K/mcL LAB HEMETOLOGY METHOD 10/23/2024 3:46 PM EDT [facility] Blood Venous blood specimen / Unknown Venipuncture / Unknown 10/23/2024 3:26 PM EDT 10/23/2024 3:42 PM EDT Kannan Francis MD LAB BLOOD ORDERABLES Final R esult Performing Organization Address City/[facility]/ZIP Co de Phone Number [facility] [address] [place] [address], [place] [phone] * hCG, serum, qualitative (10/23/2024 3:26 PM EDT) hCG Qual Negative Negative 10/23/2024 4:43 PM EDT [facility] Blood Venous blood specimen / Unknown Venipuncture / Unknown 10/23/2024 3:26 PM EDT 10/23/2024 3:43 PM EDT Judie CHEEMA LAB BLOOD ORDERABLES Final R esult Performing Organization Address [facility]/ZIP Co de Phone Number [facility] [address] [place] [address], [place] [phone] * Magnesium (10/23/2024 3:26 PM EDT) Magnesium 2.1 1.9 - 2.6 mg/dL LAB CHEMISTRY METHOD 10/23/2024 4:08 PM EDT [facility] Blood Venous blood specimen / Unknown Venipuncture / Unknown 10/23/2024 3:26 PM EDT 10/23/2024 3:43 PM EDT Kannan Francis MD LAB BLOOD ORDERABLES Final R esult [facility] [address] [place] [address], * (ABNORMAL) Comprehensive Metabolic Panel (CMP) (10/23/2024 3:26 PM EDT) Sodium 139 133 - 145 mmol/L LAB CHEMISTRY METHOD 10/23/2024 4:08 PM [facility] Potassium 3.9 3.5 - 5.5 mmol/L LAB CHEMISTRY METHOD 10/23/2024 4:08 PM [facility] Chloride 111(H) 96 - 110 mmol/L LAB CHEMISTRY METHOD 10/23/2024 4:08 PM [facility] CO2 22 21 - 32 mmol/L LAB CHEMISTRY METHOD 10/23/2024 4:08 PM [facility] Anion Gap 6 3 - 11 LAB CHEMISTRY METHOD 10/23/2024 4:08 PM [facility] Glucose 83 70 - 100 mg/dL LAB CHEMISTRY METHOD 10/23/2024 4:08 PM [facility] BUN 13 5 - 25 mg/dL LAB CHEMISTRY METHOD 10/23/2024 4:08 PM [facility] Creatinine 0.92 0.50 - 1.10 mg/dL LAB CHEMISTRY METHOD 10/23/2024 4:08 PM [facility] eGFR 84 >=60 mL/min/1. 73m2 LAB CHEMISTRY METHOD 10/23/2024 4:08 PM [facility] Comment:Calculation based on the Chronic Kidney Disease Epidemiology Collaboration (CKD-EPI) equation refit without adjustment for race. BUN/Creatinine Ratio 14.1 LAB CHEMISTRY METHOD 10/23/2024 4:08 PM [facility] Calcium 8.5 8.5 - 10.5 mg/dL LAB CHEMISTRY METHOD 10/23/2024 4:08 PM [facility] AST (SGOT) 14 10 - 42 unit/L LAB CHEMISTRY METHOD 10/23/2024 4:08 PM EDT [facility] ALT (SGPT) 13 10 - 60 unit/L LAB CHEMISTRY METHOD 10/23/2024 4:08 PM EDT [facility] Alkaline Phosphatase 75 42 - 121 unit/L LAB CHEMISTRY METHOD 10/23/2024 4:08 PM EDT [facility] Total Protein 6.9 6.0 - 8.0 g/dL LAB CHEMISTRY METHOD 10/23/2024 4:08 PM EDT [facility] Albumin 3.9 3.2 - 5.0 g/dL LAB CHEMISTRY METHOD 10/23/2024 4:08 PM EDT [facility] Total Bilirubin 0.4 0.0 - 1.4 mg/dL LAB CHEMISTRY METHOD 10/23/2024 4:08 PM EDT [facility] Blood Venous blood specimen / Unknown Venipuncture / Unknown 10/23/2024 3:26 PM EDT 10/23/2024 3:43 PM EDT Kannan Francis MD LAB BLOOD ORDERABLES Final R esult [facility] [address] [place] [address], * Cervical Cancer Screening: HPV (04/30/2022) Pathologist [facility] Cervical Cancer Screening: HPV Negative, Abstracted Historical Provider HEALTH MAINTENANCE Final Result * HIV Screening (04/15/2022) Pathologist [facility] HIV Screening Abstracted Historical Provider HEALTH MAINTENANCE Final Result * Hepatitis C Screening (04/15/2022) Pathologist [facility] Hepatitis C Screening Abstracted Historical Emmanuel COBIAN HEALTH MAINTENANCE Final Result from Last 3 Months or Most Recently Relevant to Health Maintenance Insurance MEDICAID - [place] [facility] Care Teams Plant Science Professor Relationship Specialty Start Date End Date Norma Gutierrez MD [address] [place], [place] PCP - General 10/07/22
--- OUTSIDE RECORDS SUMMARY | 2024-11-09 11:32 | XMS_ITS | Clinical Summary ---
Author Organization [employer] Address [address] [facility] [address] [place] [address] Care Team Providers Care Family Nurse Name Role Phone Norma Gutierrez MD Primary Care Provider [phone] Allergies No known active allergies Medications * [...] NEEDED 18 g 5 Active nystatin (Nystop) 067374 UNIT/GM powderIndicatio ns:Intertrigo Apply topically 2 times [...] her body to adapt. -Pt was prescribed pgocxya-lytyrngwnmsrg-iuikgzrg (Excedrin Migraine) 250-250-65 MG tablet -Pt requested [...] has positive support from her family and gnosticism community. Protective factors identified are her children [...] Description 11/02/2024 11:15 AM EDT Office Visit [facility] [address] [place] [address] Norma Gutierrez MD Normocytic anemia (Primary Dx); Acute exacerbation of asthma with allergic rhinitis; Syncope, unspecified syncope type 11/02/2024 Travel 11/01/2024 Telephone [facility] [address] [place] [address] Norma Gutierrez MD Chart Prep 10/25/2024 Telephone [facility] [address] [place], [place] [phone] Norma Gutierrez MD ER Follow-up 10/25/2024 Orders Only [facility] [address] [place] [address] [phone] ProviderMoise MD 10/13/2024 Telephone [facility] [address] [place] [phone] Norma Gutierrez MD Medication Question 10/12/2024 Orders Only [facility] [address] [place] [address] Norma Gutierrez MD Class 1 obesity due to excess calories with serious comorbidity and body mass index (BMI) of 30.0 to 30.9 in adult (Primary Dx) 10/11/2024 9:30 AM EDT Office Visit [facility] [address] [place] [address] Norma Gutierrez MD Annual physical exam (Primary Dx); Acute pain of right shoulder; Normocytic anemia; Class 1 obesity due to excess calories with serious comorbidity and body mass index (BMI) of 30.0 to 30.9 in adult 10/11/2024 Telephone [facility] [address] [place] [address] Norma Gutierrez MD Prior Authorization 10/11/2024 Travel 10/03/2024 Patient Outreach [address] [address] Norma Gutierrez MD Pre-visit Planning (Pre visit planning LVM ) 09/29/2024 3:30 PM EDT Office Visit [facility] [address] [place] [address] Norma Gutierrez MD Acute pain of right shoulder (Primary Dx); Anxiety 09/29/2024 Travel 09/28/2024 Telephone [facility] [address] [place] [address] Norma Gutierrez MD Chart Prep 09/27/[address] [address] Norma Gutierrez MD Nurse Triage 09/21/2024 Orders Only [facility] External Provider, [facility] 08/24/2024 3:40 PM EDT Office Visit [facility] [address] [place] [address] Norma Gutierrez MD Excess skin of breast (Primary Dx); Intertrigo 08/24/2024 Travel 08/19/[address] [address] Norma Gutierrez MD Nurse Triage from Last 3 Months Immunizations Immunization Administration [...] [facility] [address] [place] [address] Norma Gutierrez MD [address] [place] [address] Health Maintenance Due Date Last Done Comments Disability Screening 1990 Family Planning (PISQ) 2005 Hepatitis B Vaccines (1 of 3 - 19+ 3-dose series) 2009 Pneumococcal Vaccine: Pediatrics (0 to 5 Years) and At-Risk Patients (6 to 49) Years (1 of 2 - PCV) 2009 COVID-19 Vaccine (4 - season) 2024 07/12/2021, 01/18/2021, 12/28/2020 Influenza Vaccine [...] Routine 11/09/2024 10:02 AM EDT Normocytic anemia ECG 12-LEAD Routine 10/23/2024 12:55 PM EDT [...] Recently Relevant to Health Maintenance Results * (ABNORMAL) CBC auto differential (11/09/2024 10:02 AM EDT) White Blood Count 5.1 4.8 - 10.8 X10*3/uL [facility] Red Blood Count 3.50(L) 4.20 - 5.50 X10*6/uL [facility] Hemoglobin 8.9(L) 12.0 - 16.0 g/dl [facility] Hematocrit 27.9(L) 37.0 - 47.0 % [facility] Mean Corpuscular Volume 79.7(L) 80.0 - 98.0 fL [facility] Mean Corpuscular Hemoglobin 25.4(L) 27.0 - 33.0 pg [facility] Mean Corpuscular HGB Conc 31.9 31.0 - 35.0 g/dl [facility] Red Cell Distribution Width 16.2(H) 11.0 - 16.0 % [facility] Platelet Count 335 160 - 400 X10*3/uL [facility] Mean Platelet Volume 11.2 9.4 - 12.3 fL [facility] Neutrophils Percent Auto 45.6 45 - 73 % [facility] Imm Gran Pct Auto 0.0 0.0 - 0.4 % [facility] Lymphocytes Percent Auto 39.6 20 - 40 % [facility] Monocytes Percent Auto 9.5 2 - 11 % [facility] Eosinophils Percent Auto 4.1(H) 0 - 4 % [facility] Basophils Percent Auto 1.2 0 - 2 % [facility] NRBC Pct Auto 0.0 0.0 - 0.2 /100WBC [facility] Neutrophils Absolute Auto 2.3 2.0 - 8.3 x10*3/uL [facility] Imm Gran Abs Auto 0.00 0.00 - 0.03 X10*3/uL [facility] Lymphocytes Absolute Auto 2.0 1.2 - 4.9 X10*3/uL [facility] Monocytes Absolute Auto 0.5 0.1 - 1.2 X10*3/uL [facility] Eosinophils Absolute Auto 0.2 0.0 - 0.4 X10*3/uL [facility] Basophils Absolute Auto 0.1 0.0 - 0.2 X10*3/uL [facility] NRBC Abs Auto 0.000 0.0 - 0.012 X10*3/uL [facility] Blood Venous blood specimen / Unknown 11/09/2024 10:02 AM EDT 11/09/2024 10:02 AM EDT us Norma Gutierrez MD LAB BLOOD ORDERABLES Final Result [facility] [address] [place] [address] [phone] * ECG 12 lead (10/23/2024 12:55 PM EDT) us Historical Provider ECG ORDERABLES Final Res ult * XR Shoulder 2+ Views Right (09/21/2024 9:37 PM EDT) Anatomical Region Laterality Modality Upper Extremities, Shoulder Right Radi ographic Imaging 09/21/2024 9:37 PM EDT Narrative 09/21/2024 9:39 PM EDT [address] [address] XRay Report Signed Patient: Omid Lundy MR#: [id number] : 1990 Acct:[id number] Age/Sex: 34 / F ADM Date: 09/21/24 Loc: HO.ED Attending Dr: Ordering Physician: Olivia Borjas NP Date of Service: 09/21/24 Procedure(s): XR shoulder RT min 2V Accession Number(s): [id number] cc: Norma Gutierrez MD; Olivia Borjas NP [...] in OV> 09/21/242137 DD/ 36 TD/TT: 09/21/242136 Robotic Toy Inventor: Procedure Note Donotuseinterpreter, Image - 09/21/[address] [address] XRay Report Signed Patient: Omid LundyMR#: [id number] : 1990Acct:[id number] Age/Sex: 34 / FADM Date: 09/21/24 Loc: HO.ED Attending Dr: Ordering Physician: Olivia Borjas NP Date of Service: 09/21/24 Procedure(s): XR shoulder RT min 2V Accession Number(s): [id number] cc: Norma Gutierrez MD; Olivia Borjas NP [...] in OV> 09/21/242137 DD/ 36 TD/TT: 09/21/242136 Robotic Toy Inventor: [facility] External Provider IMG XR PROCEDURES Edited Result - Final * Hepatitis C Viral RNA, Quantitative, Real-Time PCR (07/11/2024 9:26 AM EDT) Hepatitis C Viral Load <15 NOT DETECTED NOT DETECTED IU/mL [facility] HCV Log PCR <1.18 NOT DETECTED NOT DETECTED Log IU/mL [facility] Comment:For additional infor mation, please refer tohttp://education.[employer]/faq/DIN13l6(This link is being provided for informational/educational purposes only.)THIS TEST WAS PERFORMED AT:[facility] [place] [id number] ANTONIO WICK MD Blood Venous blood specimen / Unknown 07/11/2024 9:26 AM EDT 07/11/2024 2:10 PM EDT Norma Gutierrez MD LAB BLOOD ORDERABLES Final Result Performing Organization Address [facility]/ZIP Co de Phone Number [facility] [address] [place] [address] [phone] * Lipid Panel, Standard (07/11/2024 9:26 AM EDT) Triglycerides 66 <150 mg/dL [facility] Comment:Desirable Triglyceri de: less than 150 mg/dLBorderline High Triglyceride 150-199 mg/dLHigh Triglyceride: 200-499 mg/dLVery High Triglyceride: greater than or equal to 5OO mg/dL Cholesterol 144 <200 mg/dL [facility] Comment:Desirable Cholestero l: less than 200 mg/dLBorderline High Cholesterol: 200-239 mg/dLHigh Cholesterol: greater than 239 mg/dL LDL Cholesterol Calculated 84 <100 mg/dL [facility] Comment:Desirable LDL: less than 100 mg/dLNear Optimal/Above Optimal LDL: 110- 129 mg/dLBorderline High LDL: 130-159 mg/dLHigh LDL: 160-189 mg/dLVery High LDL: greater than or equal to 190 mg/dL HDL Cholesterol 47 >40 mg/dL [facility] Comment:Desirable HDL: great er than 40 mg/dL Note: This HDL assay may give artificially low results in patients with liver disease. Blood Venous blood specimen / Unknown 07/11/2024 9:26 AM EDT 07/11/2024 2:10 PM EDT us Norma Gutierrez MD LAB BLOOD ORDERABLES Final Result Performing Organization Address City/[facility]/ZIP Co de Phone Number [facility] [address] [place] [address] [phone] * HM PAP/HPV (04/30/2022 2:50 PM [...] of detection of this assay. The Doe Complaint Investigator HIV Ag/Ab Combo assay result and supplemental assay results should be interpreted in conjunction with the patient's clinical presentation, history and other laboratory results. If the results are inconsistent with clinical evidence, additional testing is suggested to confirm the result. 02/17/2019 10:0 8 AM EST us Norma Gutierrez MD HISTORICAL/NON ORDERABLE LA MICAH Final Result Performing Organization Address City/State/[facility] Co de Phone Number [facility] Anywhere [address] from Last 3 Months or Most Recently Relevant to Health Maintenance Insurance [facility] , [address] [place] [address] [facility] Care Teams Family Nurse Relationship Specialty Start Date End Date Norma Gutierrez MD [address] [place] [phone] PCP - General Internal Medicine 02/29/16
--- OUTSIDE RECORDS SUMMARY | 2024-11-09 11:32 | XMS_ITS | Encounter Summary ---
Author Organization [employer] Address [address] [facility] [address] [place] [address] Care Team Providers Care Patient Account Representative Name Role Phone Norma Gutierrez MD Primary Care Provider [phone] Encounter Details Date Type Department Care Team ([facility] st Contact Info) Description 05/24/2024 Orders Only [facility] [address] [place] [address] Provider, MD Moise Social History Tobacco Use [...] Description 12/12/2024 9:00 AM EDT Office Visit [facility] [address] [place] [address] Norma Gutierrez MD [address] [place] [address] documented as of this encounter Procedures Procedure Name Priority Date/Time Associated Diagnosis Comments HM PAP/HPV Routine 04/30/2022 2:50 PM EST documented in this encounter Results * HM PAP/HPV (04/30/2022 2:50 PM EST) Historical Provider HEALTH MAINTENANCE Final Result documented in this encounter Visit Diagnoses Not on filedocumented in this encounter Care Teams Patient Account Representative Relationship Specialty Start Date End Date Norma Gutierrez MD [address] [place] [address] PCP - General Internal Medicine 02/29/16 documented as of this encounter
== END 2024-11-09 09:39 | disposition home or self-care (01) ==
LOC: HO.LAB 09:38
PROVIDERS: Internal Medicine; Visit Provider Physician Assistant Surgical
DX: D64.9 Anemia, unspecified (principal)
CPT/HCPCS: 36415; 85025

== ENCOUNTER → 2024-11-18 08:12 | Outpatient (REF) | payer OTHER, MEDICAID, SELFPAY ==
--- OUTSIDE RECORDS SUMMARY | 2024-11-13 22:36 | XMS_ITS | Encounter Summary ---
Author Organization [facility] Address [address] [place] [address] Care Team Providers Care Administrative Officer Name Role Phone Norma Gutierrez MD Primary Care Provider [phone] Reason for Visit * Reason Comments Vaginal Bleeding States she is going through pads every hour, increase in bleeding today, +dizziness Encounter Details Date Type Department Care Team (Late st Contact Info) Description 11/13/2024 10:36 PM EDT - 11/13/2024 11:04 PM EDT Emergency [facility] Emergency [address] [place] [id number] Jocelyne Darby MD [address] [place] [address] Tyrel Segundo MD [address] [place] [address] Episode of heavy vaginal bleeding (Primary Dx) Discharge Disposition: Home or Self Care Social History Tobacco Use Types Packs/Day Years Used Date Smoking Tobacco: Never Smokeless Tobacco: Never Alcohol Use Standard Drinks/Week Comments No 0 (1 standard drink = 0.6 oz pur e alcohol) Comments No Sex and Gender Information Value Date Recorded Sex Assigned at Not on file Legal Sex Female 4:53 AM EST Gender Identity Not on file Sexual Orientation Not on file documented as of this encounter Last Filed Vital Signs Vital Sign Reading Time Taken Comments Blood Pressure 128/92 11/13/2024 10:19 PM EDT Pulse 76 11/13/2024 10:19 PM EDT Temperature 36.7 C (98.1 F) 11/13/2024 10:19 PM EDT Respiratory Rate 19 11/13/2024 10:19 PM EDT Oxygen Saturation 99% 11/13/2024 10:19 PM EDT Inhaled Oxygen Concentration - - Weight - - Height - - Body Mass Index - - documented in this encounter Discharge Instructions * Discharge Instructions* Tyrel Segundo MD - 11/13/2024 10:55 PM EDT Your work-up in the emergency department showed vaginal bleeding. At this time you do not require admission to the hospital. You should follow-up with OBGYN and a primary care physician as soon as possible to review your labs/imaging and discuss any non-emergent findings from your visit today that may require further testing as an outpatient. Contact information to any follow up provider/specialist is provided above. Call as soon as possible to coordinate follow up. If you were prescribed any medications, please take as directed. documented in this encounter Medications at Time of Discharge albuterol HFA (ProAir HFA) 90 mcg/actuation inhaler Inhale 2 Puffs into the lungs every 6 hours as needed for Shortness of Breath. 05/26/2017 norethindrone (LEWIS,SOLANGE,YOSI ER,MICRONOR) 0.35 mg tabletIndications:E ncounter for surveillance of contraceptive pills TAKE 1 TABLET BY MOUTH 1 TIME EACH DAY. 28 tablet 12 05/10/2024 documented as of this encounter Discharge Disposition Disposition Code Departure Means Destination Comment s Home or Self Care documented in this encounter Progress Notes * Ale Aleman RN - 11/13/2024 10:19 PM EDT Pt c/o heavy vaginal bleeding with clots. + lightheadedness and fatigue. LMP approx 2 weeks ago. A few days after, began bleeding again and has been since. Today bleeding is heavy, pouring out like I am peeing . Denies abd pain. Is currently on oral contraceptives. Skin pale, neuros intact. Resps equal unlab. Non toxic appearing * Tyrel Segundo MD - 11/13/2024 10:12 PM EDT Patient Name: Omid Lundy Date and Time of Assessment: 10:41 PM EDT 11/13/24 Patient : 1990 Patient's PMD: Norma Gutierrez MD Chief Complaint Patient presents with ??? Vaginal Bleeding States she is going through pads every hour, increase in bleeding today, +dizziness HPI: 34 yo female presents with very heavy vaginal bleeding ongoing for almost one week, currently soaking 5-6 pads per day. Last menstrual period was three weeks ago, with bleeding resuming a few days later--initially spring tester, now significantly heavier. She has a history of heavy bleeding for three months after receiving an arm implant control approximately one year ago, and notes that bleedingworsened following a cortisone injection to her shoulder at the end of August. She reports weakness and fatigue attributed to anemia. Her obstetric history includes three pregnancies, one carried to term. She is unable to tolerate oral iron and is awaiting iron infusion. PHYSICAL EXAM: Visit Vitals BP (!) 128/92 (BP Location: Right arm;Upper, Patient Position: Sitting) Pulse 76 Temp 36.7 ??C (98.1 ??F) (Oral) Resp 19 SpO2 99% OB Status Having periods Smoking Status Never General: NAD, calm, cooperative Cardio: RRR Resp: no respiratory distress Abd: Soft, non-tender, non-distended Ext: No edema Neuro: AAOx3, no focal deficits MEDICAL DECISION MAKING: Patient presents today for vaginal bleeding Vital signs reviewed On initial evaluation, patient is in nad. Physical exam notable for mild pallor, normal vitals. Differential diagnosis: Anemia, , Symptomatic anemia Initial Plan: Based on the patient's presentation today, we will obtain labs. Denies any possibility of , and an in-ED test is negative. Mild anemia is documented, with hemoglobin today at 8.9 g/dL (previously 9.4 g/dL three weeks ago); Will provide outpatient follow up with OBGYN. Social determinants of health considered including housing follow-up social and financial support Please see ED course for my interpretation of lab results and imaging which I independently reviewed. Updates in patient care also noted accordingly. EMERGENCY DEPARTMENT COURSE AND TREATMENT: Available prior records were reviewed. Patient history and allergies reviewed. Nursing note reviewed. The diagnostic results contained in this document reflect the information available to the physician at the time of the patient encounter. Final results, when completed, will be found in the patient's hospital chart. Medications - No data to display Clinical Impressions as of 11/13/24 225 Episode of heavy vaginal bleeding Procedures Tyrel Segundo MD 11/13/242240 Tyrel Segundo MD 11/13/242253 documented in this encounter Plan of Treatment Upcoming Encounters Date Type Department Care Team (Late st Contact Info) Description 11/21/2024 6:30 PM EDT Appointment Radiology Department [address] [address] documented as of this encounter Procedures Procedure Name Priority Date/Time Associated Diagnosis Comments POC , URINE DIAGNOSTIC STAT 11/13/2024 10:28 PM EDT CBC WITH AUTO DIFFERENTIAL STAT 11/13/2024 10:27 PM EDT CBC AND DIFFERENTIAL STAT 11/13/2024 10:27 PM EDT BASIC METABOLIC PANEL STAT 11/13/2024 10:27 PM EDT documented in this encounter Results * POC , urine manually resulted (11/13/2024 10:28 PM EDT) HCG, Ur POC Negative Negative POC hCG Int QC Pass? Yes Yes Urine Urine specimen obtained by clean catch procedure / Unknown 11/13/2024 10:28 PM EDT Tyrel Segundo MD POINT OF CARE TEST ENTER/EDIT ORDERABLES Final Result * (ABNORMAL) CBC auto differential (11/13/2024 10:27 PM EDT) WBC 8.0 4.8 - 10.8 K/mcL LAB HEMETOLOGY METHOD 11/13/2024 10:39 PM [facility] RBC 3.70(L) 3.80 - 4.80 M/mcL LAB HEMETOLOGY METHOD 11/13/2024 10:39 PM [facility] Hemoglobin 8.9(L) 11.5 - 16.0 g/dL LAB HEMETOLOGY METHOD 11/13/2024 10:39 PM [facility] Hematocrit 29.5(L) 35.0 - 47.0 % LAB HEMETOLOGY METHOD 11/13/2024 10:39 PM [facility] MCV 80.8 79.0 - 98.0 FL LAB HEMETOLOGY METHOD 11/13/2024 10:39 PM [facility] MCH 24.4(L) 27.0 - 32.0 pcg LAB HEMETOLOGY METHOD 11/13/2024 10:39 PM [facility] MCHC 30.2(L) 32.0 - 37.0 g/dL LAB HEMETOLOGY METHOD 11/13/2024 10:39 PM [facility] RDW 15.7(H) 11.0 - 15.0 % LAB HEMETOLOGY METHOD 11/13/2024 10:39 PM [facility] Platelets 329 130 - 400 K/[facility] LAB HEMETOLOGY METHOD 11/13/2024 10:39 PM [facility] MPV 10.5 7.0 - 11.0 FL LAB HEMETOLOGY METHOD 11/13/2024 10:39 PM [facility] NRBC 0.0 <1.0 % LAB HEMETOLOGY METHOD 11/13/2024 10:39 PM [facility] NRBC Absolute 0.00 <0.10 K/[facility] LAB HEMETOLOGY METHOD 11/13/2024 10:39 PM [facility] Neutrophils Relative 51.3 % LAB HEMETOLOGY METHOD 11/13/2024 10:39 PM [facility] Lymphocytes Relative 34.7 % LAB HEMETOLOGY METHOD 11/13/2024 10:39 PM [facility] Monocytes Relative 9.3 % LAB HEMETOLOGY METHOD 11/13/2024 10:39 PM [facility] Eosinophils Relative 3.5 % LAB HEMETOLOGY METHOD 11/13/2024 10:39 PM [facility] Basophils Relative 1.0 % LAB HEMETOLOGY METHOD 11/13/2024 10:39 PM [facility] Immature Granulocytes Relative 0.2 % LAB HEMETOLOGY METHOD 11/13/2024 10:39 PM [facility] Neutrophils Absolute 4.11 1.50 - 7.00 K/mcL LAB HEMETOLOGY METHOD 11/13/2024 10:39 PM [facility] Lymphocytes Absolute 2.79 1.00 - 5.00 K/mcL LAB HEMETOLOGY METHOD 11/13/2024 10:39 PM [facility] Monocytes Absolute 0.75 0.20 - 1.00 K/mcL LAB HEMETOLOGY METHOD 11/13/2024 10:39 PM [facility] Eosinophils Absolute 0.28 0.00 - 0.50 K/mcL LAB HEMETOLOGY METHOD 11/13/2024 10:39 PM [facility] Basophils Absolute 0.08 0.00 - 0.20 K/mcL LAB HEMETOLOGY METHOD 11/13/2024 10:39 PM [facility] Immature Granulocytes Absolute 0.02 0.00 - 0.03 K/mcL LAB HEMETOLOGY METHOD 11/13/2024 10:39 PM [facility] Blood Venous blood specimen / Unknown Venipuncture / Unknown 11/13/2024 10:27 PM EDT 11/13/2024 10:31 PM EDT us Tyrel Segundo MD LAB BLOOD ORDERABLES Final Res ult [facility] [address] [place] [address], * (ABNORMAL) Basic metabolic panel (11/13/2024 10:27 PM EDT) Sodium 139 133 - 145 mmol/L LAB CHEMISTRY METHOD 11/13/2024 10:53 PM [facility] Potassium 3.3(L) 3.5 - 5.5 mmol/L LAB CHEMISTRY METHOD 11/13/2024 10:53 PM [facility] Chloride 110 96 - 110 mmol/L LAB CHEMISTRY METHOD 11/13/2024 10:53 PM [facility] CO2 23 21 - 32 mmol/L LAB CHEMISTRY METHOD 11/13/2024 10:53 PM [facility] Anion Gap 6 3 - 11 LAB CHEMISTRY METHOD 11/13/2024 10:53 PM [facility] Glucose 88 70 - 100 mg/dL LAB CHEMISTRY METHOD 11/13/2024 10:53 PM [facility] BUN 9 5 - 25 mg/dL LAB CHEMISTRY METHOD 11/13/2024 10:53 PM [facility] Creatinine 0.87 0.50 - 1.10 mg/dL LAB CHEMISTRY METHOD 11/13/2024 10:53 PM [facility] eGFR 90 >=60 mL/min/1. 73m2 LAB CHEMISTRY METHOD 11/13/2024 10:53 PM [facility] Comment:Calculation based on the Chronic Kidney Disease Epidemiology Collaboration (CKD-EPI) equation refit without adjustment for race. BUN/Creatinine Ratio 10.3 LAB CHEMISTRY METHOD 11/13/2024 10:53 PM EDT [facility] Calcium 8.7 8.5 - 10.5 mg/dL LAB CHEMISTRY METHOD 11/13/2024 10:53 PM EDT [facility] Blood Venous blood specimen / Unknown Venipuncture / Unknown 11/13/2024 10:27 PM EDT 11/13/2024 10:31 PM EDT us Tyrel Segundo MD LAB BLOOD ORDERABLES Final Res ult [facility] [address] [place] [address], documented in this encounter Visit Diagnoses Diagnosis Episode of heavy vaginal bleeding- Primary documented in this encounter Care Teams Administrative Officer Relationship Specialty Start Date End Date Norma Gutierrez MD [address] [place] [address] PCP - General 10/07/22 documented as of this encounter
--- OUTSIDE RECORDS SUMMARY | 2024-11-15 15:20 | XMS_ITS | Encounter Summary ---
Author Organization [facility] Address [address] [place] [address] Care Team Providers Care Linter Tender Name Role Phone Norma Gutierrez MD Primary Care Provider [phone] Reason for Referral * Imaging (Routine) - Pending Review Specialty Diagnoses / Procedures Referred By Cary t Referred To Contact Radiology Diagnoses Abnormal uterine bleeding (AUB) Blood loss anemia Procedures US Pelvis Non OB Complete w Transvaginal US Pelvis Non OB Complete w Transvaginal Maribel Frey PA [address] [place] [address] Phone: tel: fax: [address] Phone: tel: Referral ID Status Reason Start Date Expiration Date V isits Requested Visits Authorized [id number] Pending Review 11/15/2024 11/15/2025 1 1 Reason for Visit * Reason Comments irregular bleeding Encounter Details Date Type Department Care Team ([facility] st Contact Info) Description 11/15/2024 3:20 PM EDT Office Visit Obstetrics and Gynecology - [address] [phone] Maribel Frey PA [address] [place] [address] Abnormal uterine bleeding (AUB) (Primary Dx); Blood loss anemia Social History Tobacco Use Types Packs/Day Years [...] Sign Reading Time Taken Comments Blood Pressure 113/85 11/15/2024 3:29 PM EDT Pulse 87 11/15/2024 3:29 PM EDT Temperature - - Respiratory Rate 14 11/15/2024 3:29 PM EDT Oxygen Saturation - - Inhaled Oxygen Concentration - - Weight 77.4 kg (170 lb 9.6 oz) 11/15/2024 3:29 P M EDT Height 155 cm (5' 1.02 ) 11/15/2024 3:29 PM EDT Body Mass Index 32.21 11/15/2024 3:29 PM EDT documented in this encounter Ordered Prescriptions Prescription Sig Dispense Quantity Refills Last Filled Start Date End Date norethindrone (AYGESTIN) 5 mg tablet Take 2 tablets (10 mg total) by mouth 1 (one) time each day. 60 each 1 11/15/2024 documented in this encounter Progress Notes * ANETTE Anton - 11/15/2024 3:20 PM EDT CHIEF COMPLAINT: irregular bleeding IDENTIFIER:Omid Lundy is a 34 y.o. female. HPI: Omid presents today for evaluation of abnormal uterine bleeding causing blood loss anemia. The patient states that she has had ongoing heavy periods which have resulted in anemia requiring iron supplementation. She has difficulty tolerating this and is scheduled for iron transfusion on Thursday. In recent weeks, she has reported increasing in bleeding, including between periods now which have caused her to faint and resulted in visits to the emergency department. Earlier this week she was seen with a hemoglobin of 8.9. She reports that she feels dizzy and tired at times. She has orthostatic hypotension. She has been maintained on norethindrone for control and takes this regularly. ROS: GENERAL: Denies fever, chills, recent changes in weight HEENT: Denies sore throat, rhinorrhea, or changes in vision, taste or smell. RESPIRATORY: Denies cough, shortness of breath, or wheezing CARDIOVASCULAR: Denies CP, palpitations, tachycardia BREAST: Denies lumps, discharge, pain or change in skin GASTROINTESTINAL: Denies abdominal pain, N/V/D/C. Denies changes in appetite. POLITICAL ORGANIZER: See HPI MUSCULOSKELETAL: Denies myalgias, arthralgias SKIN: Denies changes in skin, hair or nails. No concerning rash or itching NEUROLOGIC: Denies MCCAULEY, LOC, weakness, dizziness, numbness or tingling. PAST MEDICAL HISTORY: Reviewed Past Medical History: 02/24/2017: Asthma Comment: DX:Asthma 03/01/2022: COVID-19 affecting in first trimester Comment: DX:COVID-19 affecting in first trimester. And 04/2024 MEDICATIONS: Current Outpatient Medications: albuterol HFA (ProAir HFA) 90 mcg/actuation inhaler, Inhale 2 Puffs into the lungs every 6 hours asneeded for Shortness of Breath., Disp: , Rfl: norethindrone (LEWIS,SOLANGE,ALISIA,MICRONOR) 0.35 mg tablet, TAKE 1 TABLET BY MOUTH 1 TIME EACH DAY., Disp: 28 tablet, Rfl: 12 ALLERGIES: Patient has no known allergies. PHYSICAL EXAM: Visit Vitals BP 113/85 Pulse 87 Resp 14 Ht 1.55 m (61.02 ) Wt 77.4 kg (170 lb 9.6 oz) LMP 11/01/2024 BMI 32.21 kg/m?? OB Status Having periods Smoking Status Never BSA 1.77 m?? GENERAL: Well-appearing, well-nourished patient SKIN: Warm, normal for ethnicity and dry. EYE: Visual [place] intact grossly, No conjunctiva injection. No scleral icterus. EENT: Normocephalic/atraumatic. Good dentition, NECK: Trachea midline. No visible evidence of thyroid enlargement. PULM: Non-labored breathing. No audible wheezing EXTREMITIES: ROM grossly intact. Normal Tone. NEURO: Alert & oriented x3, no aphasia or dysarthria PSYCH: Normal affect, fluid speech, good eye contact, appropriate demeanor LABS: No orders of the defined types were placed in this encounter. ASSESSMENT & PLAN: 34-year-old female with significant abnormal uterine bleeding resulting in blood loss anemia I suspect there may be a component that is anatomical in nature given the bleeding between periods.We will treat the acute blood loss with Aygestin 10 mg daily. Pelvic ultrasound ordered to evaluatefor anatomical causes. Follow-up results and treat accordingly. documented in this encounter Plan of Treatment Upcoming Encounters Date Type Department Care Team (Late st Contact Info) Description 11/21/2024 6:30 PM EDT Appointment Radiology Department [address] [address] Scheduled Orders Name Type Priority Associated Diagnoses Orde r Schedule US Pelvis Non OB Complete w Transvaginal Imaging Routine Abnormal uterine bleeding (AUB) Blood loss anemia Expected: 11/15/2024, Expires: 11/15/2025 documented as of this encounter Visit Diagnoses Diagnosis Abnormal uterine bleeding (AUB)- Primary Blood loss anemia Acute posthemorrhagic anemia documented in this encounter Discontinued Medications Medication Sig Discontinue Reason Start Date End Da te norethindrone (LEWIS,SOLANGE,ALISIA,MICR ONOR) 0.35 mg tabletIndications:Encounte r for surveillance of contraceptive pills TAKE 1 TABLET BY MOUTH 1 TIME EACH DAY. 05/10/2024 11/15/2024 documented as of this encounter Care Teams Linter Tender Relationship Specialty Start Date End Date Norma Gutierrez MD [address] [place] [address] PCP - General 10/07/22 documented as of this encounter
--- NOTE | 2024-11-18 08:25 | HM_ITS ---
* Total monitoring time 2 days. * Underlying rhythm is sinus with an average rate of 93/Min. * Rare supraventricular ectopy. * Rare ventricular ectopy. * No significant pauses or high-grade AV blocks. * No patient markers or diary events. MTDD
--- OUTSIDE RECORDS SUMMARY | 2024-11-18 08:39 | XMS_ITS | Clinical Summary ---
Author Organization [employer] Address [address] [facility] 7t [place] [address] Care Team Providers Care Speed Winder Name Role Phone Norma Gutierrez MD Primary Care Provider [phone] Allergies No known active allergies Medications * [...] of candidiasis. Do not swallow. 30.6 each Active Ventolin HFA 108 (90 Base) MCG/ACT inhaler INHALE 2 PUFF DIRECTED FOUR TIMES A DAY NEEDED 18 g 5 Active nystatin (Nystop) 855646 UNIT/GM powderIndicatio ns:Intertrigo Apply topically 2 times daily. 60 g 1 025 2025 Active Phentermine-Top iramate ER 3.75-23 MG capsule sustained-relea se 24 hrIndications:C lass 1 obesity due to excess calories with serious comorbidity and body mass index (BMI) of 30.0 to 30.9 in adult One Capsule daily 14 capsule Active diphenhydrAMINE (BENADryl) 25 MG tabletIndicatio ns:Acute exacerbation of asthma with allergic rhinitis Take 1 tablet (25 mg) by mouth if needed at bedtime (wheezing). 30 tablet 025 2024 Active phentermine 15 MG capsuleIndicati ons:Class 1 obesity due to excess calories with serious comorbidity and body mass index (BMI) of 30.0 to 30.9 in adult TAKE 1 CAPSULE BY MOUTH BEFORE BREAKFAST 30 capsule 025 Active ferrous sulfate (Fe Tabs) 325 (65 Fe) MG EC tabletIndicatio ns:Normocytic anemia Take 1 tablet (325 mg) by mouth with breakfast, with lunch, and with evening meal. Do not crush, chew, or split. 90 tablet 3 025 2025 Active diphenhydrAMINE (BENADryl) 25 MG tabletIndicatio ns:Acute exacerbation of asthma with allergic rhinitis Take 1 tablet (25 mg) by mouth if needed at bedtime (wheezing). 30 tablet 023 2024 Discontinued(R eorder (will not trigger notification to Pharmacy)) ferrous sulfate (Fe Tabs) 325 (65 Fe) MG EC tabletIndicatio ns:Normocytic anemia Take 1 tablet (325 mg) by mouth with breakfast, with lunch, and with evening meal. Do not crush, chew, or split. 90 tablet 3 025 2024 Discontinued(R eorder (will not trigger notification to Pharmacy)) cyclobenzaprine (Flexeril) 10 MG tabletIndicatio ns:Acute pain [...] tablet 11 025 2024 Discontinued(S chrissy effects) phentermine 15 MG capsuleIndicati ons:Class 1 obesity due to excess calories with serious comorbidity and body mass index (BMI) of 30.0 to 30.9 in adult Take 1 capsule (15 mg) by mouth before breakfast. 30 capsule 025 2024 Discontinued(R eorder (will not trigger notification [...] her body to adapt. -Pt was prescribed rbyztcd-ubkuofmokqavi-hosjreps (Excedrin Migraine) 250-250-65 MG tablet -Pt requested [...] has positive support from her family and yazdanism community. Protective factors identified are her children [...] Encounters Date Type Department Care Team Description 11/14/2024 Telephone [facility] [address] [place] [address] Norma Gutierrez MD Medication Question 11/11/2024 Results Follow-Up [facility] [address] [place] [address] dArianne Raymundo RN CBC auto differential 11/10/2024 Orders Only [facility] [address] [place] [address] Norma Gutierrez MD 11/09/2024 Refill [facility] [address] [place] [address] Norma Gutierrez MD Class 1 obesity due to excess calories with serious comorbidity and body mass index (BMI) of 30.0 to 30.9 in adult 11/02/2024 11:15 AM EDT Office Visit [facility] [address] [place] [address] Norma Gutierrez MD Normocytic anemia (Primary Dx); Acute exacerbation of asthma with allergic rhinitis; Syncope, unspecified syncope type 11/02/2024 Travel 11/01/2024 Telephone [facility] [address] [place] [address] Norma Gutierrez MD Chart Prep 10/25/2024 Telephone [facility] [address] [place] [address] Norma Gutierrez MD ER Follow-up 10/25/2024 Orders Only [employer] [address] [place] [address] Moise Benitez MD 10/13/[address] [address] Norma Gutierrez MD Medication Question 10/12/2024 Orders Only [facility] [address] [place] [address] Norma Gutierrez MD Class 1 obesity due to excess calories with serious comorbidity and body mass index (BMI) of 30.0 to 30.9 in adult (Primary Dx) 10/11/2024 9:30 AM EDT Office Visit [facility] [address] [place] [address] Norma Gutierrez MD Annual physical exam (Primary Dx); Acute pain of right shoulder; Normocytic anemia; Class 1 obesity due to excess calories with serious comorbidity and body mass index (BMI) of 30.0 to 30.9 in adult 10/11/2024 Telephone [facility] [address] [place] [address] Norma Gutierrez MD Prior Authorization 10/11/2024 Travel 10/03/2024 Patient Outreach [facility] [address] [place] [address] Norma Gutierrez MD Pre-visit Planning (Pre visit planning LVM ) 09/29/2024 3:30 PM EDT Office Visit [facility] [address] [place] [address] Norma Gutierrez MD Acute pain of right shoulder (Primary Dx); Anxiety 09/29/2024 Travel 09/28/2024 Telephone [facility] [address] [place] [address] Norma Gutierrez MD Chart Prep 09/27/[address] [address] Norma Gutierrez MD Nurse Triage 09/21/2024 Orders Only [facility] External Provider, [facility] 08/24/2024 3:40 PM EDT Office Visit [facility] [address] [place] [address] Norma Gutierrez MD Excess skin of breast (Primary Dx); Intertrigo 08/24/2024 Travel 08/19/[address] [address] Norma Gutierrez MD Nurse Triage from Last [...] 12/12/2024 9:00 AM EDT Office Visit [facility] [address] [place], [place] [phone] Norma Gutierrez MD [address] [place], [place] [phone] Health Maintenance Due Date Last Done Comments Disability Screening 1990 Family Planning (PISQ) 2005 Hepatitis B Vaccines (1 of 3 - 19+ 3-dose series) 2009 Pneumococcal Vaccine: Pediatrics (0 to 5 Years) and At-Risk Patients (6 to 49) Years (1 of 2 - PCV) 2009 COVID-19 Vaccine ( - season) 2024 07/12/2021, 01/18/2021, 12/28/2020 Influenza [...] Blood Count 5.1 4.8 - 10.8 X10*3/uL [facility] Red Blood Count 3.50(L) 4.20 - 5.50 X10*6/uL [facility] Hemoglobin 8.9(L) 12.0 - 16.0 g/dl [facility] Hematocrit 27.9(L) 37.0 - 47.0 % [facility] Mean Corpuscular Volume 79.7(L) 80.0 - 98.0 fL [facility] Mean Corpuscular Hemoglobin 25.4(L) 27.0 - 33.0 pg [facility] Mean Corpuscular HGB Conc 31.9 31.0 - 35.0 g/dl [facility] Red Cell Distribution Width 16.2(H) 11.0 - 16.0 % [facility] Platelet Count 335 160 - 400 X10*3/uL [facility] Mean Platelet Volume 11.2 9.4 - 12.3 fL [facility] Neutrophils Percent Auto 45.6 45 - 73 % [facility] Imm Gran Pct Auto 0.0 0.0 - 0.4 % [facility] Lymphocytes Percent Auto 39.6 20 - 40 % [facility] Monocytes Percent Auto 9.5 2 - 11 % [facility] Eosinophils Percent Auto 4.1(H) 0 - 4 % [facility] Basophils Percent Auto 1.2 0 - 2 % [facility] NRBC Pct Auto 0.0 0.0 - 0.2 /100WBC [facility] Neutrophils Absolute Auto 2.3 2.0 - 8.3 x10*3/uL [facility] Imm Gran Abs Auto 0.00 0.00 - 0.03 X10*3/uL [facility] Lymphocytes Absolute Auto 2.0 1.2 - 4.9 X10*3/uL [facility] Monocytes Absolute Auto 0.5 0.1 - 1.2 X10*3/uL [facility] Eosinophils Absolute Auto 0.2 0.0 - 0.4 X10*3/uL [facility] Basophils Absolute Auto 0.1 0.0 - 0.2 X10*3/uL [facility] NRBC Abs Auto 0.000 0.0 - 0.012 X10*3/uL [facility] Blood Venous blood specimen / Unknown 11/09/2024 10:02 AM EDT 11/09/2024 10:02 AM EDT us Norma Gutierrez MD LAB BLOOD ORDERABLES Final Result [facility] [address] [place] [phone] * ECG 12 lead (10/23/2024 12:55 PM EDT) us Historical Provider ECG ORDERABLES Final Res ult * XR Shoulder 2+ Views Right (09/21/2024 9:37 PM EDT) Anatomical Region Laterality Modality Upper Extremities, Shoulder Right Radi ographic Imaging 09/21/2024 9:37 PM EDT Narrative 09/21/2024 9:39 PM EDT [address] [address] XRay Report Signed Patient: Omid Lundy MR#: [id number] : 1990 Acct:[id number] Age/Sex: 34 / F ADM Date: 09/21/24 Loc: HO.ED Attending Dr: Ordering Physician: Olivia Borjas NP Date of Service: 09/21/24 Procedure(s): XR shoulder RT min 2V Accession Number(s): [id number] cc: Norma Gutierrez MD; Olivia Borjas NP [...] in OV> 09/21/242137 DD/ 36 TD/TT: 09/21/242136 Foot Caster: Procedure Note Donotuseinterpreter, Image - 09/21/2024 [place] [address] XRay Report Signed Patient: Omid LundyMR#: [id number] : 1990Acct:[id number] Age/Sex: 34 / FADM Date: 09/21/24 Loc: HO.ED Attending Dr: Ordering Physician: Olivia Borjas NP Date of Service: 09/21/24 Procedure(s): XR shoulder RT min 2V Accession Number(s): [id number] cc: Norma Gutierrez MD; Olivia Borjas NP [...] in OV> 09/21/242137 DD/ 36 TD/TT: 09/21/242136 Foot Caster: [facility] External Provider IMG XR PROCEDURES Edited Result - Final * Hepatitis C Viral RNA, Quantitative, Real-Time PCR (07/11/2024 9:26 AM EDT) Pathologist [facility] Hepatitis C Viral Load <15 NOT DETECTED NOT DETECTED IU/mL [facility] HCV Log PCR <1.18 NOT DETECTED NOT DETECTED Log IU/mL [facility] Comment:For additional infor osmin, please refer tohttp://education.[employer] [place]/faq/WVW10f8(This link is being provided for informational/educational purposes only.)THIS TEST WAS PERFORMED AT:[facility] [place] [phone] ANTONIO WICK MD Blood Venous blood specimen / Unknown 07/11/2024 9:26 AM EDT 07/11/2024 2:10 PM EDT Norma Gutierrez MD LAB BLOOD ORDERABLES Final Result [facility] [address] [place] [phone] [phone] * Lipid Panel, Standard (07/11/2024 9:26 AM EDT) Triglycerides 66 <150 mg/dL [facility] Comment:Desirable Triglyceri de: less than 150 mg/dLBorderline High Triglyceride 150-199 mg/dLHigh Triglyceride: 200-499 mg/dLVery High Triglyceride: greater than or equal to 5OO mg/dL Cholesterol 144 <200 mg/dL [facility] Comment:Desirable Cholestero l: less than 200 mg/dLBorderline High Cholesterol: 200-239 mg/dLHigh Cholesterol: greater than 239 mg/dL LDL Cholesterol Calculated 84 <100 mg/dL [facility] Comment:Desirable LDL: less than 100 mg/dLNear Optimal/Above Optimal LDL: 110- 129 mg/dLBorderline High LDL: 130-159 mg/dLHigh LDL: 160-189 mg/dLVery High LDL: greater than or equal to 190 mg/dL HDL Cholesterol 47 >40 mg/dL [facility] Comment:Desirable HDL: great er than 40 mg/dL Note: This HDL assay may give artificially low results in patients with liver disease. Blood Venous blood specimen / Unknown 07/11/2024 9:26 AM EDT 07/11/2024 2:10 PM EDT Norma Gutierrez MD LAB BLOOD ORDERABLES Final Result Performing Organization Address [facility] Co de Phone Number [facility] [address] [place] [address] [phone] * HM PAP/HPV (04/30/2022 2:50 PM EST) Historical Provider HEALTH MAINTENANCE Final Result * HIV AB/AG (02/17/2019 10:08 AM EST) Pathologist [facility] HIV AG/AB NONREACTIVE NR FOUNDATI ON LAB [...] of detection of this assay. The [employer] HIV Ag/Ab Combo assay result and supplemental assay results should be interpreted in conjunction with the patient's clinical presentation, history and other laboratory results. If the results are inconsistent with clinical evidence, additional testing is suggested to confirm the result. 02/17/2019 10:0 8 AM EST Norma Gutierrez MD HISTORICAL/NON ORDERABLE LA BS Final Result [facility] [address] [place] [address], from Last 3 Months or Most Recently Relevant to Health Maintenance Insurance , [address] [place] [address] [facility] Care Teams Speed Winder Relationship Specialty Start Date End Date Norma Gutierrez MD [address] [place] [phone] PCP - General Internal Medicine 02/29/16
--- OUTSIDE RECORDS SUMMARY | 2024-11-18 08:39 | XMS_ITS | Encounter Summary ---
Author Organization [employer] Address [address] [facility] 7t [place] [address] Care Team Providers Care Lock Up Worker Name Role Phone Norma Gutierrez MD Primary Care Provider [phone] Encounter Details Date Type Department Care Team ([facility] st Contact Info) Description 07/12/2024 Orders Only [facility] [address] [place], [place] [phone] Norma Gutierrez MD [address] [place] [address] Normocytic anemia (Primary Dx) Social History Tobacco [...] Upcoming Encounters Date Type Department Care Team ([facility] st Contact Info) Description 12/12/2024 9:00 AM EDT Office Visit [facility] [address] [place], [place] [phone] Norma Gutierrez MD [address] [place] [address] documented as of this encounter Procedures Procedure Name Priority Date/Time Associated Diagnosis Comments CBC WITH AUTO DIFFERENTIAL Routine 11/09/2024 10:02 AM EDT Normocytic anemia documented in this encounter Results * (ABNORMAL) CBC auto differential (11/09/2024 10:02 AM EDT) White Blood Count 5.1 4.8 - 10.8 X10*3/uL [facility] Red Blood Count 3.50(L) 4.20 - 5.50 X10*6/uL [facility] Hemoglobin 8.9(L) 12.0 - 16.0 g/dl [facility] Hematocrit 27.9(L) 37.0 - 47.0 % [facility] Mean Corpuscular Volume 79.7(L) 80.0 - 98.0 fL [facility] Mean Corpuscular Hemoglobin 25.4(L) 27.0 - 33.0 pg [facility] Mean Corpuscular HGB Conc 31.9 31.0 - 35.0 g/dl [facility] Red Cell Distribution Width 16.2(H) 11.0 - 16.0 % [facility] Platelet Count 335 160 - 400 X10*3/uL [facility] Mean Platelet Volume 11.2 9.4 - 12.3 fL [facility] Neutrophils Percent Auto 45.6 45 - 73 % [facility] Imm Gran Pct Auto 0.0 0.0 - 0.4 % [facility] Lymphocytes Percent Auto 39.6 20 - 40 % [facility] Monocytes Percent Auto 9.5 2 - 11 % [facility] Eosinophils Percent Auto 4.1(H) 0 - 4 % [facility] Basophils Percent Auto 1.2 0 - 2 % [facility] NRBC Pct Auto 0.0 0.0 - 0.2 /100WBC [facility] Neutrophils Absolute Auto 2.3 2.0 - 8.3 x10*3/uL [facility] Imm Gran Abs Auto 0.00 0.00 - 0.03 X10*3/uL [facility] Lymphocytes Absolute Auto 2.0 1.2 - 4.9 X10*3/uL [facility] Monocytes Absolute Auto 0.5 0.1 - 1.2 X10*3/uL [facility] Eosinophils Absolute Auto 0.2 0.0 - 0.4 X10*3/uL [facility] Basophils Absolute Auto 0.1 0.0 - 0.2 X10*3/uL [facility] NRBC Abs Auto 0.000 0.0 - 0.012 X10*3/uL [facility] Blood Venous blood specimen / Unknown 11/09/2024 10:02 AM EDT 11/09/2024 10:02 AM EDT us Norma Gutierrez MD LAB BLOOD ORDERABLES Final Result [facility] [address] [place] [address] [phone] documented in this encounter Visit Diagnoses Diagnosis Normocytic anemia- Primary Unspecified anemia documented in this encounter Additional Health Concerns Assessment Noted Time PHQ-9 Depression Total Score: 6 07/12/19 25 9:14 AM EDT documented as of this encounter Care Teams Lock Up Worker Relationship Specialty Start Date End Date Norma Gutierrez MD [address] [place] [address] PCP - General Internal Medicine 02/29/16 documented as of this encounter
--- OUTSIDE RECORDS SUMMARY | 2024-11-18 08:39 | XMS_ITS | Encounter Summary ---
Author Organization [employer] Address [address] [facility] 7t [place] [address] Care Team Providers Care Cupola Melter Helper Name Role Phone Norma Gutierrez MD Primary Care Provider [phone] Encounter Details Date Type Department Care Team ([facility] st Contact Info) Description 11/10/2024 Orders Only [facility] [address] [place], [place] [phone] Norma Gutierrez MD [address] [place] [address] Social History Tobacco Use Types Packs/Day Years [...] Upcoming Encounters Date Type Department Care Team ([facility] st Contact Info) Description 12/12/2024 9:00 AM EDT Office Visit [facility] [address] [place] [address] Norma Gutierrez MD [address] [place] [address] documented as of this encounter Visit Diagnoses Not on filedocumented in this encounter Additional Health Concerns Assessment Noted Time PHQ-9 Depression Total Score: 3 10/12/19 25 9:54 AM EDT documented as of this encounter Care Teams Cupola Melter Helper Relationship Specialty Start Date End Date Norma Gutierrez MD [address] [place] [address] PCP - General Internal Medicine 02/29/16 documented as of this encounter
--- OUTSIDE RECORDS SUMMARY | 2024-11-18 08:39 | XMS_ITS | Encounter Summary ---
Author Organization [employer] Address [address] [facility] [address] [place] [address] Care Team Providers Care Agronomist Name Role Phone Norma Gutierrez MD Primary Care Provider [phone] Encounter Details Date Type Department Care Team ([facility] st Contact Info) Description 05/24/2024 Orders Only [facility] [address] [place] [address] Provider, MD Moise Social History Tobacco Use [...] Description 12/12/2024 9:00 AM EDT Office Visit [facility] [address] [place] [address] Norma Gutierrez MD [address] [place] [address] documented as of this encounter Procedures Procedure Name Priority Date/Time Associated Diagnosis Comments HM PAP/HPV Routine 04/30/2022 2:50 PM EST documented in this encounter Results * HM PAP/HPV (04/30/2022 2:50 PM EST) Historical Provider HEALTH MAINTENANCE Final Result documented in this encounter Visit Diagnoses Not on filedocumented in this encounter Care Teams Agronomist Relationship Specialty Start Date End Date Norma Gutierrez MD [address] [place] [address] PCP - General Internal Medicine 02/29/16 documented as of this encounter
--- OUTSIDE RECORDS SUMMARY | 2024-11-18 08:39 | XMS_ITS | Encounter Summary ---
Author Organization [employer] Address [address] [facility] [address] [place] [address] Care Team Providers Care Field Nurse Case Manager Name Role Phone Norma Gutierrez MD Primary Care Provider [phone] Reason for Visit * Reason Onset Date Comments Reschedule 08/21/2023 Encounter Details Date Type Department Care Team ([facility] st Contact Info) Description 08/21/2023 Telephone [facility] [address] [place], [place] [phone] Norma Gutierrez MD [address] [place] [address] Reschedule Social History Tobacco Use Types Packs/Day [...] 08/24 PAP appointment. Please contact pt at [phone] documented in this encounter Plan of Treatment Upcoming Encounters Date Type Department Care Team ([facility] st Contact Info) Description 12/12/2024 9:00 AM EDT Office Visit [facility] [address] [place] [address] Norma Gutierrez MD [address] [place] [address] documented as of this encounter Visit Diagnoses Not on filedocumented in this encounter Care Teams Field Nurse Case Manager Relationship Specialty Start Date End Date Norma Gutierrez MD [address] [place] [address] PCP - General Internal Medicine 02/29/16 documented as of this encounter
--- OUTSIDE RECORDS SUMMARY | 2024-11-18 08:39 | XMS_ITS | Encounter Summary ---
Author Organization [employer] Address [address] [facility] [address] [place] [address] Care Team Providers Care Bin Worker Name Role Phone Norma Gutierrez MD Primary Care Provider [phone] Reason for Visit * Reason Onset Date Comments Medication Question 11/14/2024 Encounter Details Date Type Department Care Team ([facility] st Contact Info) Description 11/14/2024 Telephone [facility] [address] [place] [address] Norma Gutierrez MD [address] [place] [address] Medication Question Social History Tobacco Use Types Packs/Day Years [...] encounter Miscellaneous Notes * Telephone Encounter - Adama Cardoso - 11/14/2024 10:37 AM EDT Tc from pt requesting medication for an iron infusion. Pt states pcp sent medication, but has not receive them. Any questions contact pt at [phone] documented in this encounter Plan of Treatment Upcoming Encounters Date Type Department Care Team ([facility] st Contact Info) Description 12/12/2024 9:00 AM EDT Office Visit [facility] [address] [place] [address] Norma Gutierrez MD [address] [place] [address] documented as of this encounter Visit Diagnoses Diagnosis Normocytic anemia Unspecified anemia documented in this encounter Additional Health Concerns Assessment Noted Time PHQ-9 Depression Total Score: 3 10/12/19 25 9:54 AM EDT documented as of this encounter Care Teams Bin Worker Relationship Specialty Start Date End Date Norma Gutierrez MD [address] [place] [address] PCP - General Internal Medicine 02/29/16 documented as of this encounter
--- OUTSIDE RECORDS SUMMARY | 2024-11-18 08:39 | XMS_ITS | Encounter Summary ---
Author Organization [employer] Address [address] [facility] 7[address] [place] [address] Care Team Providers Care Pricing Clerk Name Role Phone Norma Gutierrez MD Primary Care Provider [phone] Encounter Details Date Type Department Care Team ([facility] st Contact Info) Description 10/12/2024 Orders Only [facility] [address] [place], [place] [phone] Norma Gutierrez MD [address] [place] [address] Class 1 obesity due to excess calories [...] Upcoming Encounters Date Type Department Care Team ([facility] st Contact Info) Description 12/12/2024 9:00 AM EDT Office Visit [facility] [address] [place] [address] Norma Gutierrez MD [address] [place] [address] documented as of this encounter Visit Diagnoses Diagnosis Class 1 obesity due to excess calories with serious comorbidity and body mass index (BMI) of 30.0 to 30.9 in adult- Primary documented in this encounter Additional Health Concerns Assessment Noted Time PHQ-9 Depression Total Score: 3 10/12/19 25 9:54 AM EDT documented as of this encounter Care Teams Pricing Clerk Relationship Specialty Start Date End Date Norma Gutierrez MD [address] [place] [address] PCP - General Internal Medicine 02/29/16 documented as of this encounter
--- OUTSIDE RECORDS SUMMARY | 2024-11-18 08:39 | XMS_ITS | Clinical Summary ---
Author Organization [place] [address] Isak mendoza Formerly [facility] Building Address [address], [place] Phone Care Team Providers Care Trial Mgr Name Role Phone Norma Gutierrez MD Primary Care Provider [phone] Allergies No known active allergies Medications albuterol HFA (ProAir HFA) 90 mcg/actuation inhaler Inhale 2 Puffs into the lungs every 6 hours as needed for Shortness of Breath. 05/27/19 18 Active norethindrone (AYGESTIN) 5 mg tablet Take 2 tablets (10 mg total) by mouth 1 (one) time each day. 60 each 1 11/16/19 25 025 Active norethindrone (LEWIS,SOLANGE,HEA THER,MICRONOR) 0.35 mg tabletIndications :Encounter for surveillance of contraceptive pills TAKE 1 TABLET BY MOUTH 1 TIME EACH DAY. 28 tablet 12 05/11/19 25 025 Discontinued Active Problems Problem Noted Date Diagnosed Date [...] Encounters Date Type Department Care Team Description 11/15/2024 3:20 PM EDT Office Visit Obstetrics and Gynecology - [place] [id number] [place] [address] Maribel Frey PA Abnormal uterine bleeding (AUB) (Primary Dx); Blood loss anemia 11/14/2024 Telephone Obstetrics and Gynecology - [address] [address] Mirna Booth CNM 11/13/2024 10:36 PM EDT - 11/13/2024 11:04 PM EDT Emergency [facility] Emergency [address] [place] [address] Jocelyne Darby MD Muhoozi, Bannet, MD Episode of heavy vaginal bleeding (Primary Dx) Discharge Disposition: Home or Self Care 10/23/2024 3:03 PM EDT - 10/23/2024 6:49 PM EDT Emergency [facility] Emergency [address] [place] [address] Kannan Francis MD Orthostatic hypotension (Primary Dx) [...] cyst removal OVARIAN CYST REMOVAL Right PROCEDURE: NE OVARIAN CYSTECTOMY UNI/BI OTHER SURGICAL HISTORY 2019 [...] 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 Delivery Location:[facility] 2022 Term 39w 5d 8h 50m 3175 g (112 oz) M Vag-S pont Epidur al N Livin g Xu Pugh MD Delivery Location:[facility] Last Filed Vital Signs Vital Sign Reading Time Taken Comments Blood Pressure 113/85 11/15/2024 3:29 PM EDT Pulse 87 11/15/2024 3:29 PM EDT Temperature 36.7 C (98.1 F) 11/13/2024 10:19 PM EDT Respiratory Rate 14 11/15/2024 3:29 PM EDT Oxygen Saturation 99% 11/13/2024 10:19 PM EDT Inhaled Oxygen Concentration - - Weight 77.4 kg (170 lb 9.6 oz) 11/15/2024 3:29 P M EDT Height 155 cm (5' 1.02 ) 11/15/2024 3:29 PM EDT Body Mass Index 32.21 11/15/2024 3:29 PM EDT Plan of Treatment Upcoming Encounters Date Type Department Care Team (Late st Contact Info) Description 11/21/2024 6:30 PM EDT Appointment Radiology Department [address] [address] Health Maintenance Due Date Last Done Comments Hepatitis B Vaccines (1 of 3 - 19+ 3-dose series) 2009 Pneumococcal Vaccine: Pediatrics (0 to 5 Years) and At-Risk Patients (6 to 49 Years) (1 of 2 - PCV) 2009 Social Influencers of Health Screening 02/02/2022 Depression Screening 03/02/2024 COVID-19 Vaccine ( - 2024- season) 2024 07/12/2021, 01/18/2021, 12/28/2020 Influenza Vaccine (#1) 2024 4, 12/11/2020, 01/03/2019, Additional history exists Cervical Cancer Screening: HPV 05/01/2027 04/30/2022 Cholesterol Screening (Lipid Panel) 07/11/2029 07/11/2024 DTaP,Tdap,and Td Vaccines (5 - Td or Tdap) 09/03/2032 09/03/2022, 07/22/2017, 06/25/2010, Additional history exists RSV Immunization Adult Patients (1 - 1-dose 75+ series) 2065 Meningococcal ACWY Vaccine Aged Out 12/19/2004 N [...] AUTO DIFFERENTIAL STAT 11/13/2024 10:27 PM EDT BASIC METABOLIC PANEL STAT 11/13/2024 10:27 PM EDT CBC AND DIFFERENTIAL STAT 11/13/2024 10:27 PM EDT ECG ANNOTATED 10/24/2024 ECG 12-LEAD STAT 10/23/2024 [...] Recently Relevant to Health Maintenance Results * POC , urine manually resulted (11/13/2024 10:28 PM EDT) HCG, Ur POC Negative Negative POC hCG Int QC Pass? Yes Yes Urine Urine specimen obtained by clean catch procedure / Unknown 11/13/2024 10:28 PM EDT Tyrel Segundo MD POINT OF CARE TEST ENTER/EDIT ORDERABLES Final Result * (ABNORMAL) CBC auto differential (11/13/2024 10:27 PM EDT) Only the most recent of2 resultswithin the time period is included. Pathologist [facility] WBC 8.0 4.8 - 10.8 K/mcL LAB HEMETOLOGY METHOD 11/13/2024 10:39 PM EDT [facility] RBC 3.70(L) 3.80 - 4.80 M/mcL LAB HEMETOLOGY METHOD 11/13/2024 10:39 PM EDT [facility] Hemoglobin 8.9(L) 11.5 - 16.0 g/dL LAB HEMETOLOGY METHOD 11/13/2024 10:39 PM EDT [facility] Hematocrit 29.5(L) 35.0 - 47.0 % LAB HEMETOLOGY METHOD 11/13/2024 10:39 PM EDT [facility] MCV 80.8 79.0 - 98.0 FL LAB HEMETOLOGY METHOD [facility] MCH 24.4(L) 27.0 - 32.0 pcg LAB HEMETOLOGY METHOD 11/13/2024 10:39 PM [facility] MCHC 30.2(L) 32.0 - 37.0 g/dL LAB HEMETOLOGY METHOD 11/13/2024 10:39 PM [facility] RDW 15.7(H) 11.0 - 15.0 % LAB HEMETOLOGY METHOD 11/13/2024 10:39 PM [facility] Platelets 329 130 - 400 K/mcL LAB HEMETOLOGY METHOD 11/13/2024 10:39 PM [facility] MPV 10.5 7.0 - 11.0 FL LAB HEMETOLOGY METHOD 11/13/2024 10:39 PM [facility] NRBC 0.0 <1.0 % LAB HEMETOLOGY METHOD 11/13/2024 10:39 PM [facility] NRBC Absolute 0.00 <0.10 K/mcL LAB HEMETOLOGY METHOD 11/13/2024 10:39 PM [facility] Neutrophils Relative 51.3 % LAB HEMETOLOGY METHOD 11/13/2024 10:39 PM [facility] Lymphocytes Relative 34.7 % LAB HEMETOLOGY METHOD 11/13/2024 10:39 PM [facility] Monocytes Relative 9.3 % LAB HEMETOLOGY METHOD 11/13/2024 10:39 PM [facility] Eosinophils Relative 3.5 % LAB HEMETOLOGY METHOD 11/13/2024 10:39 PM [facility] Basophils Relative 1.0 % LAB HEMETOLOGY METHOD 11/13/2024 10:39 PM EDT [facility] Immature Granulocytes Relative 0.2 % LAB HEMETOLOGY METHOD 11/13/2024 10:39 PM EDT [facility] Neutrophils Absolute 4.11 1.50 - 7.00 K/mcL LAB HEMETOLOGY METHOD 11/13[facility]2024 10:39 [facility] Lymphocytes Absolute 2.79 1.00 - 5.00 K/mcL LAB HEMETOLOGY METHOD 11/13/2024 10:39 PM EDT [facility] Monocytes Absolute 0.75 0.20 - 1.00 K/mcL LAB HEMETOLOGY METHOD 11/13/2024 10:39 PM [facility] Eosinophils Absolute 0.28 0.00 - 0.50 K/mcL LAB HEMETOLOGY METHOD 11/13/2024 10:39 PM [facility] Basophils Absolute 0.08 0.00 - 0.20 K/mcL LAB HEMETOLOGY METHOD 11/13/2024 10:39 PM [facility] Immature Granulocytes Absolute 0.02 0.00 - 0.03 K/mcL LAB HEMETOLOGY METHOD 11/13/2024 10:39 PM [facility] Blood Venous blood specimen / Unknown Venipuncture / Unknown 11/13/2024 10:27 PM EDT 11/13/2024 10:31 PM EDT us Tyrel Segundo MD LAB BLOOD ORDERABLES Final Res ult [facility] [address] [place] [address], * (ABNORMAL) Basic metabolic panel (11/13/2024 10:27 PM EDT) Sodium 139 133 - 145 mmol/L LAB CHEMISTRY METHOD 11/13/2024 10:53 PM EDT [facility] Potassium 3.3(L) 3.5 - 5.5 mmol/L LAB CHEMISTRY METHOD 11/13/2024 10:53 PM [facility] Chloride 110 96 - 110 mmol/L LAB CHEMISTRY METHOD 11/13/2024 10:53 PM [facility] CO2 23 21 - 32 mmol/L LAB CHEMISTRY METHOD 11/13/2024 10:53 PM [facility] Anion Gap 6 3 - 11 LAB CHEMISTRY METHOD 11/13/2024 10:53 PM T [facility] Glucose 88 70 - 100 mg/dL LAB CHEMISTRY METHOD 11/13/2024 10:53 PM [facility] BUN 9 5 - 25 mg/dL LAB CHEMISTRY METHOD 11/13/2024 10:53 PM [facility] Creatinine 0.87 0.50 - 1.10 mg/dL LAB CHEMISTRY METHOD 11/13/2024 10:53 PM [facility] eGFR 90 >=60 mL/min/1. 73m2 LAB CHEMISTRY METHOD 11/13/2024 10:53 PM [facility] Comment:Calculation based on the Chronic Kidney Disease Epidemiology Collaboration (CKD-EPI) equation refit without adjustment for race. BUN/Creatinine Ratio 10.3 LAB CHEMISTRY METHOD 11/13/2024 10:53 PM [facility] Calcium 8.7 8.5 - 10.5 mg/dL LAB CHEMISTRY METHOD 11/13/2024 10:53 PM T [facility] Blood Venous blood specimen / Unknown Venipuncture / Unknown 11/13/2024 10:27 PM EDT 11/13/2024 10:31 PM EDT us Tyrel Segundo MD LAB BLOOD ORDERABLES Final Res ult [facility] [address] [place] [address], * ECG-Annotated (10/24/2024) Provider Ty COBIAN ECG ORDERABLES Final Result * ECG 12 lead (10/23/2024 3:37 PM EDT) Pathologist [facility] Ventricular Rate ECG 87 BPM GEMUSE Atrial Rate 87 BPM GEMUSE P-R Interval 150 ms GEMUSE QRS Duration 78 ms GEMUSE Q-T Interval 360 ms GEMUSE QTc 433 ms GEMUSE P Wave [place] 66 degrees GEMUSE R [place] 60 degrees GEMUSE T [place] 60 degrees GEMUSE ECG Interpretation Normal sinus rhythm Nonspecific T wave abnormality Abnormal ECG When compared with ECG of 05-DEC-2020 18:19, No significant change was found Confirmed by JOSE C RESENDEZ ([id number]) on 10/25/2024 7:59:54 AM GEMUSE 10/23/2024 3:37 PM EDT 10/25/2024 7:59 AM EDT Kannan Francis MD ECG ORDERABLES Final Result Performing Organization Address [facility] de Phone Number GEMUSE * Troponin I high sensitivity (10/23/2024 3:32 PM EDT) [facility] High Sensitivity Troponin I <3 <=54 ng/L LAB CHEMISTRY METHOD 10/23/2024 4:12 PM EDT [facility] Blood Venous blood specimen / Unknown Venipuncture / Unknown 10/23/2024 3:32 PM EDT 10/23/2024 3:42 PM EDT Narrative [facility] - 10/23/2024 4:12 PM EDT High levels of biotin in samples may falsely decrease hsTroponin values. Use caution when interpreting hsTroponin results in patients taking biotin who exhibit renal impairment (eGFR <60) or in patients taking more than 20 mg/day of biotin. Kannan Francis MD LAB BLOOD ORDERABLES Final R esult Performing Organization Address City/[facility] Co de Phone Number [facility] [address] [place] [address], [place] [phone] * D-Dimer (Quantitative) (10/23/2024 3:32 PM EDT) [facility] D-Dimer, Quant (D-DU) 201 <=230 ng/mL DDU LAB COAGULATION METHOD 10/23/2024 3:53 PM EDT [facility] Blood Venous blood specimen / Unknown Venipuncture / Unknown 10/23/2024 3:32 PM EDT 10/23/2024 3:42 PM EDT Narrative [facility] - 10/23/2024 3:53 PM EDT D-Dimer <230 ng/mL (D-Dimer units) is the threshold for exclusion of DVT/PE. D-Dimer may be elevated in: Critically ill, severely infected, trauma patients, DIC, acute CVA, acute WA, unstable angina, AF, old age, , and smoking. D-Dimer may be decreased with: Initiation of heparin therapy and oral anticoagulants. Kannan Francis MD LAB BLOOD ORDERABLES Final R esult Performing Organization Address [facility] Co de Phone Number [facility] [address] [place] [address], [place] [phone] * hCG, serum, qualitative (10/23/2024 3:26 PM EDT) [facility] hCG Qual Negative Negative 10/23/2024 4:43 PM EDT [facility] Blood Venous blood specimen / Unknown Venipuncture / Unknown 10/23/2024 3:26 PM EDT 10/23/2024 3:43 PM EDT Judie CHEEMA LAB BLOOD ORDERABLES Final R esult Performing Organization Address City/[facility]/ZIP Co de Phone Number [facility] [address] [place] [address], [place] [phone] * Magnesium (10/23/2024 3:26 PM EDT) [facility] Magnesium 2.1 1.9 - 2.6 mg/dL LAB CHEMISTRY METHOD 10/23/2024 4:08 PM EDT [facility] Blood Venous blood specimen / Unknown Venipuncture / Unknown 10/23/2024 3:26 PM EDT 10/23/2024 3:43 PM EDT us Kannan Francis MD LAB BLOOD ORDERABLES Final R esult [facility] [address] [place] [address], [place] [phone] * (ABNORMAL) Comprehensive Metabolic Panel (CMP) (10/23/2024 3:26 PM EDT) [facility] Sodium 139 133 - 145 mmol/L LAB CHEMISTRY METHOD 10/23/2024 4:08 PM [facility] Potassium 3.9 3.5 - 5.5 mmol/L LAB CHEMISTRY METHOD 10/23/2024 4:08 PM [facility] Chloride 111(H) 96 - 110 mmol/L LAB CHEMISTRY METHOD 10/23/2024 4:08 PM [facility] CO2 22 21 - 32 mmol/L LAB CHEMISTRY METHOD 10/23/2024 4:08 PM [facility] Anion Gap 6 3 - 11 LAB CHEMISTRY METHOD 10/23/2024 4:08 PM [facility] Glucose 83 70 - 100 mg/dL LAB CHEMISTRY METHOD 10/23/2024 4:08 PM [facility] BUN 13 5 - 25 mg/dL LAB CHEMISTRY METHOD 10/23/2024 4:08 PM [facility] Creatinine 0.92 0.50 - 1.10 mg/dL LAB CHEMISTRY METHOD 10/23/2024 4:08 PM [facility] eGFR 84 >=60 mL/min/1. 73m2 LAB CHEMISTRY METHOD 10/23/2024 4:08 PM [facility] Comment:Calculation based on the Chronic Kidney Disease Epidemiology Collaboration (CKD-EPI) equation refit without adjustment for race. BUN/Creatinine Ratio 14.1 LAB CHEMISTRY METHOD 10/23/2024 4:08 PM [facility] Calcium 8.5 8.5 - 10.5 mg/dL LAB CHEMISTRY METHOD 10/23/2024 4:08 PM [facility] AST (SGOT) 14 10 - 42 unit/L LAB CHEMISTRY METHOD 10/23/2024 4:08 PM [facility] ALT (SGPT) 13 10 - 60 unit/L LAB CHEMISTRY METHOD 10/23/2024 4:08 PM [facility] Alkaline Phosphatase 75 42 - 121 unit/L LAB CHEMISTRY METHOD 10/23/2024 4:08 PM [facility] Total Protein 6.9 6.0 - 8.0 g/dL LAB CHEMISTRY METHOD 10/23/2024 4:08 PM [facility] Albumin 3.9 3.2 - 5.0 g/dL LAB CHEMISTRY METHOD 10/23/2024 4:08 PM [facility] Total Bilirubin 0.4 0.0 - 1.4 mg/dL LAB CHEMISTRY METHOD 10/23/2024 4:08 PM [facility] Blood Venous blood specimen / Unknown Venipuncture / Unknown 10/23/2024 3:26 PM EDT 10/23/2024 3:43 PM EDT us Kannan Francis MD LAB BLOOD ORDERABLES Final R esult [facility] [address] [place] [address], * Cervical Cancer Screening: HPV (04/30/2022) Cervical Cancer Screening: HPV Negative, Abstracted Historical Provider HEALTH MAINTENANCE Final Result * HIV Screening (04/15/2022) HIV Screening Abstracted Historical Provider HEALTH MAINTENANCE Final Result * Hepatitis C Screening (04/15/2022) Hepatitis C Screening Abstracted Historical Provider HEALTH MAINTENANCE Final Result from Last 3 Months or Most Recently Relevant to Health Maintenance Insurance [place] Member Subscriber Plan / Payer (Ef fective 2024-Present) Name:OMID LUNDY Relation to Subscriber:Self Name:Omid Lundy Payer ID:[id number] Group ID:Not on file Type:Not on file Address: [facility] ATTN:CLAIMS [address] [place] [address] [place] [address] Care Teams Trial Mgr Relationship Specialty Start Date End Date Norma Gutierrez MD [address], [place] PCP - General 10/07/22
--- OUTSIDE RECORDS SUMMARY | 2024-11-18 08:39 | XMS_ITS | Encounter Summary ---
Author Organization [employer] Address [address] [facility] [address] [place] [address] Care Team Providers Care Appointment Setter Name Role Phone Norma Gutierrez MD Primary Care Provider [phone] Encounter Details Date Type Department Care Team ([facility] st Contact Info) Description 10/25/2024 Orders Only [facility] [address] [place] [address] Provider, MD Moise Social History Tobacco Use [...] Description 12/12/2024 9:00 AM EDT Office Visit [facility] [address] [place] [address] Norma Gutierrez MD [address] [place] [address] documented as of this encounter Procedures Procedure [...] documented as of this encounter Care Teams Appointment Setter Relationship Specialty Start Date End Date Norma Gutierrez MD [address] [place] [address] PCP - General Internal Medicine 02/29/16 documented as of this encounter
--- OUTSIDE RECORDS SUMMARY | 2024-11-18 08:39 | XMS_ITS | Encounter Summary ---
Author Organization [facility] Address [address] [place] [address] Care Team Providers Care Surgical Services Asst Name Role Phone Norma Gutierrez MD Primary Care Provider [phone] Encounter Details Date Type Department Care Team ([facility] Contact Info) Description 11/14/2024 Telephone Obstetrics and Gynecology - [address] [phone] Mirna Booth, [facility] [address] [place], [place] Social History Tobacco Use Types Packs/Day Years [...] on file documented as of this encounter Plan of Treatment Upcoming Encounters Date Type Department Care Team ([facility] Contact Info) Description 11/21/2024 6:30 PM EDT Appointment Radiology Department - [address] [phone] documented as of this encounter Visit Diagnoses Not on filedocumented in this encounter Care Teams Surgical Services Asst Relationship Specialty Start Date End Date Norma Gutierrez MD [address] [place] [address] PCP - General 10/07/22 documented as of this encounter
== END ==
LOC: HO.CARD 08:12
PROVIDERS: PCP Internal Medicine; Visit Provider Internal Medicine
DX: R55 Syncope and collapse (principal)
CPT/HCPCS: 93225

== ENCOUNTER → 2024-11-18 08:25 | Outpatient (BNV) | payer OTHER, MEDICAID, SELFPAY | PROVIDERS: PCP Internal Medicine; Visit Provider Internal Medicine | DX: I49.49 Other premature depolarization (principal); I49.3 Ventricular premature depolarization | CPT/HCPCS: 93227 ==

== ENCOUNTER 2024-12-02 08:34 | Outpatient (AMB) | payer OTHER, MEDICAID, SELFPAY ==
--- NOTE | 2024-12-02 08:46 | MHC.OFFVIS ---
Vital Signs 12/02/24 08:52 Height 5 ft 3 in Weight 170 lb BMI 30.1 Intake Visit Reasons: ED f/u-Rt shoulder tendonitis Intake Note: Omid is a 34 year old right hand dominant female who presents today for a emergency room follow up. She was seen at [facility] ED on 09/21/24 with complaints of right shoulder pain that has been increasingly getting worse. Denies injury. She was given a sling in the ED. Today patient reports her pain presented a couple of weeks prior to her ER visit, she attempted hot patches and tiger balm with no relief. Her pain has improved after she was given an injection at the ER. At times her ROM is bothersome. Allergies No Known Allergies (No Known Allergies*) Allergy (Verified 12/02/24 09:02) Medication List - Last Reconciled 12/02/24 by Gato Barlow PA-C bupropion HCl 100 mg PO DAILY norethindrone ac-eth estradiol 1-5 mg-mcg 2 tabs PO DAILY phentermine 15 mg PO DAILY sennosides (senna) 17.2 mg (2 x 8.6 mg) PO BEDTIME PRN HPI HPI ED f/u-Rt shoulder tendonitis: Details: 34-year-old female presents to the office today for pain in the right shoulder. She was seen in the emergency department on 09/21/2024 for right shoulder pain. She denies injury, she states she woke up 1 morning with severe shoulder pain and was seen in the emergency department where she was given a diagnostic subacromial injection with just lidocaine. She did have some relief with the injection but notes shortly after she developed vaginal bleeding. She does have a history of uterine fibroids and was seen by her environmental services coordinator who has been treating her for this. She is on iron supplementation/infusions and was advised to not have further injections in the shoulder. Patient states she continues to have limitations with certain activities. No other treatment to date. [facility] Medical History Anxiety Asthma Surgical History History of repair of hiatal hernia History of sleeve gastrectomy H/O ovarian cystectomy S/P lumpectomy, right breast History of laparoscopic appendectomy Family History (Updated 11/18/24 @ 13:25 by Osmin Drake) Father No problems noted. Mother HTN (hypertension) Brother No problems noted. Brother No problems noted. Sister No problems noted. Daughter No problems noted. Maternal Grandfather Stomach cancer Maternal Grandmother Throat cancer Social History (Updated 12/02/24 @ 08:52 by Chantelle Sigala [facility]) Household Members: Spouse and Children Alcohol intake: never Patient Tobacco Use Status: Never used Tobacco service: No Current occupational status: employed and student Current occupation: maintenance job titles, right hand dominant Review of Systems Const All systems reviewed & are unremarkable except as noted in HPI and below Physical Exam Vital Signs: BMI result Body Mass Index 30.1 Const General: cooperative and no acute distress Orientation/consciousness: patient oriented x3 Resp Effort & Inspection: normal respiratory effort and able to speak in complete sentences Cardio Peripheral pulses: Peripheral pulses 2+ throughout Neuro General: patient oriented x3 Extrem Other: Right shoulder is normal to inspection. She has full range of motion in all planes. She has discomfort with activation of her rotator cuff with empty can and lift-off. Mild discomfort over the distal end of the acromion. Neurovascularly intact. Results Reviewed Results Reviewed: X-rays of the right shoulder obtained in the emergency department show evidence of calcific tendonitis Assessment & Plan Assessment & Plan (1) Calcific tendonitis of right shoulder: Code(s): M75.31 - Calcific tendinitis of right shoulder Category: Medical Plan: We discussed options today which includes MRI imaging of the right shoulder to further evaluate the extent of her calcium deposit and involvement with the rotator cuff. I also placed an order for physical therapy to work on rotator cuff and periscapular stabilization techniques. I did send her a prescription for naproxen to take twice a day for 2 weeks and she will follow up with her environmental services coordinator to ensure that is okay given her need for iron supplementation and risk of bleeding. Once the MRI is completed I will contact her to discuss the next step in her treatment. In the meantime she will avoid overhead reaching lifting pushing pulling or carrying for the next 3-4 weeks. Orders: Orders MR shoulder RT wo con Today M75.81 - Other shoulder lesions, right shoulder PT Evaluation and Treatment Today M75.31 - Calcific tendinitis of right shoulder Medications: New naproxen 500 mg PO BID 60 tabs 3RF 30 days S93.409A - Sprain of unspecified ligament of unspecified ankle, initial encounter Coding Level of Care Code New Pt Level 3 (10129) Complex EM visit Add On G2211 Diagnoses Calcific tendonitis of right shoulder M75.31
[2024-12-02 08:52] VITALS: BMI 30.1
--- OUTSIDE RECORDS SUMMARY | 2024-12-02 08:55 | XMS_ITS | Encounter Summary ---
Author Organization [employer] Address [address] [facility] 7[address] [place] [address] Care Team Providers Care Low Altitude Air Defense Gunner Name Role Phone Norma Gutierrez MD Primary Care Provider [phone] Encounter Details Date Type Department Care Team ([facility] st Contact Info) Description 07/12/2024 Orders Only [facility]EDS [address] [place], [place] [phone] Norma Gutierrez MD [address] [place] [address] Normocytic anemia (Primary Dx) Social History Tobacco [...] Upcoming Encounters Date Type Department Care Team ([facility] st Contact Info) Description 12/08/2024 9:00 AM EDT Office Visit [facility] MED [facility]ED[facility] [address] [place], [place] [phone] Norma Gutierrez MD [address] [place] [address] documented as of this encounter Procedures Procedure Name Priority Date/Time Associated Diagnosis Comments CBC WITH AUTO DIFFERENTIAL Routine 11/09/2024 10:02 AM EDT Normocytic anemia documented in this encounter Results * (ABNORMAL) CBC auto differential (11/09/2024 10:02 AM EDT) White Blood Count 5.1 4.8 - 10.8 X10*3/uL [facility] Red Blood Count 3.50(L) 4.20 - 5.50 X10*6/uL [facility] Hemoglobin 8.9(L) 12.0 - 16.0 g/dl [facility] Hematocrit 27.9(L) 37.0 - 47.0 % [facility] Mean Corpuscular Volume 79.7(L) 80.0 - 98.0 fL [facility] Mean Corpuscular Hemoglobin 25.4(L) 27.0 - 33.0 pg [facility] Mean Corpuscular HGB Conc 31.9 31.0 - 35.0 g/dl [facility] Red Cell Distribution Width 16.2(H) 11.0 - 16.0 % [facility] Platelet Count 335 160 - 400 X10*3/uL [facility] Mean Platelet Volume 11.2 9.4 - 12.3 fL [facility] Neutrophils Percent Auto 45.6 45 - 73 % [facility] Imm Gran Pct Auto 0.0 0.0 - 0.4 % [facility] Lymphocytes Percent Auto 39.6 20 - 40 % [facility] Monocytes Percent Auto 9.5 2 - 11 % [facility] Eosinophils Percent Auto 4.1(H) 0 - 4 % [facility] Basophils Percent Auto 1.2 0 - 2 % [facility] NRBC Pct Auto 0.0 0.0 - 0.2 /100WBC [facility] Neutrophils Absolute Auto 2.3 2.0 - 8.3 x10*3/uL [facility] Imm Gran Abs Auto 0.00 0.00 - 0.03 X10*3/uL [facility] Lymphocytes Absolute Auto 2.0 1.2 - 4.9 X10*3/uL [facility] Monocytes Absolute Auto 0.5 0.1 - 1.2 X10*3/uL [facility] Eosinophils Absolute Auto 0.2 0.0 - 0.4 X10*3/uL [facility] Basophils Absolute Auto 0.1 0.0 - 0.2 X10*3/uL [facility] NRBC Abs Auto 0.000 0.0 - 0.012 X10*3/uL [facility] Blood Venous blood specimen / Unknown 11/09/2024 10:02 AM EDT 11/09/2024 10:02 AM EDT us Norma Gutierrez MD LAB BLOOD ORDERABLES Final Result [facility] [address] [place] [address] [phone] documented in this encounter Visit Diagnoses Diagnosis Normocytic anemia- Primary Unspecified anemia documented in this encounter Additional Health Concerns Assessment Noted Time PHQ-9 Depression Total Score: 6 07/12/19 25 9:14 AM EDT documented as of this encounter Care Teams Low Altitude Air Defense Gunner Relationship Specialty Start Date End Date Norma Gutierrez MD [address] [place] [address] PCP - General Internal Medicine 02/29/16 documented as of this encounter
--- OUTSIDE RECORDS SUMMARY | 2024-12-02 08:55 | XMS_ITS | Encounter Summary ---
Author Organization [employer] Address [address] [facility] [address] [place] [address] Care Team Providers Care Integration Engineer Name Role Phone Norma Gutierrez MD Primary Care Provider [phone] Encounter Details Date Type Department Care Team ([facility] st Contact Info) Description 10/12/2024 Orders Only [facility] MED & PEDS [address] [place], [place] [phone] Norma Gutierrez MD [address] [place] [address] Class 1 obesity due to excess calories [...] Care Team (Late st Contact Info) Description 12/08/2024 9:00 AM EDT Office Visit [facility] [address] [place] [address] Norma Gutierrez MD [address] [place] [address] documented as of this encounter Visit Diagnoses Diagnosis Class 1 obesity due to excess calories with serious comorbidity and body mass index (BMI) of 30.0 to 30.9 in adult- Primary documented in this encounter Additional Health Concerns Assessment Noted Time PHQ-9 Depression Total Score: 3 10/12/19 25 9:54 AM EDT documented as of this encounter Care Teams Integration Engineer Relationship Specialty Start Date End Date Norma Gutierrez MD [address] [place] [address] PCP - General Internal Medicine 02/29/16 documented as of this encounter
--- OUTSIDE RECORDS SUMMARY | 2024-12-02 08:55 | XMS_ITS | Clinical Summary ---
Author Organization [place] [address] [facility] Address [address] [place], [place] Phone Care Team Providers Care Tea Tree Farm Worker Name Role Phone Norma Gutierrez MD Primary Care Provider [phone] Allergies No known active allergies Medications albuterol [...] Active Problems Problem Noted Date Diagnosed Date Subserous leiomyoma of uterus 11/24/2024 Vulvar irritation 06/12/2023 Overview (02/04/2024): Last Assessment [...] Encounters Date Type Department Care Team Description 11/21/2024 6:11 PM EDT - 11/21/2024 11:59 PM EDT Hospital Encounter Radiology Department - [address] [phone] Abnormal uterine bleeding (AUB); Blood loss anemia Discharge Disposition: Home or Self Care 11/15/2024 3:20 PM EDT Office Visit Obstetrics and Gynecology - [address] [phone] Maribel Frey PA Abnormal uterine bleeding (AUB) (Primary Dx); Blood loss anemia 11/14/2024 Telephone Obstetrics and Gynecology - [address] [phone] Mirna Booth CNM 11/13/2024 10:36 PM EDT - 11/13/2024 11:04 PM EDT Emergency Emergency [address] [place] [address] Jocelyne Darby MD Muhoozi, Bannet, MD Episode of heavy vaginal bleeding (Primary Dx) Discharge Disposition: Home or Self Care 10/23/2024 3:03 PM EDT - 10/23/2024 6:49 PM EDT Emergency Emergency [address] [place] [address] Kannan Francis MD Orthostatic hypotension (Primary Dx) Discharge Disposition: Home or Self Care from Last 3 Months Immunizations Immunization Administration Dates Next Due Influenza trivalent, 0.5mL, [...] cyst removal OVARIAN CYST REMOVAL Right PROCEDURE: CT OVARIAN CYSTECTOMY UNI/BI OTHER SURGICAL HISTORY 2019 [...] Epidur al N Livin g 8 9 LEANNE VillarealM 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 Delivery Location:[facility] 2022 Term 39w 5d 8h 50m 3175 g (112 oz) M Vag-S pont Epidur al N Livin g Xu Pugh MD Delivery Location:[facility] Last Filed Vital Signs Vital Sign [...] 11/15/2024 3:29 PM EDT Plan of Treatment Health Maintenance [...] Procedure Name Priority Date/Time Associated Diagnosis Comments US DUPLEX ABDOMEN/PELVIS/RETRO COMPLETE Routine 11/21/2024 7:24 PM EDT Abnormal uterine bleeding (AUB) Blood loss anemia US PELVIS NON OB COMPLETE W TRANSVAGINAL Routine 11/21/2024 7:24 PM EDT Abnormal uterine bleeding (AUB) Blood loss anemia POC , URINE DIAGNOSTIC STAT 11/13/2024 10:28 [...] AND DIFFERENTIAL STAT 10/23/2024 3:26 PM EDT HPV Routine 04/30/2022 HEPATITIS C SCREENING Routine 04/15/2022 HIV SCREENING Routine 04/15/2022 from Last 3 Months or Most Recently Relevant to Health Maintenance Results * US Pelvis Non OB Complete w Transvaginal (11/21/2024 7:24 PM EDT) Anatomical Region Laterality Modality Body, Pelvis Ultrasound 11/21/2024 8:19 PM EDT Impressions 11/21/2024 8:23 PM EDT No endometrial abnormality. 3.0 cm subserosal uterine fibroid. -------- FINAL REPORT -------- Dictated By: Bere Singh Dictated Date: 11/21/2024 20:19 ET Assigned Physician: Bere Singh Reviewed and Electronically Signed By: Bere Singh Signed Date: 11/21/2024 20:23 ET Workstation ID: [id number] Transcribed By: Self Edit Transcribed Date: 11/21/2024 20:19 ET Narrative 11/21/2024 8:23 PM EDT PELVIC ULTRASOUND HISTORY: Abnormal uterine bleeding causing anemia. COMPARISON: None FINDINGS: Both transabdominal and endovaginal pelvic ultrasound were performed. Duplex Doppler scanning of the ovaries also performed. Uterus: 9.9 x 5.5 x 5.0 cm in size. 3.0 x 2.9 x 2.1 cm heterogeneous hypoechoic lesion arising from the right uterine fundus likely represents a subserosal fibroid. Endometrium: 0.4 cm in thickness which is within normal limits. No focal abnormality identified. Right ovary: Normal in size measuring 3.4 x 2.6 x 1.6 cm. It contains a 1.8 cm dominant follicle. Normal arterial and venous waveforms on spectral Doppler analysis. Left ovary: Normal in size measuring 3.6 x 3.0 x 2.4 cm. It contains a 2.7 x 2.6 x 2.0 cm cyst with a daughter cyst compatible with a physiologic cyst. Normal arterial and venous waveforms on spectral Doppler analysis. Cul-de-sac: No free fluid. Procedure Note Bere Singh MD - 11/21/2024 PELVIC ULTRASOUND HISTORY: Abnormal uterine bleeding causing anemia. COMPARISON: None FINDINGS: Both transabdominal and endovaginal pelvic ultrasound were performed.Duplex Doppler scanning of the ovaries also performed. Uterus: 9.9 x 5.5 x 5.0 cm in size. 3.0 x 2.9 x 2.1 cm heterogeneoushypoechoic lesion arising from the right uterine fundus likely representsa subserosal fibroid. Endometrium: 0.4 cm in thickness which is within normal limits. No focalabnormality identified. Right ovary: Normal in size measuring 3.4 x 2.6 x 1.6 cm. It contains a1.8 cm dominant follicle. Normal arterial and venous waveforms onspectral Doppler analysis. Left ovary: Normal in size measuring 3.6 x 3.0 x 2.4 cm. It contains a 2.7x 2.6 x 2.0 cm cyst with a daughter cyst compatible with a physiologiccyst. Normal arterial and venous waveforms on spectral Doppler analysis. Cul-de-sac: No free fluid. IMPRESSION: No endometrial abnormality. 3.0 cm subserosal uterine fibroid. -------- FINAL REPORT -------- Dictated By: Bere Singh Dictated Date: 11/21/2024 20:19 ET Assigned Physician: Bere Singh Reviewed and Electronically Signed By: Bere Singh Signed Date: 11/21/2024 20:23 ET Workstation ID: [id number] Transcribed By: Self Edit Transcribed Date: 11/21/2024 20:19 ET us Maribel CHEEMA IMG US PROCEDURES Final Resu lt * US Duplex Abdomen/Pelvis/Retro Complete (11/21/2024 7:24 PM EDT) Anatomical Region Laterality Modality Body Ultrasound 11/21/2024 8:19 PM EDT Impressions 11/21/2024 8:23 PM EDT No endometrial abnormality. 3.0 cm subserosal uterine fibroid. -------- FINAL REPORT -------- Dictated By: Bere Singh Dictated Date: 11/21/2024 20:19 ET Assigned Physician: Bere Singh Reviewed and Electronically Signed By: Bere Singh Signed Date: 11/21/2024 20:23 ET Workstation ID: [id number] Transcribed By: Self Edit Transcribed Date: 11/21/2024 20:19 ET Narrative 11/21/2024 8:23 PM EDT PELVIC ULTRASOUND HISTORY: Abnormal uterine bleeding causing anemia. COMPARISON: None FINDINGS: Both transabdominal and endovaginal pelvic ultrasound were performed. Duplex Doppler scanning of the ovaries also performed. Uterus: 9.9 x 5.5 x 5.0 cm in size. 3.0 x 2.9 x 2.1 cm heterogeneous hypoechoic lesion arising from the right uterine fundus likely represents a subserosal fibroid. Endometrium: 0.4 cm in thickness which is within normal limits. No focal abnormality identified. Right ovary: Normal in size measuring 3.4 x 2.6 x 1.6 cm. It contains a 1.8 cm dominant follicle. Normal arterial and venous waveforms on spectral Doppler analysis. Left ovary: Normal in size measuring 3.6 x 3.0 x 2.4 cm. It contains a 2.7 x 2.6 x 2.0 cm cyst with a daughter cyst compatible with a physiologic cyst. Normal arterial and venous waveforms on spectral Doppler analysis. Cul-de-sac: No free fluid. Procedure Note Bere Singh MD - 11/21/2024 PELVIC ULTRASOUND HISTORY: Abnormal uterine bleeding causing anemia. COMPARISON: None FINDINGS: Both transabdominal and endovaginal pelvic ultrasound were performed.Duplex Doppler scanning of the ovaries also performed. Uterus: 9.9 x 5.5 x 5.0 cm in size. 3.0 x 2.9 x 2.1 cm heterogeneoushypoechoic lesion arising from the right uterine fundus likely representsa subserosal fibroid. Endometrium: 0.4 cm in thickness which is within normal limits. No focalabnormality identified. Right ovary: Normal in size measuring 3.4 x 2.6 x 1.6 cm. It contains a1.8 cm dominant follicle. Normal arterial and venous waveforms onspectral Doppler analysis. Left ovary: Normal in size measuring 3.6 x 3.0 x 2.4 cm. It contains a 2.7x 2.6 x 2.0 cm cyst with a daughter cyst compatible with a physiologiccyst. Normal arterial and venous waveforms on spectral Doppler analysis. Cul-de-sac: No free fluid. IMPRESSION: No endometrial abnormality. 3.0 cm subserosal uterine fibroid. -------- FINAL REPORT -------- Dictated By: Bere Singh Dictated Date: 11/21/2024 20:19 ET Assigned Physician: Bere Singh Reviewed and Electronically Signed By: Bere Singh Signed Date: 11/21/2024 20:23 ET Workstation ID: [id number] Transcribed By: Self Edit Transcribed Date: 11/21/2024 20:19 ET us Maribel CHEEMA IMG US PROCEDURES Final Resu lt * POC , urine manually resulted (11/13/2024 10:28 PM EDT) HCG, Ur POC Negative Negative POC hCG Int QC Pass? Yes Yes Urine Urine specimen obtained by clean catch procedure / Unknown 11/13/2024 10:28 PM EDT us Tyrel Segundo MD POINT OF CARE TEST ENTER/EDIT ORDERABLES Final Result * (ABNORMAL) CBC auto differential (11/13/2024 10:27 PM EDT) Only the most recent of2 resultswithin the time period is included. [facility] Signature WBC 8.0 4.8 - 10.8 K/mcL LAB HEMETOLOGY METHOD 11/13/2024 10:39 PM [facility] RBC 3.70(L) 3.80 - 4.80 M/mcL LAB HEMETOLOGY [facility] Hemoglobin 8.9(L) 11.5 - 16.0 g/dL LAB HEMETOLOGY METHOD 11/13/2024 10:39 PM [facility] Hematocrit 29.5(L) 35.0 - 47.0 % LAB HEMETOLOGY METHOD 11/13/2024 10:39 PM [facility] MCV 80.8 79.0 - 98.0 FL LAB HEMETOLOGY METHOD 11/13/2024 10:39 PM [facility] MCH 24.4(L) 27.0 - 32.0 pcg LAB HEMETOLOGY METHOD 11/13/2024 10:39 PM [facility] MCHC 30.2(L) 32.0 - 37.0 g/dL LAB HEMETOLOGY METHOD 11/13/2024 10:39 PM [facility] RDW 15.7(H) 11.0 - 15.0 % LAB HEMETOLOGY METHOD 11/13/2024 10:[facility] Platelets 329 130 - 400 K/mcL LAB HEMETOLOGY METHOD 11/13/2024 10:39 PM [facility] MPV 10.5 7.0 - 11.0 FL LAB HEMETOLOGY METHOD 11/13/2024 10:39 PM [facility] NRBC 0.0 <1.0 % LAB HEMETOLOGY METHOD [facility]/13[facility]2024 10:[facility] NRBC Absolute 0.00 <0.10 K/mcL LAB HEMETOLOGY METHOD 11/13/2024 10:[address] [facility] Neutrophils Relative 51.3 % LAB HEMETOLOGY METHOD 11/13/2024 10:39 PM [facility] Lymphocytes Relative 34.7 % LAB HEMETOLOGY METHOD 11/13[facility]2024 10:39 [facility] Monocytes Relative 9.3 % LAB HEMETOLOGY METHOD 11/13/2024 10:39 [facility] Eosinophils Relative 3.5 % LAB HEMETOLOGY METHOD 11/13/2024 10:39 PM [facility] Basophils Relative 1.0 % LAB HEMETOLOGY METHOD 11/13/2024 10:39 PM [facility] Immature Granulocytes Relative 0.2 % LAB HEMETOLOGY METHOD 11/13/2024 10:39 PM [facility] Neutrophils Absolute 4.11 1.50 - 7.00 K/mcL LAB HEMETOLOGY METHOD 11/13/2024 10:39 PM [facility] Lymphocytes Absolute 2.79 1.00 - 5.00 K/mcL LAB HEMETOLOGY METHOD 11/13/2024 10:39 PM [facility] Monocytes Absolute 0.75 0.20 - 1.00 K/mcL LAB HEMETOLOGY METHOD 11/13/2024 10:39 [facility] Eosinophils Absolute 0.28 0.00 - 0.50 K/mcL LAB HEMETOLOGY METHOD 11/13/2024 10:39 PM [facility] Basophils Absolute 0.08 0.00 - 0.20 K/mcL LAB HEMETOLOGY METHOD 11/13/2024 10:39 PM [facility] Immature Granulocytes Absolute 0.02 0.00 - 0.03 K/mcL LAB HEMETOLOGY METHOD 11/13/2024 10:[address] [facility] Blood Venous blood specimen / Unknown Venipuncture / Unknown 11/13/2024 10:27 PM EDT 11/13/2024 10:31 PM EDT us Tyrel Segundo MD LAB BLOOD ORDERABLES Final Res ult [facility] [address] [place] [address], [place] [phone] * (ABNORMAL) Basic metabolic panel (11/13/2024 10:27 PM EDT) Sodium 139 133 - 145 mmol/L LAB CHEMISTRY METHOD 11/13/2024 10:53 PM [facility] Potassium 3.3(L) 3.5 - 5.5 mmol/L LAB CHEMISTRY METHOD 11/13/2024 10:53 PM [facility] Chloride 110 96 - 110 mmol/L LAB CHEMISTRY METHOD 11/13/2024 10:53 PM [facility] CO2 23 21 - 32 mmol/L LAB CHEMISTRY METHOD 11/13/2024 10:53 PM [facility] Anion Gap 6 3 - 11 LAB CHEMISTRY METHOD 11/13/2024 10:53 PM [facility] Glucose 88 70 - 100 mg/dL LAB CHEMISTRY METHOD 11/13/2024 10:53 PM [facility] BUN 9 5 - 25 mg/dL LAB CHEMISTRY METHOD 11/13/2024 10:53 PM [facility] Creatinine 0.87 0.50 - 1.10 mg/dL LAB CHEMISTRY METHOD 11/13/2024 10:53 PM [facility] eGFR 90 >=60 mL/min/1. 73m2 LAB CHEMISTRY METHOD 11/13/2024 10:53 PM EDT [facility] Comment:Calculation based on the Chronic Kidney Disease Epidemiology Collaboration (CKD-EPI) equation refit without adjustment for race. BUN/Creatinine Ratio 10.3 LAB CHEMISTRY METHOD 11/13/2024 10:[address] [facility] Calcium 8.7 8.5 - 10.5 mg/dL LAB CHEMISTRY METHOD 11/13/2024 10:[address] [facility] Blood Venous blood specimen / Unknown Venipuncture / Unknown 11/13/2024 10:27 PM EDT 11/13/2024 10:31 PM EDT Tyrel Segundo MD LAB BLOOD ORDERABLES Final Res ult [facility] [address] [place] [address], [place] [phone] * ECG-Annotated (10/24/2024) Provider Onmarc COBIAN ECG ORDERABLES Final Result * ECG 12 lead (10/23/2024 3:37 PM EDT) Ventricular Rate ECG 87 BPM GEMUSE Atrial Rate 87 BPM GEMUSE P-R Interval 150 ms GEMUSE QRS Duration 78 ms GEMUSE Q-T Interval 360 ms GEMUSE QTc 433 ms GEMUSE P Wave [place] 66 degrees GEMUSE R [place] 60 degrees GEMUSE T [place] 60 degrees GEMUSE ECG Interpretation Normal sinus rhythm Nonspecific T wave abnormality Abnormal ECG When compared with ECG of 05-DEC-2020 18:19, No significant change was found Confirmed by JOSE C RESENDEZ ([id number]) on 10/25/2024 7:59:54 AM GEMUSE 10/23/2024 3:37 PM EDT 10/25/2024 7:59 AM EDT us Kannan Francis MD ECG ORDERABLES Final Result GEMUSE * Troponin I high sensitivity (10/23/2024 3:32 PM EDT) [facility] High Sensitivity Troponin I <3 <=54 ng/L LAB CHEMISTRY METHOD 10/23/2024 4:[address] [facility] Blood Venous blood specimen / Unknown Venipuncture / Unknown 10/23/2024 3:32 PM EDT 10/23/2024 3:42 PM EDT [facility] - 10/23/2024 4:12 PM EDT High levels of biotin in samples may falsely decrease hsTroponin values. Use caution when interpreting hsTroponin results in patients taking biotin who exhibit renal impairment (eGFR <60) or in patients taking more than 20 mg/day of biotin. Kannan Francis MD LAB BLOOD ORDERABLES Final R esult [facility] [address] [place] [address], * D-Dimer (Quantitative) (10/23/2024 3:32 PM EDT) [facility] D-Dimer, Quant (D-DU) 201 <=230 ng/mL DDU LAB COAGULATION METHOD 10/23/2024 3:[address] [facility] Blood Venous blood specimen / Unknown Venipuncture / Unknown 10/23/2024 3:32 PM EDT 10/23/2024 3:42 PM EDT [facility] - 10/23/2024 3:53 PM EDT D-Dimer <230 ng/mL (D-Dimer units) is the threshold for exclusion of DVT/PE. D-Dimer may be elevated in: Critically ill, severely infected, trauma patients, DIC, acute CVA, acute CT, unstable angina, AF, old age, , and smoking. D-Dimer may be decreased with: Initiation of heparin therapy and oral anticoagulants. Kannan Francis MD LAB BLOOD ORDERABLES Final R esult Performing Organization Address [facility]/ZIP Co de Phone Number [facility] [address] [place] [address], [place] [phone] * hCG, serum, qualitative (10/23/2024 3:26 PM EDT) Pathologist [facility] hCG Qual Negative Negative 10/23/2024 4:[address] [facility] Blood Venous blood specimen / Unknown Venipuncture / Unknown 10/23/2024 3:26 PM EDT 10/23/2024 3:43 PM EDT Judie CHEEMA LAB BLOOD ORDERABLES Final R esult Performing Organization Address [facility]/[place] Co de Phone Number [facility] [address] [place] [address], * Magnesium (10/23/2024 3:26 PM EDT) Pathologist [facility] Magnesium 2.1 1.9 - 2.6 mg/dL LAB CHEMISTRY METHOD 10/23/2024 4:[address] [facility] Blood Venous blood specimen / Unknown Venipuncture / Unknown 10/23/2024 3:26 PM EDT 10/23/2024 3:43 PM EDT Kannan Francis MD LAB BLOOD ORDERABLES Final R esult Performing Organization Address [facility]/ZIP Co de Phone Number [facility] [address] [place] [address], [place] [phone] * (ABNORMAL) Comprehensive Metabolic Panel (CMP) (10/23/2024 3:26 PM EDT) Pathologist [facility] Sodium 139 133 - 145 mmol/L LAB CHEMISTRY METHOD 10/23/2024 4:[address] [facility] Potassium 3.9 3.5 - 5.5 mmol/L LAB CHEMISTRY METHOD 10/23/2024 4:08 PM [facility] Chloride 111(H) 96 - 110 mmol/L LAB CHEMISTRY METHOD 10/23/2024 4:08 PM [facility] CO2 22 21 - 32 mmol/L LAB CHEMISTRY METHOD 10/23/2024 4:08 PM [facility] Anion Gap 6 3 - 11 LAB CHEMISTRY METHOD 10/23/2024 4:08 PM [facility] Glucose 83 70 - 100 mg/dL LAB CHEMISTRY METHOD 10/23/2024 4:08 PM [facility] BUN 13 5 - 25 mg/dL LAB CHEMISTRY METHOD 10/23/2024 4:08 PM [facility] Creatinine 0.92 0.50 - 1.10 mg/dL LAB CHEMISTRY METHOD 10/23/2024 4:08 PM [facility] eGFR 84 >=60 mL/min/1. 73m2 LAB CHEMISTRY METHOD 10/23/2024 4:08 PM [facility] Comment:Calculation based on the Chronic Kidney Disease Epidemiology Collaboration (CKD-EPI) equation refit without adjustment for race. BUN/Creatinine Ratio 14.1 LAB CHEMISTRY METHOD 10/23/2024 4:08 PM [facility] Calcium 8.5 8.5 - 10.5 mg/dL LAB CHEMISTRY METHOD 10/23/2024 4:08 PM [facility] AST (SGOT) 14 10 - 42 unit/L LAB CHEMISTRY METHOD 10/23/2024 4:08 PM [facility] ALT (SGPT) 13 10 - 60 unit/L LAB CHEMISTRY METHOD 10/23/2024 4:08 PM [facility] Alkaline Phosphatase 75 42 - 121 unit/L LAB CHEMISTRY METHOD 10/23/2024 4:08 PM [facility] Total Protein 6.9 6.0 - 8.0 g/dL LAB CHEMISTRY METHOD 10/23/2024 4:[address] [facility] Albumin 3.9 3.2 - 5.0 g/dL LAB CHEMISTRY METHOD 10/23/2024 4:[address] [facility] Total Bilirubin 0.4 0.0 - 1.4 mg/dL LAB CHEMISTRY METHOD 10/23/2024 4:[address] [facility] Blood Venous blood specimen / Unknown Venipuncture / Unknown 10/23/2024 3:26 PM EDT 10/23/2024 3:43 PM EDT Kannan Francis MD LAB BLOOD ORDERABLES Final R esult [facility] [address] [place] [address], [place] [phone] * Cervical Cancer Screening: HPV (04/30/2022) [facility] Cervical Cancer Screening: HPV Negative, Abstracted Historical Provider HEALTH MAINTENANCE Final Result * HIV Screening (04/15/2022) [facility] HIV Screening Abstracted Historical Provider HEALTH MAINTENANCE Final Result * Hepatitis C Screening (04/15/2022) [facility] Hepatitis C Screening Abstracted Historical Provider HEALTH MAINTENANCE Final Result from Last 3 Months or Most Recently Relevant to Health Maintenance Insurance [place]ICA[place] - [place] [facility] [address] [place] [address] Care Teams [employer] Work[employer] Relationship Specialty Start Date End Date Norma Gutierrez MD [address] [place] [address] PCP - General 10/07/22
--- OUTSIDE RECORDS SUMMARY | 2024-12-02 08:55 | XMS_ITS | Encounter Summary ---
Author Organization [employer] Address 75 [facility] [address] [place] [address] Care Team Providers Care Learning Disabilities Resource Teacher Name Role Phone Norma Gutierrez MD Primary Care Provider [phone] Reason for Visit * Reason Onset Date Comments Reschedule 08/21/2023 Encounter Details Date Type Department Care Team ([facility] st Contact Info) Description 08/21/2023 Telephone [facility] MED & PEDS [address] [place], [place] [phone] Norma Gutierrez MD [address] [place] [address] Reschedule Social History Tobacco Use Types Packs/Day [...] 08/24 PAP appointment. Please contact pt at [phone] documented in this encounter Plan of Treatment Upcoming Encounters Date Type Department Care Team ([facility] st Contact Info) Description 12/08/2024 9:00 AM EDT Office Visit [facility] MED & PEDS [address] [place] [address] Norma Gutierrez MD [address] [place] [address] documented as of this encounter Visit Diagnoses Not on filedocumented in this encounter Care Teams Learning Disabilities Resource Teacher Relationship Specialty Start Date End Date Norma Gutierrez MD [address] [place] [address] PCP - General Internal Medicine 02/29/16 documented as of this encounter
--- OUTSIDE RECORDS SUMMARY | 2024-12-02 08:55 | XMS_ITS | Clinical Summary ---
Author Organization [employer] Address 75 [facility] 7t [place] [address] Care Team Providers Care Stopper Setter Name Role Phone Norma Gutierrez MD Primary Care Provider [phone] Allergies No known active allergies Medications * [...] NEEDED 18 g 5 Active nystatin (Nystop) 246811 UNIT/GM powderIndicatio ns:Intertrigo Apply topically 2 times daily. 60 g 1 025 2025 Active Phentermine-Top iramate ER 3.75-23 MG capsule sustained-relea se 24 hrIndications:C lass 1 obesity due to excess calories with serious comorbidity and body mass index (BMI) of 30.0 to 30.9 in adult One Capsule daily 14 capsule 025 Active diphenhydrAMINE (BENADryl) 25 MG tabletIndicatio ns:Acute exacerbation of asthma with allergic rhinitis Take 1 tablet (25 mg) by mouth if needed at bedtime (wheezing). 30 tablet 025 Active phentermine 15 MG capsuleIndicati ons:Class 1 [...] split. 90 tablet 3 025 2025 Active ferrous sulfate (Fe Tabs) 325 (65 Fe) MG EC tabletIndicatio ns:Normocytic anemia Take 1 tablet (325 mg) by mouth with breakfast, with lunch, and with evening meal. Do not crush, chew, or split. 90 tablet 3 025 2024 Discontinued(R eorder (will not trigger notification to Pharmacy)) phentermine 15 MG capsuleIndicati ons:Class 1 obesity [...] her body to adapt. -Pt was prescribed glkquky-ahqqloqxmvifj-pdjadsvi (Excedrin Migraine) 250-250-65 MG tablet -Pt requested [...] has positive support from her family and hinduism community. Protective factors identified are her children [...] Encounters Date Type Department Care Team Description 12/01/2024 Telephone [facility] MED & PEDS [address] [place] [address] Norma Gutierrez MD Results 11/22/2024 Orders Only [place] [facility] [address] [facility] [place] [address] Moise Benitez MD 11/14/2024 Telephone [facility] MED & PEDS [address] [place] [address] Norma Gutierrez MD Medication Question 11/11/2024 Results Follow-Up [facility] MED & PEDS [address] [place] [address] Adrianne Raymundo, ABRAHAM CBC auto differential 11/10/2024 Orders Only [facility] MED & PEDS [address] [place] [address] Norma Gutierrez MD 11/09/2024 Refill [facility] MED & PEDS [address] [place] [address] Norma Gutierrez MD Class 1 obesity due to excess calories with serious comorbidity and body mass index (BMI) of 30.0 to 30.9 in adult 11/02/2024 11:15 AM EDT Office Visit [facility] MED & PEDS [address] [place] [address] Norma Gutierrez MD Normocytic anemia (Primary Dx); Acute exacerbation of asthma with allergic rhinitis; Syncope, unspecified syncope type 11/02/2024 Travel 11/01/2024 Telephone [facility] MED & PEDS [address] [place] [address] Norma Gutierrez MD Chart Prep 10/25/2024 Telephone [facility] MED & PEDS [address] [place] [address] Norma Gutierrez MD ER Follow-up 10/25/2024 Orders Only [place] [facility] [address] [facility] [place], [place] [phone] Moise Benitez MD 10/13/[address] [address] Norma Gutierrez MD Medication Question 10/12/2024 Orders Only [facility] MED & PEDS [address] [place] [address] Norma Gutierrez MD Class 1 obesity due to excess calories with serious comorbidity and body mass index (BMI) of 30.0 to 30.9 in adult (Primary Dx) 10/11/2024 9:30 AM EDT Office Visit [facility] MED & PEDS [address] [place] [address] Norma Gutierrez MD Annual physical exam (Primary Dx); Acute pain of right shoulder; Normocytic anemia; Class 1 obesity due to excess calories with serious comorbidity and body mass index (BMI) of 30.0 to 30.9 in adult 10/11/2024 Telephone [facility] MED & PEDS [address] [place] [address] Norma Gutierrez MD Prior Authorization 10/11/2024 Travel 10/03/2024 Patient Outreach [address] [address] Norma Gutierrez MD Pre-visit Planning (Pre visit planning LVM ) 09/29/2024 3:30 PM EDT Office Visit [facility] MED & PEDS [address] [place] [address] Norma Gutierrez MD Acute pain of right shoulder (Primary Dx); Anxiety 09/29/2024 Travel 09/28/2024 Telephone [facility] MED & PEDS [address] [place] [address] Norma Gutierrez MD Chart Prep 09/27/[address] [address] Norma Gutierrez MD Nurse Triage 09/21/2024 Orders Only [facility] External Provider, [facility] from Last 3 Months Immunizations Immunization Administration [...] ([facility] st Contact Info) Description 12/08/2024 9:00 AM EDT Office Visit [facility] MED & PEDS [address] [place] [address] Norma Gutierrez MD [address] [place] [address] Health Maintenance Due Date Last Done Comments Disability Screening 1990 Family Planning (PISQ) 2005 Hepatitis B Vaccines (1 of 3 - 19+ 3-dose series) 2009 Pneumococcal Vaccine: Pediatrics (0 to 5 Years) and At-Risk Patients (6 to 49) Years (1 of 2 - PCV) 2009 COVID-19 Vaccine ( season) 2024 07/12/2021, 01/18/2021, 12/28/2020 Influenza Vaccine (#1) 2024 4, 12/11/2020, 01/03/2019, Additional history exists Alcohol/Substance Use Screening 10/11/2025 10/11/2024 Depression Screening 10/11/2025 10/11/2024, 10/12/19 SDOH Screening 10/11/2025 10/11/2024 Tobacco Screening 11/02/2025 [...] Procedure Name Priority Date/Time Associated Diagnosis Comments VASC US ABDOMINAL/PELVIC DUPLEX COMPLETE Routine 11/21/2024 2:07 PM EDT US PELVIS NON OB TRANSABDOMINAL AND TRANSVAGINAL COMPLETE WITH DOPPLEE Routine 11/21/2024 9:25 AM EDT CBC WITH AUTO DIFFERENTIAL Routine 11/09/2024 10:02 [...] Recently Relevant to Health Maintenance Results * VASC US Abdominal pelvic Duplex Complete (11/21/2024 2:07 PM EDT) us Historical Provider CV VASCULAR PROCEDURES Fi nal Result * US PELVIS NON OB TRANSABDOMINAL AND TRANSVAGINAL COMPLETE WITH DOPPLER LIMITED (11/21/2024 9:25 AM EDT) Anatomical Region Laterality Modality Pelvis Ultrasound us Historical Provider IMG US PROCEDURES Final R esult * (ABNORMAL) CBC auto differential (11/09/2024 10:02 AM EDT) White Blood Count 5.1 4.8 - 10.8 X10*3/uL [facility] Red Blood Count 3.50(L) 4.20 - 5.50 X10*6/uL [facility] Hemoglobin 8.9(L) 12.0 - 16.0 g/dl [facility] Hematocrit 27.9(L) 37.0 - 47.0 % [facility] Mean Corpuscular Volume 79.7(L) 80.0 - 98.0 fL [facility] Mean Corpuscular Hemoglobin 25.4(L) 27.0 - 33.0 pg [facility] Mean Corpuscular HGB Conc 31.9 31.0 - 35.0 g/dl [facility] Red Cell Distribution Width 16.2(H) 11.0 - 16.0 % [facility] Platelet Count 335 160 - 400 X10*3/uL [facility] Mean Platelet Volume 11.2 9.4 - 12.3 fL [facility] Neutrophils Percent Auto 45.6 45 - 73 % [facility] Imm Gran Pct Auto 0.0 0.0 - 0.4 % [facility] Lymphocytes Percent Auto 39.6 20 - 40 % [facility] Monocytes Percent Auto 9.5 2 - 11 % [facility] Eosinophils Percent Auto 4.1(H) 0 - 4 % [facility] Basophils Percent Auto 1.2 0 - 2 % [facility] NRBC Pct Auto 0.0 0.0 - 0.2 /100WBC [facility] Neutrophils Absolute Auto 2.3 2.0 - 8.3 x10*3/uL [facility] Imm Gran Abs Auto 0.00 0.00 - 0.03 X10*3/uL [facility] Lymphocytes Absolute Auto 2.0 1.2 - 4.9 X10*3/uL [facility] Monocytes Absolute Auto 0.5 0.1 - 1.2 X10*3/uL [facility] Eosinophils Absolute Auto 0.2 0.0 - 0.4 X10*3/uL [facility] Basophils Absolute Auto 0.1 0.0 - 0.2 X10*3/uL [facility] NRBC Abs Auto 0.000 0.0 - 0.012 X10*3/uL [facility] Blood Venous blood specimen / Unknown 11/09/2024 10:02 AM EDT 11/09/2024 10:02 AM EDT Norma Gutierrez MD LAB BLOOD ORDERABLES Final Result [facility] [address] [place] [phone] * ECG 12 lead (10/23/2024 12:55 PM EDT) us Historical Provider ECG ORDERABLES Final Res ult * XR Shoulder 2+ Views Right (09/21/2024 9:37 PM EDT) Anatomical Region Laterality Modality Upper Extremities, Shoulder Right Radi ographic Imaging 09/21/2024 9:37 PM EDT Narrative 09/21/2024 9:39 PM EDT [address] [address] XRay Report Signed Patient: Omid Lundy MR#: [id number] : 1990 Acct:[id number] Age/Sex: 34 / F ADM Date: 09/21/24 Loc: HO.ED Attending Dr: Ordering Physician: Olivia Borjas NP Date of Service: 09/21/24 Procedure(s): XR shoulder RT min 2V Accession Number(s): [id number] cc: Norma Gutierrez MD; Olivia Borjas NP [...] in OV> 09/21/242137 DD/ 36 TD/TT: 09/21/242136 Chief Warden: Procedure Note Donotuseinterpreter, Image - 09/21/[address] [address] XRay Report Signed Patient: Omid LundyMR#: [id number] : 1990Acct:[id number] Age/Sex: 34 / FADM Date: 09/21/24 Loc: HO.ED Attending Dr: Ordering Physician: Olivia Borjas NP Date of Service: 09/21/24 Procedure(s): XR shoulder RT min 2V Accession Number(s): [id number] cc: Norma Gutierrez MD; Olivia Borjas NP [...] in OV> 09/21/242137 DD/ 36 TD/TT: 09/21/242136 Chief Warden: us [facility] External Provider IMG XR PROCEDURES Edited Result - Final * Hepatitis C Viral RNA, Quantitative, Real-Time PCR (07/11/2024 9:26 AM EDT) Hepatitis C Viral Load <15 NOT DETECTED NOT DETECTED IU/mL [facility] HCV Log PCR <1.18 NOT DETECTED NOT DETECTED Log IU/mL [facility] Comment:For additional infor osmin, please refer tohttp://education.zSoup/faq/TVY68y4(This link is being provided for informational/educational purposes only.)THIS TEST WAS PERFORMED AT:[employer] [place] [phone] ANTONIO WICK MD Blood Venous blood specimen / Unknown 07/11/2024 9:26 AM EDT 07/11/2024 2:10 PM EDT Norma Gutierrez MD LAB BLOOD ORDERABLES Final Result Performing Organization Address City/[facility]/ZIP Co de Phone Number [facility] [address] [place] [phone] * Lipid Panel, Standard (07/11/2024 9:26 AM EDT) Triglycerides 66 <150 mg/dL [facility] Comment:Desirable Triglyceri de: less than 150 mg/dLBorderline High Triglyceride 150-199 mg/dLHigh Triglyceride: 200-499 mg/dLVery High Triglyceride: greater than or equal to 5OO mg/dL Cholesterol 144 <200 mg/dL [facility] Comment:Desirable Cholestero l: less than 200 mg/dLBorderline High Cholesterol: 200-239 mg/dLHigh Cholesterol: greater than 239 mg/dL LDL Cholesterol Calculated 84 <100 mg/dL [facility] Comment:Desirable LDL: less than 100 mg/dLNear Optimal/Above Optimal LDL: 110- 129 mg/dLBorderline High LDL: 130-159 mg/dLHigh LDL: 160-189 mg/dLVery High LDL: greater than or equal to 190 mg/dL HDL Cholesterol 47 >40 mg/dL [facility] Comment:Desirable HDL: great er than 40 mg/dL Note: This HDL assay may give artificially low results in patients with liver disease. Blood Venous blood specimen / Unknown 07/11/2024 9:26 AM EDT 07/11/2024 2:10 PM EDT us Norma Gutierrez MD LAB BLOOD ORDERABLES Final Result [facility] [address] [place] [phone] [phone] * HM PAP/HPV (04/30/2022 2:50 PM [...] of detection of this assay. The [employer] Dis[employer] HIV Ag/Ab Combo assay result and supplemental assay results should be interpreted in conjunction with the patient's clinical presentation, history and other laboratory results. If the results are inconsistent with clinical evidence, additional testing is suggested to confirm the result. 02/17/2019 10:0 8 AM EST Norma Gutierrez MD HISTORICAL/NON ORDERABLE LA BS Final Result Performing Organization Address City/State/[facility] Co de Phone Number [facility] [address] from Last 3 Months or Most Recently Relevant to Health Maintenance Insurance [facility] , [address] [place] [address] [facility] Care Teams Stopper Setter Relationship Specialty Start Date End Date Norma Gutierrez MD [address] [place] [address] PCP - General Internal Medicine 02/29/16
--- OUTSIDE RECORDS SUMMARY | 2024-12-02 08:55 | XMS_ITS | Encounter Summary ---
Author Organization [employer] Address 75 [facility] 7t [place] [address] Care Team Providers Care Continuous Process Coffee Roaster Name Role Phone Norma Gutierrez MD Primary Care Provider [phone] Encounter Details Date Type Department Care Team ([facility] st Contact Info) Description 11/22/2024 Orders Only [facility] [address] [place] [address] Provider, MD Moise Social History Tobacco Use [...] Upcoming Encounters Date Type Department Care Team ([facility] st Contact Info) Description 12/08/2024 9:00 AM EDT Office Visit [facility] MED & PEDS [address] [place] [address] Norma Gutierrez MD [address] [place], [place] [phone] documented as of this encounter Procedures Procedure Name Priority Date/Time Associated Diagnosis Comments VASC US ABDOMINAL/PELVIC DUPLEX COMPLETE Routine 11/21/2024 2:07 PM EDT US PELVIS NON OB TRANSABDOMINAL AND TRANSVAGINAL COMPLETE WITH DOPPLEE Routine 11/21/2024 9:25 AM EDT documented in this encounter Results * VASC US Abdominal pelvic Duplex Complete (11/21/2024 2:07 PM EDT) us Historical Provider CV VASCULAR PROCEDURES Fi nal Result * US PELVIS NON OB TRANSABDOMINAL AND TRANSVAGINAL COMPLETE WITH DOPPLER LIMITED (11/21/2024 9:25 AM EDT) Anatomical Region Laterality Modality Pelvis Ultrasound us Historical Provider MD JENSEN US PROCEDURES Final R esult documented in this encounter Visit Diagnoses Not on filedocumented in this encounter Additional Health Concerns Assessment Noted Time PHQ-9 Depression Total Score: 3 10/12/19 25 9:54 AM EDT documented as of this encounter Care Teams Continuous Process Coffee Roaster Relationship Specialty Start Date End Date Norma Gutierrez MD [address] [place] [address] PCP - General Internal Medicine 02/29/16 documented as of this encounter
--- OUTSIDE RECORDS SUMMARY | 2024-12-02 08:55 | XMS_ITS | Encounter Summary ---
Author Organization [employer] Address 75 [facility] 7t [place] [address] Care Team Providers Care Supervisor Functional Testing Name Role Phone Norma Gutierrez MD Primary Care Provider [phone] Encounter Details Date Type Department Care Team ([facility] st Contact Info) Description 10/25/2024 Orders Only [facility] [address] [place] [address] Provider, MD Moise Social History Tobacco Use [...] Description 12/08/2024 9:00 AM EDT Office Visit [facility] MED & PEDS [address] [place] [address] Norma Gutierrez MD [address] [place] [address] documented as of this encounter Procedures Procedure [...] documented as of this encounter Care Teams Supervisor Functional Testing Relationship Specialty Start Date End Date Norma Gutierrez MD [address] [place] [address] PCP - General Internal Medicine 02/29/16 documented as of this encounter
--- OUTSIDE RECORDS SUMMARY | 2024-12-02 08:55 | XMS_ITS | Encounter Summary ---
Author Organization [employer] Address 75 [facility] [address], [place] [address] Care Team Providers Care Creative Project Manager Name Role Phone Norma Gutierrez MD Primary Care Provider [phone] Reason for Visit * Reason Onset Date Comments Results 12/01/2024 Encounter Details Date Type Department Care Team ([facility] st Contact Info) Description 12/01/2024 Telephone [facility] CH[facility] MED & PEDS [address] [place] [address] Norma Gutierrez MD [address] [place] [address] Results Social History Tobacco Use Types Packs/Day Years [...] encounter Miscellaneous Notes * Telephone Encounter - Lindsay Posey RN - 12/01/2024 11:57 AM EDT Images from the original note were not included. TC placed to patient [phone] in regards to below message. Patient verbalized understanding anddid not have any further questions/concerns. Patient informed she will receive a letter in the mailwith appointment date and time or a call from cardiology office with appointment date and time. Patient verbalized understanding. Please review regarding cardiology referral (referral in chart appears to be only for Holter monitor). Please advise if an additional referral for cardiology needs to be placed for outpatient f/u. Thank you! Norma Gutierrez MD P [facility] Med & Peds Nurses Please call Ms Omid Lundy to report the results of the Holter monitor. * Total monitoring time 2 days. * Underlying rhythm is sinus with an average rate of 93/Min. * Rare supraventricular ectopy. * Rare ventricular ectopy. * No significant pauses or high-grade AV blocks. * No patient markers or diary events. No significant findings. Pt was Already referred to Cardiology. documented in this encounter Plan of Treatment Upcoming Encounters Date Type Department Care Team (Late st Contact Info) Description 12/08/2024 9:00 AM EDT Office Visit [facility] MED & PEDS [address] [place] [address] Norma Gutierrez MD [address] [place] [address] documented as of this encounter Visit Diagnoses Not on filedocumented in this encounter Additional Health Concerns Assessment Noted Time PHQ-9 Depression Total Score: 3 10/12/19 25 9:54 AM EDT documented as of this encounter Care Teams Creative Project Manager Relationship Specialty Start Date End Date Norma Gutierrez MD [address] [place] [address] PCP - General Internal Medicine 02/29/16 documented as of this encounter
--- OUTSIDE RECORDS SUMMARY | 2024-12-02 08:55 | XMS_ITS | Encounter Summary ---
Author Organization [employer] Address 75 [facility] 7t [place] [address] Care Team Providers Care Sweatband Perforator Name Role Phone Norma Gutierrez MD Primary Care Provider [phone] Encounter Details Date Type Department Care Team ([facility] st Contact Info) Description 11/10/2024 Orders Only [facility] CHC MED & PEDS [address] [place], [place] [phone] Norma Gutierrez MD [address] [place] [address] Social History Tobacco Use Types Packs/Day Years [...] Upcoming Encounters Date Type Department Care Team ([facility] st Contact Info) Description 12/08/2024 9:00 AM EDT [facility] [address] [place] [address] Norma Gutierrez MD [address] [place] [address] documented as of this encounter Visit Diagnoses Not on filedocumented in this encounter Additional Health Concerns Assessment Noted Time PHQ-9 Depression Total Score: 3 10/12/19 25 9:54 AM EDT documented as of this encounter Care Teams Sweatband Perforator Relationship Specialty Start Date End Date Norma Gutierrez MD [address] [place] [address] PCP - General Internal Medicine 02/29/16 documented as of this encounter
--- OUTSIDE RECORDS SUMMARY | 2024-12-02 08:55 | XMS_ITS | Encounter Summary ---
Author Organization [employer] Address [address] [facility] [address] 7[address] [place] [address] Care Team Providers Care Snagger Name Role Phone Norma Gutierrez MD Primary Care Provider [phone] Encounter Details Date Type Department Care Team ([facility] st Contact Info) Description 05/24/2024 Orders Only [facility] CHC MED & PEDS [address] [place] [address] Provider, MD Moise Social History Tobacco Use [...] Description 12/08/2024 9:00 AM EDT Office Visit [facility] MED & PEDS [address] [place] [address] Norma Gutierrez MD [address] [place] [address] documented as of this encounter Procedures Procedure Name Priority Date/Time Associated Diagnosis Comments HM PAP/HPV Routine 04/30/2022 2:50 PM EST documented in this encounter Results * HM PAP/HPV (04/30/2022 2:50 PM EST) Historical Provider HEALTH MAINTENANCE Final Result documented in this encounter Visit Diagnoses Not on filedocumented in this encounter Care Teams Snagger Relationship Specialty Start Date End Date Norma Gutierrez MD [address] [place] [address] PCP - General Internal Medicine 02/29/16 documented as of this encounter
== END 2024-12-02 09:37 | disposition home or self-care (01) ==
LOC: HO.HOS 08:35
PROVIDERS: Visit Provider Physician Assistant
DX: M75.31 Calcific tendinitis of right shoulder (principal)
CPT/HCPCS: 99203; G2211

== ENCOUNTER 2024-12-08 09:55 | Outpatient (REF) | payer OTHER, MEDICAID, SELFPAY ==
[2024-12-08 14:31] LABS: MANUAL DIFF FLAG NO
[2024-12-08 14:34] LABS: Hematocrit 32.2 % (37.0-47.0); Hemoglobin 9.7 g/dl (12.0-16.0); Imm Gran Abs Auto 0.02 X10*3/uL (0.00-0.03); Imm Gran Pct Auto 0.4 % (0.0-0.4); Lymphocytes Absolute Auto 1.8 X10*3/uL (1.2-4.9); Mean Corpuscular HGB Conc 30.1 g/dl (31.0-35.0); Mean Corpuscular Hemoglobin 24.5 pg (27.0-33.0); Mean Corpuscular Volume 81.3 fL (80.0-98.0); NRBC Abs Auto 0.000 X10*3/uL (0.0-0.012); NRBC Pct Auto 0.0 /100WBC (0.0-0.2); Platelet Count 410 X10*3/uL (160-400); Red Blood Count 3.96 X10*6/uL (4.20-5.50); White Blood Count 5.6 X10*3/uL (4.8-10.8)
== END 2024-12-08 09:56 | disposition home or self-care (01) ==
LOC: HO.CHCLDS 09:55
PROVIDERS: Visit Provider Internal Medicine
DX: R00.2 Palpitations (principal)
CPT/HCPCS: 36415; 84443; 85025

== ENCOUNTER 2025-01-04 10:33 | Outpatient (REF) | payer OTHER, MEDICAID, SELFPAY ==
--- OUTSIDE RECORDS SUMMARY | 2025-01-03 15:15 | XMS_ITS | Encounter Summary ---
Author Organization [employer] Address [address] [facility] 7 [place] [address] Care Team Providers Care Provider Enrollment Specialist Name Role Phone Norma Gutierrez MD Primary Care Provider [phone] Reason for Visit * Reason Comments Follow-up Encounter Details Date Type Department Care Team ([facility] Contact Info) Description 01/03/2025 3:15 PM EST Office Visit [facility] CHC MED & PEDS [address] [place] [address] Norma Gutierrez MD [address] [place] [address] Anxiety (Primary Dx); Palpitations Social History Tobacco Use Types Packs/Day Years [...] Sign Reading Time Taken Comments Blood Pressure - - Pulse 75 01/03/2025 2:53 PM EST Temperature - - Respiratory Rate 20 01/03/2025 2:53 PM EST Oxygen Saturation 99% 01/03/2025 2:53 PM EST Inhaled Oxygen Concentration - - Weight 78.5 kg (173 lb) 01/03/2025 2:53 PM EST Height 161 cm (5' 3.39 ) 01/03/2025 2:53 PM EST Body Mass Index 30.27 01/03/2025 2:53 PM EST documented in this encounter Progress Notes * Norma Gutierrez MD - 01/03/2025 3:15 PM EST SUBJECTIVE Omid Lundy is a 34 y.o. female who presents for Follow-up. Omid Kamron, 34-year-old female - Episode of syncope about one month prior to encounter - History of iron deficiency anemia and asthma - Chest pain and palpitations for two days prior to December 13, 2024, described as heart beating harder and quicker, non-radiating, associated with nausea, not associated with vomiting, shortness of breath, or diaphoresis - Emergency department visit on December 13, 2024, for chest pain; workup performed - Reports feeling very stressed due to separation from and caring for two children (ages seven and two) - Experiences anxiety, especially during episodes of racing heartbeat - Denies feeling depressed - Ongoing counseling with therapist, not consistently scheduled - Daughter (age seven) considered for counseling due to emotional impact of family situation Problem List[1] Allergies[2] Medications Ordered Prior to Encounter[3] Review of Systems Constitutional: Negative for activity change, appetite change and chills. HENT: Negative for ear discharge, ear pain and facial swelling. Respiratory: Negative for cough, choking and shortness of breath. Cardiovascular: Negative for leg swelling. Gastrointestinal: Negative for anal bleeding, blood in stool and constipation. OBJECTIVE Vitals: 01/03/25 1453 Pulse: 75 Resp: 20 SpO2: 99% Weight: 173 lb (78.5 kg) Height: 5' 3.39 (1.61 m) Physical Exam Constitutional: General: She is not in acute distress. Appearance: Normal appearance. She is not ill-appearing, toxic-appearing or diaphoretic. Cardiovascular: Rate and Rhythm: Normal rate and regular rhythm. Pulmonary: Effort: Pulmonary effort is normal. No respiratory distress. Breath sounds: No stridor. Neurological: Mental Status: She is alert. Assessment/Plan Assessment/Plan Diagnoses and all orders for this visit: Anxiety - busPIRone (Buspar) 5 MG tablet; Take 1 tablet (5 mg) by mouth 2 times daily. Palpitations Anxiety: - Anxiety is the main issue, exacerbated by recent personal stressors, including separation from and responsibilities of caring for two young children. - Prescribed an anxiolytic agent, starting with 5 mg twice daily for one week, then increasing to 10 mg twice daily if tolerated. Recommended follow-up in 4 weeks to assess response to medication. Discussed the importance of continuing therapy sessions and considering counseling for her daughter. Also advised to keep her scheduled appointment w/ cardiology This note was drafted using Ambient (AI) technology. The patient/patient's guardian has been informed and has consented to the use of this technology: Yes [1] Patient Active Problem List Diagnosis Asthma [...] candidiasis. Do not swallow. 30.6 each 11 diphenhydrAMINE (BENADryl) 25 MG tablet Take 1 tablet (25 mg) by mouth if needed at bedtime (wheezing). 30 tablet 0 ferrous sulfate (Fe Tabs) 325 (65 Fe) MG EC tablet Take 1 tablet (325 mg) by mouth with breakfast, with lunch, and with evening meal. Do not crush, chew, or split. 90 tablet 3 norethindrone (Micronor) 0.35 MG tablet Take 1 tablet by mouth Once per day. nystatin (Nystop) 632483 UNIT/GM powder Apply topically 2 times daily. 60 g 1 phentermine 15 MG capsule TAKE 1 CAPSULE BY MOUTH BEFORE BREAKFAST 30 capsule 0 Phentermine-Topiramate ER 3.75-23 MG capsule sustained-release 24 hr One Capsule daily 14 capsule 0 27-1 MG tablet Take 1 tablet by mouth in the morning. thiamine (Vitamin B-1) 50 MG tablet Take 50 mg by mouth in the morning. tiZANidine (Zanaflex) 4 MG tablet Take 1 tablet (4 mg) by mouth every 6 (six) hours if needed for muscle spasms for up to 10 days. 30 tablet 0 Ventolin HFA 108 (90 Base) MCG/ACT inhaler INHALE 2 PUFF DIRECTED FOUR TIMES A DAY NEEDED 18 g 5 No current facility-administered medications on file prior to visit. documented in this encounter Plan of Treatment Upcoming Encounters Date Type Department Care Team (Late st Contact Info) Description 02/02/2025 11:30 AM EST Office Visit [facility] MED & PEDS [address] [place] [address] Norma Gutierrez MD [address] [place] [address] documented as of this encounter Visit Diagnoses Diagnosis Anxiety- Primary Anxiety state, unspecified Palpitations documented in this encounter Additional Health Concerns Assessment Noted Time PHQ-9 Depression Total Score: 3 08/12/20 25 9:54 AM EDT documented as of this encounter Care Teams Provider Enrollment Specialist Relationship Specialty Start Date End Date Norma Gutierrez MD [address] [place] [address] PCP - General Internal Medicine 02/29/16 documented as of this encounter
--- NOTE | ~2025-01-04 | XR_ITS ---
EXAMINATION: XR SHOULDER 2 OR MORE VIEWS LEFT HISTORY: M25.512 - Pain in left shoulder COMPARISON: There are no prior studies available for comparison. FINDINGS: Three views of the left shoulder are submitted. Osseous mineralization is normal. There is no fracture or dislocation. The glenohumeral and acromioclavicular joint spaces are preserved. The soft tissues are unremarkable. XR/XR shoulder LT min 2V IMPRESSION: Unremarkable examination of the left shoulder. Electronically signed by: Tyler Zamora MD 01/04/2025 01:50 PM EST
--- OUTSIDE RECORDS SUMMARY | 2025-01-04 12:19 | XMS_ITS | Encounter Summary ---
Author Organization [employer] Address [address] [facility] [address] 7[address] [place] [address] Care Team Providers Care Regulatory Affairs Director Name Role Phone Norma Gutierrez MD Primary Care Provider [phone] Encounter Details Date Type Department Care Team ([facility] st Contact Info) Description 07/12/2024 Orders Only [facility] CHC MED & PEDS [address] [place], [place] [address] Norma Gutierrez MD [address] [place] [address] Normocytic anemia (Primary Dx) Social History Tobacco [...] Upcoming Encounters Date Type Department Care Team ([facility] st Contact Info) Description 02/02/2025 11:30 AM EST Office Visit [facility] MED & PEDS [address] [place] [address] Norma Gutierrez MD [address] [place] [address] documented as of this encounter Procedures Procedure Name Priority Date/Time Associated Diagnosis Comments CBC WITH AUTO DIFFERENTIAL Routine 11/09/2024 10:02 AM EDT Normocytic anemia documented in this encounter Results * (ABNORMAL) CBC auto differential (11/09/2024 10:02 AM EDT) White Blood Count 5.1 4.8 - 10.8 X10*3/uL [facility] Red Blood Count 3.50(L) 4.20 - 5.50 X10*6/uL [facility] Hemoglobin 8.9(L) 12.0 - 16.0 g/dl [facility] Hematocrit 27.9(L) 37.0 - 47.0 % [facility] Mean Corpuscular Volume 79.7(L) 80.0 - 98.0 fL [facility] Mean Corpuscular Hemoglobin 25.4(L) 27.0 - 33.0 pg [facility] Mean Corpuscular HGB Conc 31.9 31.0 - 35.0 g/dl [facility] Red Cell Distribution Width 16.2(H) 11.0 - 16.0 % [facility] Platelet Count 335 160 - 400 X10*3/uL [facility] Mean Platelet Volume 11.2 9.4 - 12.3 fL [facility] Neutrophils Percent Auto 45.6 45 - 73 % [facility] Imm Gran Pct Auto 0.0 0.0 - 0.4 % [facility] Lymphocytes Percent Auto 39.6 20 - 40 % [facility] Monocytes Percent Auto 9.5 2 - 11 % [facility] Eosinophils Percent Auto 4.1(H) 0 - 4 % [facility] Basophils Percent Auto 1.2 0 - 2 % [facility] NRBC Pct Auto 0.0 0.0 - 0.2 /100WBC [facility] Neutrophils Absolute Auto 2.3 2.0 - 8.3 x10*3/uL [facility] Imm Gran Abs Auto 0.00 0.00 - 0.03 X10*3/uL [facility] Lymphocytes Absolute Auto 2.0 1.2 - 4.9 X10*3/uL [facility] Monocytes Absolute Auto 0.5 0.1 - 1.2 X10*3/uL [facility] Eosinophils Absolute Auto 0.2 0.0 - 0.4 X10*3/uL [facility] Basophils Absolute Auto 0.1 0.0 - 0.2 X10*3/uL [facility] NRBC Abs Auto 0.000 0.0 - 0.012 X10*3/uL [facility] Blood Venous blood specimen / Unknown 11/09/2024 10:02 AM EDT 11/09/2024 10:02 AM EDT us Norma Gutierrez MD LAB BLOOD ORDERABLES Final Result [facility] [address] [place] [address] [phone] documented in this encounter Visit Diagnoses Diagnosis Normocytic anemia- Primary Unspecified anemia documented in this encounter Additional Health Concerns Assessment Noted Time PHQ-9 Depression Total Score: 6 07/12/19 25 9:14 AM EDT documented as of this encounter Care Teams Regulatory Affairs Director Relationship Specialty Start Date End Date Norma Gutierrez MD [address] [place] [address] PCP - General Internal Medicine 02/29/16 documented as of this encounter
--- OUTSIDE RECORDS SUMMARY | 2025-01-04 12:19 | XMS_ITS | Encounter Summary ---
Author Organization [employer] Address [address] [facility] [address] [address] [place] [address] Care Team Providers Care Awnings Mechanic Name Role Phone Norma Gutierrez MD Primary Care Provider [phone] Encounter Details Date Type Department Care Team ([facility] st Contact Info) Description 11/10/2024 Orders Only [facility] CHC MED & PEDS [address] [place], [place] [phone] Norma Gutierrez MD [address] [place] [address] Social History Tobacco Use Types Packs/Day Years [...] Upcoming Encounters Date Type Department Care Team ([facility] st Contact Info) Description 02/02/2025 11:30 AM EST Office Visit [facility] MED & PEDS [address] [place] [address] Norma Gutierrez MD [address] [place] [address] documented as of this encounter Visit Diagnoses Not on filedocumented in this encounter Additional Health Concerns Assessment Noted Time PHQ-9 Depression Total Score: 3 10/12/19 25 9:54 AM EDT documented as of this encounter Care Teams Awnings Mechanic Relationship Specialty Start Date End Date Norma Gutierrez MD [address] [place] [address] PCP - General Internal Medicine 02/29/16 documented as of this encounter
--- OUTSIDE RECORDS SUMMARY | 2025-01-04 12:19 | XMS_ITS | Encounter Summary ---
Author Organization [employer] Address [address] [facility] [address] [place] [address] Care Team Providers Care Circuit Board Repair Technician Name Role Phone Norma Gutierrez MD Primary Care Provider [phone] Encounter Details Date Type Department Care Team (Latest Contact Info) Description 01/03/2025 Travel Social History Tobacco Use Types Packs/Day [...] Description 02/02/2025 11:30 AM EST Office Visit [facility] MED & PEDS [address] [place] [address] Norma Gutierrez MD [address] [place] [address] documented as of this encounter Visit Diagnoses Not on filedocumented in this encounter Additional Health Concerns Assessment Noted Time PHQ-9 Depression Total Score: 3 10/12/19 25 9:54 AM EDT documented as of this encounter Care Teams Circuit Board Repair Technician Relationship Specialty Start Date End Date Norma Gutierrez MD [address] [place] [address] PCP - General Internal Medicine 02/29/16 documented as of this encounter
--- OUTSIDE RECORDS SUMMARY | 2025-01-04 12:19 | XMS_ITS | Encounter Summary ---
Author Organization [employer] Address [address] [facility] 7t [place] [address] Care Team Providers Care General Claims Agent Name Role Phone Norma Gutierrez MD Primary Care Provider [phone] Reason for Visit * Reason Onset Date Comments Reschedule 08/21/2023 Encounter Details Date Type Department Care Team ([facility] st Contact Info) Description 08/21/2023 Telephone [facility] CHC MED & PEDS [address] [place], [place] [phone] Norma Gutierrez MD [address] [place] [address] Reschedule Social History Tobacco Use Types Packs/Day [...] 08/24 PAP appointment. Please contact pt at [phone] documented in this encounter Plan of Treatment Upcoming Encounters Date Type Department Care Team (Late st Contact Info) Description 02/02/2025 11:30 AM EST Office Visit [facility] MED & PEDS [address] [place] [address] Norma Gutierrez MD [address] [place] [address] documented as of this encounter Visit Diagnoses Not on filedocumented in this encounter Care Teams General Claims Agent Relationship Specialty Start Date End Date Norma Gutierrez MD [address] [place] [address] PCP - General Internal Medicine 02/29/16 documented as of this encounter
--- OUTSIDE RECORDS SUMMARY | 2025-01-04 12:19 | XMS_ITS | Encounter Summary ---
Author Organization [employer] Address [address] [facility] 7t [place] [address] Care Team Providers Care Clay Artisan Name Role Phone Norma Gutierrez MD Primary Care Provider [phone] Encounter Details Date Type Department Care Team ([facility] Contact Info) Description 12/14/2024 Orders Only [facility] [address] [place] [address] Provider, MD Moise Social History Tobacco Use [...] Upcoming Encounters Date Type Department Care Team ([facility] st Contact Info) Description 02/02/2025 11:30 AM EST Office Visit [facility] CHC MED & PEDS [address] [place] [address] Norma Gutierrez MD [address] [place] [address] documented as of this encounter Procedures Procedure Name Priority Date/Time Associated Diagnosis Comments XR CHEST 2 VIEWS Routine 12/13/2024 10:[address] CHEST ANGIO W AND WO IV CONTRAST Routine 12/13/2024 10:27 AM EDT ECG 12-LEAD Routine 12/13/2024 9:48 AM EDT documented in this encounter Results * XR Chest 2 Views (12/13/2024 10:35 AM EDT) Anatomical Region Laterality Modality Chest Radiographic Kamini ging Historical Provider IMG XR PROCEDURES Final R esult * CT CHEST ANGIO W AND WO IV CONTRAST (12/13/2024 10:27 AM EDT) Anatomical Region Laterality Modality Computed Tomogra phy Historical Provider IMG CT PROCEDURES Final R esult * ECG 12 lead (12/13/2024 9:48 AM EDT) Historical Provider ECG ORDERABLES Final Res ult documented in this encounter Visit Diagnoses Not on filedocumented in this encounter Additional Health Concerns Assessment Noted Time PHQ-9 Depression Total Score: 3 10/12/19 25 9:54 AM EDT documented as of this encounter Care Teams Clay Artisan Relationship Specialty Start Date End Date Norma Gutierrez MD [address] [place] [address] PCP - General Internal Medicine 02/29/16 documented as of this encounter
--- OUTSIDE RECORDS SUMMARY | 2025-01-04 12:19 | XMS_ITS | Encounter Summary ---
Author Organization [employer] Address [address] [facility] 7t [place] [address] Care Team Providers Care Power Shear Operator Name Role Phone Norma Gutierrez MD Primary Care Provider [phone] Encounter Details Date Type Department Care Team ([facility] st Contact Info) Description 11/22/2024 Orders Only [facility] [address] [place] [address] Provider, MD Moise Social History Tobacco Use [...] your housing situation today? I have valentina layo 07/11/[address] you li [...] Upcoming Encounters Date Type Department Care Team ([facility] st Contact Info) Description 02/02/2025 11:30 AM EST Office Visit [facility] CHC MED & PEDS [address] [place] [address] Norma Gutierrez MD [address] [place], [place] [phone] documented as of this encounter Procedures Procedure [...] documented as of this encounter Care Teams Power Shear Operator Relationship Specialty Start Date End Date Norma Gutierrez MD [address] [place] [address] PCP - General Internal Medicine 02/29/16 documented as of this encounter
--- OUTSIDE RECORDS SUMMARY | 2025-01-04 12:19 | XMS_ITS | Encounter Summary ---
Author Organization [employer] Address [address] [facility] 7t [place] [address] Care Team Providers Care Oil Inspector Name Role Phone Norma Gutierrez MD Primary Care Provider [phone] Reason for Visit * Reason Onset Date Comments Med Refill 12/22/2024 Encounter Details Date Type Department Care Team ([facility] st Contact Info) Description 12/22/2024 Refill [facility] CHC MED & PEDS [address] [place], [place] [phone] Norma Gutierrez MD [address] [place] [address] Class 1 obesity due to excess calories [...] 11:30 AM EST Office Visit [facility] MED & PEDS [address] [place] [address] Norma Gutierrez MD [address] [place] [address] documented as of this encounter Visit Diagnoses Diagnosis Class 1 obesity due to excess calories with serious comorbidity and body mass index (BMI) of 30.0 to 30.9 in adult documented in this encounter Additional Health Concerns Assessment Noted Time PHQ-9 Depression Total Score: 3 10/12/19 25 9:54 AM EDT documented as of this encounter Care Teams Oil Inspector Relationship Specialty Start Date End Date Norma Gutierrez MD [address] [place] [address] PCP - General Internal Medicine 02/29/16 documented as of this encounter
--- OUTSIDE RECORDS SUMMARY | 2025-01-04 12:19 | XMS_ITS | Encounter Summary ---
Author Organization [employer] Address [address] [facility] 7t [place] [address] Care Team Providers Care Can Piler Name Role Phone Norma Gutierrez MD Primary Care Provider [phone] Encounter Details Date Type Department Care Team ([facility] st Contact Info) Description 10/25/2024 Orders Only [facility] [address] [place] [address] Provider, MD Moise Social History Tobacco Use [...] Description 02/02/2025 11:30 AM EST Office Visit [facility] CHC MED & PEDS [address] [place] [address] Norma Gutierrez MD [address] [place] [address] documented as of this encounter Procedures Procedure [...] documented as of this encounter Care Teams Can Piler Relationship Specialty Start Date End Date Norma Gutierrez MD [address] [place] [address] PCP - General Internal Medicine 02/29/16 documented as of this encounter
--- OUTSIDE RECORDS SUMMARY | 2025-01-04 12:19 | XMS_ITS | Encounter Summary ---
Author Organization [employer] Address [address] [facility] [address] [place] [address] Care Team Providers Care Coater Helper Name Role Phone Norma Gutierrez MD Primary Care Provider [phone] Encounter Details Date Type Department Care Team ([facility] st Contact Info) Description 12/09/2024 Results Follow-Up [facility] CHC MED & PEDS [address] [place], [place] [phone] Nohemi Cee RN [address] [place] [address] CBC auto differential, TSH W/Reflex to FT4 Social History Tobacco Use Types Packs/Day Years [...] ([facility] st Contact Info) Description 02/02/2025 11:30 AM EST Office Visit [facility] CHC MED & PEDS [address] [place] [address] Norma Gutierrez MD [address] [place] [address] documented as of this encounter Visit Diagnoses Not on filedocumented in this encounter Additional Health Concerns Assessment Noted Time PHQ-9 Depression Total Score: 3 10/12/19 25 9:54 AM EDT documented as of this encounter Care Teams Coater Helper Relationship Specialty Start Date End Date Norma Gutierrez MD [address] [place] [address] PCP - General Internal Medicine 02/29/16 documented as of this encounter
--- OUTSIDE RECORDS SUMMARY | 2025-01-04 12:19 | XMS_ITS | Encounter Summary ---
Author Organization [employer] Address [address] [facility] [address] [place] [address] Care Team Providers Care Accounts Payables Clerk Name Role Phone Norma Gutierrez MD Primary Care Provider [phone] Encounter Details Date Type Department Care Team ([facility] st Contact Info) Description 10/12/2024 Orders Only [facility] CHC MED & PEDS [address] [place], [place] [phone] Norma Gutierrez MD [address] [place] [address] Class 1 obesity due to excess calories [...] Description 02/02/2025 11:30 AM EST Office Visit [facility] MED & PEDS [address] [place] [address] Norma Gutierrez MD [address] [place] [address] documented as of this encounter Visit Diagnoses Diagnosis Class 1 obesity due to excess calories with serious comorbidity and body mass index (BMI) of 30.0 to 30.9 in adult- Primary documented in this encounter Additional Health Concerns Assessment Noted Time PHQ-9 Depression Total Score: 3 10/12/19 25 9:54 AM EDT documented as of this encounter Care Teams Accounts Payables Clerk Relationship Specialty Start Date End Date Norma Gutierrez MD [address] [place] [address] PCP - General Internal Medicine 02/29/16 documented as of this encounter
--- OUTSIDE RECORDS SUMMARY | 2025-01-04 12:20 | XMS_ITS | Clinical Summary ---
Author Organization [employer] Address [address] [facility] [address] [place] [address] Care Team Providers Care Neurodiagnostic Technologist Name Role Phone Norma Gutierrez MD Primary Care Provider [phone] Allergies No known active allergies Medications * This document contains information received from the source organization and may not represent a complete record from that organization. thiamine (Vitamin B-1) 50 MG tablet Take 50 mg by mouth in the morning. 11/12/19 22 Active 27-1 MG tablet Take 1 tablet by mouth in the morning. 03/10/19 23 Active norethindrone (Micronor) 0.35 MG tablet Take 1 tablet by mouth Once per day. 06/12/19 24 Active albuterol (2.5 MG/3ML) 0.083% nebulizer solutionIndicat ions:Cough, unspecified type,Moderate persistent asthma with acute exacerbation Take 3 mL (2.5 mg) by nebulization every 4 (four) hours if needed for wheezing. 75 mL 07/12/19 25 2025 Active budesonide-form oterol (Symbicort) 80-4.5 MCG/ACT inhalerIndicati ons:Moderate persistent asthma with acute exacerbation Inhale 2 puffs in the morning and at bedtime. Rinse mouth with water after use to reduce aftertaste and incidence of candidiasis. Do not swallow. 30.6 each 07/12/19 25 Active Ventolin HFA 108 (90 Base) MCG/ACT inhaler INHALE 2 PUFF DIRECTED FOUR TIMES A DAY NEEDED 18 g 5 08/09/19 25 Active nystatin (Nystop) 491091 UNIT/GM powderIndicatio ns:Intertrigo Apply topically 2 times daily. 60 g 1 08/25/19 25 2025 Active Phentermine-Top iramate ER 3.75-23 MG capsule sustained-relea se 24 hrIndications:C lass 1 obesity due to excess calories with serious comorbidity and body mass index (BMI) of 30.0 to 30.9 in adult One Capsule daily 14 capsule 10/13/19 25 Active diphenhydrAMINE (BENADryl) 25 MG tabletIndicatio ns:Acute exacerbation of asthma with allergic rhinitis Take 1 tablet (25 mg) by mouth if needed at bedtime (wheezing). 30 tablet 11/03/19 25 Active ferrous sulfate (Fe Tabs) 325 (65 Fe) MG EC tabletIndicatio ns:Normocytic anemia Take 1 tablet (325 mg) by mouth with breakfast, with lunch, and with evening meal. Do not crush, chew, or split. 90 tablet 3 11/15/19 25 2025 Active tiZANidine (Zanaflex) 4 MG tabletIndicatio ns:Acute pain of right shoulder Take 1 tablet (4 mg) by mouth every 6 (six) hours if needed for muscle spasms for up to 10 days. 30 tablet 12/09/19 25 Active phentermine 15 MG capsuleIndicati ons:Class 1 obesity due to excess calories with serious comorbidity and body mass index (BMI) of 30.0 to 30.9 in adult TAKE 1 CAPSULE BY MOUTH BEFORE BREAKFAST 30 capsule 12/24/19 25 Active busPIRone (Buspar) 5 MG tabletIndicatio ns:Anxiety Take 1 tablet (5 mg) by mouth 2 times daily. 60 tablet 11 01/04/20 25 2025 Active phentermine 15 MG capsuleIndicati ons:Class 1 obesity due to excess calories with serious comorbidity and body mass index (BMI) of 30.0 to 30.9 in adult TAKE 1 CAPSULE BY MOUTH BEFORE BREAKFAST 30 capsule 11/11/19 25 2024 Discontinued Active Problems Problem Noted Date Diagnosed [...] her body to adapt. -Pt was prescribed crhbech-symegafmkyhfe-xdbmkoov (Excedrin Migraine) 250-250-65 MG tablet -Pt requested [...] has positive support from her family and religion community. Protective factors identified are her children [...] Encounters Date Type Department Care Team Description 01/03/2025 3:15 PM EST Office Visit [facility] [address] [place] [address] Norma Gutierrez MD Anxiety (Primary Dx); Palpitations 01/03/2025 Travel 12/28/2024 Telephone [facility] [address] [place] [address] Norma Gutierrez MD no show 12/22/2024 Refill [facility] [address] [place] [address] Norma Gutierrez MD Class 1 obesity due to excess calories with serious comorbidity and body mass index (BMI) of 30.0 to 30.9 in adult 12/21/2024 Refill [facility] [address] [place] [address] Norma Gutierrez MD Class 1 obesity due to excess calories with serious comorbidity and body mass index (BMI) of 30.0 to 30.9 in adult 12/19/2024 Telephone [facility] [address] [place] [address] Norma Gutierrez MD ER Follow-up 12/14/2024 Orders Only [facility] Information Management [address] [place] [address] [phone] ProviderMoise MD 12/09/2024 Results Follow-Up [facility] [address] [place] [address] Nohemi Cee, ABRAHAM CBC auto differential, TSH W/Reflex to FT4 12/08/2024 9:00 AM EDT Office Visit [facility] [address] [place] [address] Norma Gutierrez MD Palpitations (Primary Dx); Acute pain of right shoulder; Encounter for immunization 12/08/2024 Travel 12/07/2024 Telephone [facility] [address] [place] [address] Norma Gutierrez MD Chart prep 12/01/2024 Telephone [facility] [address] [place] [address] Norma Gutierrez MD Results 11/22/2024 Orders Only [facility] [address] [place] [address] Moise Benitez MD 11/14/2024 Telephone [facility] [address] [place] [address] Norma Gutierrez MD Medication Question 11/11/2024 Results Follow-Up [facility] [address] [place] [address] Adrianne Raymundo RN CBC auto differential 11/10/2024 Orders Only [facility] [address] [place] [phone] Norma Gutierrez MD 11/09/2024 Refill [facility] [address] [place] [address] Norma Gutierrez MD Class 1 obesity due to excess calories with serious comorbidity and body mass index (BMI) of 30.0 to 30.9 in adult 11/02/2024 11:15 AM EDT Office Visit [facility] [address] [place] [address] Norma Gutierrez MD Normocytic anemia (Primary Dx); Acute exacerbation of asthma with allergic rhinitis; Syncope, unspecified syncope type 11/02/2024 Travel 11/01/2024 Telephone [facility] [address] [place] [address] Norma Gutierrez MD Chart Prep 10/25/2024 Telephone [facility] [address] [place] [address] Norma Gutierrez MD ER Follow-up 10/25/2024 Orders Only [facility] [address] [place] [address] Moise Benitez MD 10/13/2024 Telephone [facility] [address] [place] [address] Norma Gutierrez MD Medication Question 10/12/2024 Orders Only [facility] [address] [place] [address] Norma Gutierrez MD Class 1 obesity due to excess calories with serious comorbidity and body mass index (BMI) of 30.0 to 30.9 in adult (Primary Dx) 10/11/2024 9:30 AM EDT Office Visit [facility] [address] [place] [address] Norma Gutierrez MD Annual physical exam (Primary Dx); Acute pain of right shoulder; Normocytic anemia; Class 1 obesity due to excess calories with serious comorbidity and body mass index (BMI) of 30.0 to 30.9 in adult 10/11/2024 Telephone [facility] [address] [place] [address] Norma Gutierrez MD Prior Authorization 10/11/2024 Travel from Last 3 Months Immunizations Immunization Administration Dates Next Due HPV, Quadrivalent 01/09/2011,09/06/2010,06/26/19 11 Influenza injectable quadriv alent IIV4 with preservative 01/03/2019,02/09/2015 Influenza injectable quadriv alent preservative free 12/11/2020 Influenza, IIV3, injectable 11/14/2013, 5 Influenza, Split (incl. sundeep fied surface antigen) 01/30/2012 Influenza, seasonal, injecta ble, preservative free 12/08/2024,01/16/2024,12/19/2004 MMR 01/03/2019,06/25/2010 Meningococcal MPSV4 12/19/2004 TD (adult), [...] Sign Reading Time Taken Comments Blood Pressure 125/74 12/08/2024 9:04 AM EDT Pulse 75 01/03/2025 2:53 PM EST Temperature 36.8 C (98.2 F) 11/02/2024 11:11 AM EDT Respiratory Rate 20 01/03/2025 2:53 PM EST Oxygen Saturation 99% 01/03/2025 2:53 PM EST Inhaled Oxygen Concentration - - Weight 78.5 kg (173 lb) 01/03/2025 2:53 PM EST Height 161 cm (5' 3.39 ) 01/03/2025 2:53 PM EST Body Mass Index 30.27 01/03/2025 2:53 PM EST Plan of Treatment Upcoming Encounters Date Type Department Care Team (Late st Contact Info) Description 02/02/2025 11:30 AM EST Office Visit [facility] [address] [place] [address] Norma Gutierrez MD [address] [place] [address] Health Maintenance Due Date Last Done Comments Family Planning (PISQ) 2005 Hepatitis B Vaccines (1 of 3 - 19+ 3-dose series) 2009 Pneumococcal Vaccine: Pediatrics (0 to 5 Years) and At-Risk Patients (6 to 49) Years (1 of 2 - PCV) 2009 COVID-19 Vaccine ( season) 2024 07/12/2021, 01/18/2021, 12/28/2020 Alcohol/Substance Use Screening 10/11/2025 10/11/2024 Depression Screening 10/11/2025 10/11/2024, 10/12/19 25 SDOH Screening 10/11/2025 10/11/2024 Disability Screening 12/08/2025 12/08/2024 Tobacco Screening 01/03/2026 01/03/2025 Cervical Cancer Screening 05/01/2027 HPV/Cotest 05/01/2027 Pap [...] complete this topic HPV Vaccines Completed 01/09/2011, 070 09/2010, 06/25/2010 HIV Screening Completed 02/17/2019 Hepatitis C Screening Completed 07/11/2024 Influenza Vaccine Completed 12/08/2024, , 12/11/2020, Additional history exists HIB Vaccines Aged Out [...] Comments XR CHEST 2 VIEWS Routine 12/13/2024 10:[address] CHEST ANGIO W AND WO IV CONTRAST Routine 12/13/2024 10:27 AM EDT ECG 12-LEAD Routine 12/13/2024 9:48 AM EDT TSH W/REFLEX TO FT4 Routine 12/08/2024 9 :58 AM EDT Palpitations CBC WITH AUTO DIFFERENTIAL Routine 12/08/2024 9:58 AM EDT Palpitations VASC US ABDOMINAL/PELVIC DUPLEX COMPLETE Routine 11/21/2024 2:07 PM EDT US PELVIS NON OB TRANSABDOMINAL AND TRANSVAGINAL COMPLETE WITH DOPPLEE Routine 11/21/2024 9:25 AM EDT CBC WITH AUTO DIFFERENTIAL Routine 11/09/2024 10:02 AM EDT Normocytic anemia ECG 12-LEAD Routine 10/23/2024 12:55 PM EDT HEPATITIS C VIRAL RNA, QUANTITATIVE, [...] Recently Relevant to Health Maintenance Results * XR Chest 2 Views (12/13/2024 10:35 AM EDT) Anatomical Region Laterality Modality Chest Radiographic Kamini ging Historical Provider IMG XR PROCEDURES Final R esult * CT CHEST ANGIO W AND WO IV CONTRAST (12/13/2024 10:27 AM EDT) Anatomical Region Laterality Modality Computed Tomogra phy Historical Provider IMG CT PROCEDURES Final R esult * ECG 12 lead (12/13/2024 9:48 AM EDT) Only the most recent of2 resultswithin the time period is included. Historical Provider ECG ORDERABLES Final Res ult * TSH W/Reflex to FT4 (12/08/2024 9:58 AM EDT) Pathologist [facility] TSH reflex Free T4 1.36 0.32 - 4.0 uIU/mL [facility] Blood Venous blood specimen / Unknown 12/08/2024 9:58 AM EDT 12/08/2024 2:26 PM EDT Norma Gutierrez MD LAB BLOOD ORDERABLES Final Result [facility] [address] [place] [phone] * (ABNORMAL) CBC auto differential (12/08/2024 9:58 AM EDT) Only the most recent of2 resultswithin the time period is included. White Blood Count 5.6 4.8 - 10.8 X10*3/uL [facility] Red Blood Count 3.96(L) 4.20 - 5.50 X10*6/uL [facility] Hemoglobin 9.7(L) 12.0 - 16.0 g/dl [facility] Hematocrit 32.2(L) 37.0 - 47.0 % [facility] Mean Corpuscular Volume 81.3 80.0 - 98.0 fL [facility] Mean Corpuscular Hemoglobin 24.5(L) 27.0 - 33.0 pg [facility] Mean Corpuscular HGB Conc 30.1(L) 31.0 - 35.0 g/dl [facility] Red Cell Distribution Width 19.9(H) 11.0 - 16.0 % [facility] Platelet Count 410(H) 160 - 400 X10*3/uL [facility] Mean Platelet Volume 11.5 9.4 - 12.3 fL [facility] Neutrophils Percent Auto 50.0 45 - 73 % [facility] Imm Gran Pct Auto 0.4 0.0 - 0.4 % [facility] Lymphocytes Percent Auto 32.3 20 - 40 % [facility] Monocytes Percent Auto 8.6 2 - 11 % [facility] Eosinophils Percent Auto 7.3(H) 0 - 4 % [facility] Basophils Percent Auto 1.4 0 - 2 % [facility] NRBC Pct Auto 0.0 0.0 - 0.2 /100WBC [facility] Neutrophils Absolute Auto 2.8 2.0 - 8.3 x10*3/uL [facility] Imm Gran Abs Auto 0.02 0.00 - 0.03 X10*3/uL [facility] Lymphocytes Absolute Auto 1.8 1.2 - 4.9 X10*3/uL [facility] Monocytes Absolute Auto 0.5 0.1 - 1.2 X10*3/uL [facility] Eosinophils Absolute Auto 0.4 0.0 - 0.4 X10*3/uL [facility] Basophils Absolute Auto 0.1 0.0 - 0.2 X10*3/uL [facility] NRBC Abs Auto 0.000 0.0 - 0.012 X10*3/uL [facility] Blood Venous blood specimen / Unknown 12/08/2024 9:58 AM EDT 12/08/2024 2:26 PM EDT us Norma Gutierrez MD LAB BLOOD ORDERABLES Final Result Performing Organization Address City/[facility]/ZIP Co de Phone Number [facility] [address] [place] [address] [phone] * VASC US Abdominal pelvic Duplex Complete (11/21/2024 2:07 PM EDT) Historical Provider CV VASCULAR PROCEDURES Fi nal Result * US PELVIS NON OB TRANSABDOMINAL AND TRANSVAGINAL COMPLETE WITH DOPPLER LIMITED (11/21/2024 9:25 AM EDT) Anatomical Region Laterality Modality Pelvis Ultrasound Historical Provider IMG US PROCEDURES Final R esult * Hepatitis C Viral RNA, Quantitative, Real-Time PCR (07/11/2024 9:26 AM EDT) Hepatitis C Viral Load <15 NOT DETECTED NOT DETECTED IU/mL [facility] HCV Log PCR <1.18 NOT DETECTED NOT DETECTED Log IU/mL [facility] Comment:For additional infor mation, please refer [email or web address].[email or web address]/faq/HNG32e0(This link is being provided for informational/educational purposes only.)THIS TEST WAS PERFORMED AT:[id number] [place] [phone] ANTONIO WICK MD Blood Venous blood specimen / Unknown 07/11/2024 9:26 AM EDT 07/11/2024 2:10 PM EDT Norma Gutierrez MD LAB BLOOD ORDERABLES Final Result Performing Organization Address City/[facility]/ZIP Co de Phone Number [facility] [address] [place] [phone] * Lipid Panel, Standard (07/11/2024 9:26 AM EDT) Triglycerides 66 <150 mg/dL [facility] Comment:Desirable Triglyceri de: less than 150 mg/dLBorderline High Triglyceride 150-199 mg/dLHigh Triglyceride: 200-499 mg/dLVery High Triglyceride: greater than or equal to 5OO mg/dL Cholesterol 144 <200 mg/dL [facility] Comment:Desirable Cholestero l: less than 200 mg/dLBorderline High Cholesterol: 200-239 mg/dLHigh Cholesterol: greater than 239 mg/dL LDL Cholesterol Calculated 84 <100 mg/dL [facility] Comment:Desirable LDL: less than 100 mg/dLNear Optimal/Above Optimal LDL: 110- 129 mg/dLBorderline High LDL: 130-159 mg/dLHigh LDL: 160-189 mg/dLVery High LDL: greater than or equal to 190 mg/dL HDL Cholesterol 47 >40 mg/dL [facility] Comment:Desirable HDL: great er than 40 mg/dL Note: This HDL assay may give artificially low results in patients with liver disease. Blood Venous blood specimen / Unknown 07/11/2024 9:26 AM EDT 07/11/2024 2:10 PM EDT Norma Gutierrez MD LAB BLOOD ORDERABLES Final Result [facility] [address] [place] [phone] [phone] * HM PAP/HPV (04/30/2022 2:50 PM [...] of detection of this assay. [employer] HIV Ag/Ab Combo assay result and supplemental assay results should be interpreted in conjunction with the patient's clinical presentation, history and other laboratory results. If the results are inconsistent with clinical evidence, additional testing is suggested to confirm the result. 02/17/2019 10:0 8 AM EST us Norma Gutierrez MD HISTORICAL/NON ORDERABLE VERONICA OBRIEN Final Result [facility] [employer] Formerly [facility] Anywhere [address] from Last 3 Months or Most Recently Relevant to Health Maintenance Insurance [facility] Member Subscriber Plan / Payer (Ef fective 2024-Present) Name:Omid Lundy Relation to Subscriber:Self Name:Omid Lundy Payer ID:Not on file Group ID:Not on file Type:Medicaid Address: [facility] [id number] [place] [phone] [place] [address] Care Teams Neurodiagnostic Technologist Relationship Specialty Start Date End Date Norma Gutierrez MD [address] [place] [phone] PCP - General Internal Medicine 02/29/16
--- OUTSIDE RECORDS SUMMARY | 2025-01-04 12:20 | XMS_ITS | Encounter Summary ---
Author Organization [employer] Address [address] [place] [address] Care Team Providers Care Supervisor Green End Department Name Role Phone Norma Gutierrez MD Primary Care Provider [phone] Encounter Details Date Type Department Care Team ([facility] st Contact Info) Description 05/24/2024 Orders Only [facility] [address] [place] [address] Provider, MD Moise Social History Tobacco Use [...] Description 02/02/2025 11:30 AM EST Office Visit [facility] [address] [place] [address] Norma Gutierrez MD [address] [place] [address] documented as of this encounter Procedures Procedure Name Priority Date/Time Associated Diagnosis Comments HM PAP/HPV Routine 04/30/2022 2:50 PM EST documented in this encounter Results * HM PAP/HPV (04/30/2022 2:50 PM EST) Historical Provider HEALTH MAINTENANCE Final Result documented in this encounter Visit Diagnoses Not on filedocumented in this encounter Care Teams Supervisor Green End Department Relationship Specialty Start Date End Date Norma Gutierrez MD [address] [place] [address] PCP - General Internal Medicine 02/29/16 documented as of this encounter
== END 2025-01-04 10:34 | disposition home or self-care (01) ==
LOC: HO.HOSX 10:33
PROVIDERS: Visit Provider Physician Assistant
DX: S46.002A Unspecified injury of muscle(s) and tendon(s) of the rotator cuff of left shoulder, initial encounter (principal); M77.8 Other enthesopathies, not elsewhere classified; X58.XXXA Exposure to other specified factors, initial encounter
CPT/HCPCS: 73030

== ENCOUNTER 2025-01-04 13:26 | Outpatient (AMB) | payer OTHER, MEDICAID, SELFPAY ==
--- NOTE | 2025-01-04 13:37 | A.OFFVIS_ITS ---
Intake Visit Reasons: OV- LT shoulder pain Intake Note: Omid is a 34 year old right hand dominant female who presents today as an established patient, new problem visit to evaluate her left shoulder pain. Patient reports her pain has been present for weeks, denies injury. Her pain is getting worse. Limited ROM. States difficulty with sleeping on her shoulder. No previous treatment for her left shoulder. She was recently seen for her right shoulder and an MRI ordered, states little improvement with pain after having a cortisone injection. Allergies No Known Allergies (No Known Allergies*) Allergy (Verified 01/04/25 13:44) Medication List - Last Reconciled 01/04/25 by Gato Barlow PA-C bupropion HCl 100 mg PO DAILY buspirone 5 mg PO BID celecoxib (Celebrex) 200 mg PO BID 30 days naproxen 500 mg PO BID 30 days norethindrone ac-eth estradiol 1-5 mg-mcg 2 tabs PO DAILY phentermine 15 mg PO DAILY sennosides (senna) 17.2 mg (2 x 8.6 mg) PO BEDTIME PRN HPI HPI OV- LT shoulder pain: Details: 34-year-old female returns to the office today for ongoing pain in the left shoulder. She denies specific injury but states the pain is worse with activities such as reaching or sleeping at night. She is unable to have steroid injections due to a history of menorrhagia with injections. She is scheduled for an MRI of the right shoulder on January 12 due to a history of calcific tendonitis found on previous imaging. She had a previous CT scan of her chest which did show some calcification of the soft tissues of the left shoulder. [facility] Medical History Anxiety Asthma Surgical History History of repair of hiatal hernia History of sleeve gastrectomy H/O ovarian cystectomy S/P lumpectomy, right breast History of laparoscopic appendectomy Family History (Updated 11/18/24 @ 13:25 by Osmin Drake) Father No problems noted. Mother HTN (hypertension) Brother No problems noted. Brother No problems noted. Sister No problems noted. Daughter No problems noted. Maternal Grandfather Stomach cancer Maternal Grandmother Throat cancer Social History Household Members: Spouse and Children Alcohol intake: never Patient Tobacco Use Status: Never used Tobacco service: No Current occupational status: employed and student Current occupation: sales coach, right hand dominant Review of Systems Const All systems reviewed & are unremarkable except as noted in HPI and below Physical Exam Extrem Other: Left shoulder full range of motion in all planes. She does have pain with internal rotation and tenderness over the proximal biceps into the deltoid region. She does have pain with activation of the rotator cuff with positive Royal and is neurovascularly intact. Results Reviewed Results Reviewed: X-rays of the left shoulder obtained in the office today and reviewed by me show type 2 acromion Assessment & Plan Assessment & Plan (1) Left shoulder tendonitis: Code(s): M77.8 - Other enthesopathies, not elsewhere classified Category: Medical Plan: I discussed with the patient the extent of her imaging findings along with her symptoms on exam and we would like to order an MRI of the left shoulder to further evaluate the integrity of the rotator cuff. Once this is complete I will contact her to discuss the next step in her treatment. She is content with this plan. Orders: Orders MR shoulder LT wo con Today S46.009A - Unspecified injury of muscle(s) and tendon(s) of the rotator cuff of unspecified shoulder, initial encounter Medications: New celecoxib (Celebrex) 200 mg PO BID 60 caps 3RF 30 days Coding Level of Care Code Est Pt Level 3 (64118) Complex EM visit Add On G2211 Diagnoses Left shoulder tendonitis M77.8
== END 2025-01-04 14:25 | disposition home or self-care (01) ==
LOC: HO.HOS 13:27
PROVIDERS: Visit Provider Physician Assistant
DX: M25.512 Pain in left shoulder (principal); M77.8 Other enthesopathies, not elsewhere classified
CPT/HCPCS: 99214; G2211

== ENCOUNTER → 2025-01-04 13:30 | Outpatient (BNV) | payer OTHER, MEDICAID, SELFPAY | PROVIDERS: Visit Provider Radiology Diagnostic Radiology | DX: M25.512 Pain in left shoulder (principal) | CPT/HCPCS: 73030 ==

== ENCOUNTER 2025-01-12 09:00 | Outpatient (RCR) | payer OTHER, MEDICAID, SELFPAY ==
[2024-11-23 08:29] VITALS: BP 128/83; PULSE 84; RESP 16; TEMP 37.1; O2SAT 100
[2024-11-30 08:45] VITALS: BP 116/74; PULSE 76; RESP 16; TEMP 36.6; O2SAT 100
[2024-12-06 09:09] VITALS: BP 114/77; PULSE 87; RESP 18
[2024-12-14 09:34] VITALS: BP 127/86; PULSE 66; RESP 16; TEMP 36.7; O2SAT 100
[2024-12-14 10:09] LABS: Hematocrit 32.4 % (37.0-47.0); Hemoglobin 10.2 g/dl (12.0-16.0); Mean Corpuscular HGB Conc 31.5 g/dl (31.0-35.0); Mean Corpuscular Hemoglobin 25.4 pg (27.0-33.0); Mean Corpuscular Volume 80.8 fL (80.0-98.0); NRBC Abs Auto 0.000 X10*3/uL (0.0-0.012); NRBC Pct Auto 0.0 /100WBC (0.0-0.2); Platelet Count 310 X10*3/uL (160-400); Red Blood Count 4.01 X10*6/uL (4.20-5.50); White Blood Count 4.8 X10*3/uL (4.8-10.8)
[2024-12-14 10:50] LABS: Ferritin 157 ng/mL (10-122)
[2024-12-21 09:04] VITALS: BP 142/96; PULSE 79; RESP 16; TEMP 36.7; O2SAT 100
[2024-12-30 10:29] VITALS: BP 138/96; PULSE 69; RESP 16; TEMP 36.8; O2SAT 98
[2025-01-04 09:07] VITALS: BP 144/91; PULSE 80; RESP 18; TEMP 36.6
[2025-01-12 09:03] VITALS: BP 131/91; PULSE 96; RESP 16; TEMP 36.9; O2SAT 100
[2025-01-12 09:27] LABS: Hematocrit 39.0 % (37.0-47.0); Hemoglobin 12.4 g/dl (12.0-16.0); Mean Corpuscular HGB Conc 31.8 g/dl (31.0-35.0); Mean Corpuscular Hemoglobin 26.7 pg (27.0-33.0); Mean Corpuscular Volume 83.9 fL (80.0-98.0); NRBC Abs Auto 0.000 X10*3/uL (0.0-0.012); NRBC Pct Auto 0.0 /100WBC (0.0-0.2); Platelet Count 306 X10*3/uL (160-400); Red Blood Count 4.65 X10*6/uL (4.20-5.50); White Blood Count 5.8 X10*3/uL (4.8-10.8)
[2025-01-12 09:52] LABS: Ferritin 326 ng/mL (10-122)
== END 2025-01-12 10:19 | disposition home or self-care (01) ==
LOC: HO.INF 09:00
PROVIDERS: Visit Provider Nurse Practitioner Family
DX: D50.9 Iron deficiency anemia, unspecified (principal)
CPT/HCPCS: 36415; 82728; 85027; 96365; J1756

== ENCOUNTER → 2025-01-27 18:46 | Outpatient (BNV) | payer OTHER, MEDICAID, SELFPAY | PROVIDERS: PCP Internal Medicine; Visit Provider Radiology Diagnostic Radiology | DX: M75.81 Other shoulder lesions, right shoulder (principal); M75.51 Bursitis of right shoulder | CPT/HCPCS: 73221 ==

== ENCOUNTER 2025-01-27 18:48 | Outpatient (REF) | payer OTHER, MEDICAID, SELFPAY ==
--- NOTE | ~2025-01-27 | MR_ITS ---
CLINICAL HISTORY: M75.81 - Other shoulder lesions, right shoulder MR right shoulder without gadolinium Comparison: DX/SR - XR SHOULDER 2 OR MORE VIEWS LEFT - 01/04/25 13:30 EST CR - XR SHOULDER RT MIN 2V - 09/21/24 21:09 EDT Findings: No acute fracture or pathologic bone lesion. No significant degenerative changes. Type II acromion. A small amount of fluid is seen within the subacromial subdeltoid bursa. There is a small partial width full-thickness defect of the infraspinatus tendon associated with a subcortical bony defect measuring 6.4 mm. Calcific deposits related to calcific tendinitis are not identified and perhaps the changes are related to surgical intervention. The rotator cuff tendons are otherwise intact. The biceps tendons and anchor are unremarkable. The glenoid labrum is otherwise unremarkable. A Harjinder complex is noted. IMPRESSION: 1. Likely postsurgical changes related to removal of calcific tendonitis deposits as described above. Small full-thickness defect within the anterior aspect of the infraspinatus tendon. The calcific deposits are not identified. 2. Fluid is present within the subacromial subdeltoid bursa. 3. Harjinder complex. This document has been electronically signed by: Sukumar Sim MD on 01/30/2025 12:54:54
--- OUTSIDE RECORDS SUMMARY | 2025-01-27 18:50 | XMS_ITS | Clinical Summary ---
Author Organization [place] [address] Is[address] [facility] Building Address [address], [place] Phone Care Team Providers Care Enamel Pulverizer Name Role Phone Norma Gutierrez MD Primary Care Provider [phone] Allergies No known active allergies Medications albuterol HFA (ProAir HFA) 90 mcg/actuation inhaler Inhale 2 Puffs into the lungs every 6 hours as needed for Shortness of Breath. 8 Active norethindrone (AYGESTIN) 5 mg tablet TAKE 2 TABLETS BY MOUTH 1 TIME EACH DAY. 180 tablet 1 5 Active Active Problems Problem Noted Date [...] Encounters Date Type Department Care Team Description 12/13/2024 11:03 AM EDT - 12/13/2024 5:32 PM EDT [facility] Emergency [address] [place] [phone] Freeman Fields MD Chest pain, unspecified type (Primary Dx) Discharge Disposition: Home or Self Care 12/05/2024 Telephone Obstetrics and Gynecology - [address] [phone] Kaden Salgado CNM 11/21/2024 6:11 PM EDT - 11/21/2024 11:59 PM EDT Hospital Encounter Radiology Department - [address] [phone] Abnormal uterine bleeding (AUB); Blood loss anemia Discharge Disposition: Home or Self Care 11/15/2024 3:20 PM EDT Office Visit Obstetrics and Gynecology - [address] [phone] Maribel Frey PA Abnormal uterine bleeding (AUB) (Primary Dx); Blood loss anemia 11/14/2024 Telephone Obstetrics and Gynecology - [address] [phone] Mirna Booth CNM 11/13/2024 10:36 PM EDT - 11/13/2024 11:04 PM EDT [facility] Emergency [address] [place] [phone] Jocelyne Darby MD Muhoozi, Bannet, MD Episode [...] cyst removal OVARIAN CYST REMOVAL Right PROCEDURE: GA OVARIAN CYSTECTOMY UNI/BI OTHER SURGICAL HISTORY 2019 [...] 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 2022 Term 39w 5d 8h 50m 3175 g (112 oz) M Vag-S kareem crandall N Thien Pugh MD Delivery Location:[facility] Last Filed Vital Signs Vital Sign Reading Time Taken Comments Blood Pressure 132/85 12/13/2024 2:40 PM EDT Pulse 88 12/13/2024 2:40 PM EDT Temperature 36.4 C (97.5 F) 12/13/2024 10:06 AM EDT Respiratory Rate 16 12/13/2024 2:40 PM EDT Oxygen Saturation 99% 12/13/2024 2:40 PM EDT Inhaled Oxygen Concentration - - Weight 77.1 kg (170 lb) 12/13/2024 10:06 AM EDT Height 160 cm (5' 3 ) 12/13/2024 10:06 AM EDT Body Mass Index 30.11 12/13/2024 10:06 AM EDT Plan of Treatment Health Maintenance Due Date Last Done Comments Hepatitis B Vaccines (1 of 3 - 19+ 3-dose series) 2009 Pneumococcal Vaccine: Pediatrics (0 to 5 Years) and At-Risk Patients (6 to 49 Years) (1 of 2 - PCV) 2009 Social Influencers of Health Screening 02/02/2022 Depression Screening 03/02/2024 COVID-19 Vaccine ( season) 2024 07/12/2021, 01/18/2021, 12/28/2020 Cervical Cancer Screening: HPV 05/01/2027 04/30/2022 Cholesterol [...] C Screening Completed 04/15/2022 Influenza Vaccine Completed 12/08/2024, , 12/11/2020, Additional [...] Priority Date/Time Associated Diagnosis Comments ECG ANNOTATED 12/14/2024 CT ANGIO CHEST WO AND/OR W CONTRAST STAT 12/13/2024 2:30 PM EDT Chest pain, unspecified type CULTURE THROAT STAT 12/13/2024 12:20 PM EDT RAPID STREP A SCREEN STAT 12/13/2024 12:20 PM EDT XR CHEST 2 VIEWS STAT 12/13/2024 11:5 1 AM EDT CBC WITH AUTO DIFFERENTIAL STAT 12/13/2024 11:13 AM EDT D-DIMER STAT 12/13/2024 11:13 AM EDT ACTIVATED PARTIAL THROMBOPLASTIN TIME STAT 12/13/2024 11:13 AM EDT PROTHROMBIN TIME WITH INR STAT 12/13/2024 11:13 AM EDT B-TYPE NATRIURETIC PEPTIDE STAT 12/13/2024 11:13 AM EDT HCG, SERUM, QUALITATIVE STAT 12/13/2024 11:13 AM EDT TROPONIN I HIGH SENSITIVITY STAT 12/13/2024 11:13 AM EDT CBC AND DIFFERENTIAL STAT 12/13/2024 11:13 AM EDT BASIC METABOLIC PANEL STAT 12/13/2024 11:13 AM EDT POCT GLUCOSE BLOOD Routine 12/13/2024 10 :09 AM EDT ECG 12-LEAD STAT 12/13/2024 10:03 AM EDT US DUPLEX ABDOMEN/PELVIS/RETRO COMPLETE Routine 11/21/2024 7:24 [...] AND DIFFERENTIAL STAT 11/13/2024 10:27 PM EDT HM HPV Routine 04/30/2022 HEPATITIS C SCREENING Routine 04/15/2022 HIV SCREENING Routine 04/15/2022 from Last 3 Months or Most Recently Relevant to Health Maintenance Results * ECG-Annotated (12/14/2024) us Provider Onbase MD ECG ORDERABLES Final Result * CT Angio Chest wo and/or w Contrast (12/13/2024 2:30 PM EDT) Anatomical Region Laterality Modality Body Computed Tomogra phy 12/13/2024 2:56 PM EDT Impressions 12/13/2024 3:02 PM EDT No pulmonary embolism. No acute cardiopulmonary findings. -------- FINAL REPORT -------- Dictated By: Mike Denis Dictated Date: 12/13/2024 14:56 ET Assigned Physician: Mike Denis Reviewed and Electronically Signed By: Mike Denis Signed Date: 12/13/2024 15:02 ET Workstation ID: [id number] Transcribed By: Self Edit Transcribed Date: 12/13/2024 14:56 ET Narrative 12/13/2024 3:02 PM EDT PROCEDURE: CT pulmonary angiogram. HISTORY: CP, palp, + dimer, concern PE. TECHNIQUE: CT of the chest with intravenous contrast administration with pulmonary angiogram protocol. Coronal and sagittal reformats and MIP reconstructions were created. Dose length product: 403 mGy-cm. Contrast dose: 90 mL ISOVUE-370. COMPARISON: FINDINGS: LUNGS/PLEURA: The central airways are normal in caliber. Mild bronchial wall thickening at the bases. No pleural effusion or pneumothorax. MEDIASTINUM/TAYO: Heterogeneous appearance of the thyroid gland with possible small bilateral nodules. The thyroid could be better evaluated with ultrasound. No mediastinal or hilar mass or lymphadenopathy. VASCULATURE: Normal caliber pulmonary arteries. No pulmonary embolism. Normal appearance of the great vessels. CARDIAC: Normal heart size. No coronary artery calcification. CHEST WALL: No axillary or supraclavicular lymphadenopathy. LIMITED ABDOMEN: Partially visible postsurgical changes of the stomach. BONES: Soft tissue calcifications posterior to the left humeral head suggestive of calcific tendinitis of the rotator cuff. Mild degenerative changes of the thoracic spine. Procedure Note Mike Denis MD - 12/13/2024 PROCEDURE: CT pulmonary angiogram. HISTORY: CP, palp, + dimer, concern PE. TECHNIQUE: CT of the chest with intravenous contrast administration withpulmonary angiogram protocol. Coronal and sagittal reformats and MIPreconstructions were created. Dose length product: 403 mGy-cm. Contrast dose: 90 mL ISOVUE-370. COMPARISON: FINDINGS: LUNGS/PLEURA: The central airways are normal in caliber. Mild bronchialwall thickening at the bases. No pleural effusion or pneumothorax. MEDIASTINUM/TAYO: Heterogeneous appearance of the thyroid gland withpossible small bilateral nodules. The thyroid could be better evaluatedwith ultrasound. No mediastinal or hilar mass or lymphadenopathy. VASCULATURE: Normal caliber pulmonary arteries. No pulmonary embolism.Normal appearance of the great vessels. CARDIAC: Normal heart size. No coronary artery calcification. CHEST WALL: No axillary or supraclavicular lymphadenopathy. LIMITED ABDOMEN: Partially visible postsurgical changes of the stomach. BONES: Soft tissue calcifications posterior to the left humeral headsuggestive of calcific tendinitis of the rotator cuff. Mild degenerativechanges of the thoracic spine. IMPRESSION: No pulmonary embolism. No acute cardiopulmonary findings. -------- FINAL REPORT -------- Dictated By: Mike Denis Dictated Date: 12/13/2024 14:56 ET Assigned Physician: Mike Denis Reviewed and Electronically Signed By: Mike Denis Signed Date: 12/13/2024 15:02 ET Workstation ID: [id number] Transcribed By: Self Edit Transcribed Date: 12/13/2024 14:56 ET us Freeman Fields MD IMG CT PROCEDURES Final Result * Rapid strep A screen (12/13/2024 12:20 PM EDT) Strep A Ag Negative Negative, Invalid 12/13/2024 12:51 PM EDT [facility] Comment:Refer to Throat Cult ure. Swab Structure of anterior region of neck / Unknown Non-blood Collection / Unknown 12/13/2024 12:20 PM EDT 12/13/2024 12:37 PM EDT us Freeman Fields MD LAB MICROBIOLOGY - GENERAL ORDER ROSALIE Final Result [facility] [address] [place] [address], [place] [phone] * Culture throat (12/13/2024 12:20 PM EDT) Culture, Throat No pathogens isolated. 12/15/2024 10:34 AM EDT [facility] Swab Structure of anterior region of neck / Unknown Non-blood Collection / Unknown 12/13/2024 12:20 PM EDT 12/13/2024 12:37 PM EDT Freeman Fields MD LAB MICROBIOLOGY - GENERAL ORDER ROSALEI Final Result [facility] [address] [place] [address], * XR Chest 2 Views (12/13/2024 11:51 AM EDT) Anatomical Region Laterality Modality Body Radiographic Kamini ging 12/13/2024 12:4 6 PM EDT Impressions 12/13/2024 12:46 PM EDT Normal chest radiographs. -------- FINAL REPORT -------- Dictated By: Mike Denis Dictated Date: 12/13/2024 12:46 ET Assigned Physician: Mike Denis Reviewed and Electronically Signed By: Mike Denis Signed Date: 12/13/2024 12:46 ET Workstation ID: [id number] Transcribed By: Self Edit Transcribed Date: 12/13/2024 12:46 ET Narrative 12/13/2024 12:46 PM EDT PROCEDURE: PA and lateral radiographs of the chest. HISTORY: chest pain. COMPARISON: 12/05/2020. FINDINGS: The heart, mediastinum, lungs, pleural spaces, and bony thorax are normal. Procedure Note Mike Denis MD - 12/13/2024 PROCEDURE: PA and lateral radiographs of the chest. HISTORY: chest pain. COMPARISON: 12/05/2020. FINDINGS: The heart, mediastinum, lungs, pleural spaces, and bony thorax arenormal. IMPRESSION: Normal chest radiographs. -------- FINAL REPORT -------- Dictated By: Mike Denis Dictated Date: 12/13/2024 12:46 ET Assigned Physician: Mike Denis Reviewed and Electronically Signed By: Mike Denis Signed Date: 12/13/2024 12:46 ET Workstation ID: [id number] Transcribed By: Self Edit Transcribed Date: 12/13/2024 12:46 ET us Freeman Fields MD IMG XR PROCEDURES Final Result * Troponin I high sensitivity (12/13/2024 11:13 AM EDT) [facility] High Sensitivity Troponin I 5 <=54 ng/L LAB CHEMISTRY METHOD 12/13/2024 1:04 PM EDT [facility] Blood Venous blood specimen / Unknown Venipuncture / Unknown 12/13/2024 11:13 AM EDT 12/13/2024 11:45 AM EDT Narrative [facility] - 12/13/2024 1:04 PM EDT High levels of biotin in samples may falsely decrease hsTroponin values. Use caution when interpreting hsTroponin results in patients taking biotin who exhibit renal impairment (eGFR <60) or in patients taking more than 20 mg/day of biotin. us Freeman Fields MD LAB BLOOD ORDERABLES Final Resul t [facility] [address] [place] [address], * (ABNORMAL) CBC auto differential (12/13/2024 11:13 AM EDT) Only the most recent of2 resultswithin the time period is included. [facility] WBC 5.6 4.8 - 10.8 K/[facility] LAB HEMETOLOGY METHOD 12/13/2024 11:59 AM EDT [facility] RBC 4.10 3.80 - 4.80 M/[facility] LAB HEMETOLOGY METHOD 12/13/2024 11:59 AM [facility] Hemoglobin 10.3(L) 11.5 - 16.0 g/dL LAB HEMETOLOGY METHOD 12/13/2024 11:59 AM [facility] Hematocrit 33.5(L) 35.0 - 47.0 % LAB HEMETOLOGY METHOD 12/13/2024 11:59 AM [facility] MCV 82.7 79.0 - 98.0 FL LAB HEMETOLOGY METHOD 12/13/2024 11:59 AM [facility] MCH 25.4(L) 27.0 - 32.0 pcg LAB HEMETOLOGY METHOD 12/13/2024 11:59 AM [facility] MCHC 30.7(L) 32.0 - 37.0 g/dL LAB HEMETOLOGY METHOD 12/13/2024 11:59 AM [facility] RDW 20.9(H) 11.0 - 15.0 % LAB HEMETOLOGY METHOD 12/13/2024 11:59 AM [facility] Platelets 347 130 - 400 K/mcL LAB HEMETOLOGY METHOD 12/13/2024 11:59 AM [facility] MPV 11.0 7.0 - 11.0 FL LAB HEMETOLOGY METHOD 12/13/2024 11:59 AM [facility] NRBC 0.0 <1.0 % LAB HEMETOLOGY METHOD 12/13/2024 11:59 AM [facility] NRBC Absolute 0.00 <0.10 K/mcL LAB HEMETOLOGY METHOD 12/13/2024 11:59 AM [facility] Neutrophils Relative 48.0 % LAB HEMETOLOGY METHOD 12/13/2024 11:59 AM [facility] Lymphocytes Relative 35.8 % LAB HEMETOLOGY METHOD 12/13/2024 11:59 AM EDT [facility] Monocytes Relative 8.0 % LAB HEMETOLOGY METHOD 12/13/2024 11:59 AM EDT [facility] Eosinophils Relative 6.9 % LAB HEMETOLOGY METHOD 12/13/2024 11:59 AM EDT [facility] Basophils Relative 1.1 % LAB HEMETOLOGY METHOD 12/13/2024 11:59 AM EDT [facility] Immature Granulocytes Relative 0.2 % LAB HEMETOLOGY METHOD 12/13/2024 11:59 AM EDT [facility] Neutrophils Absolute 2.70 1.50 - 7.00 K/mcL LAB HEMETOLOGY METHOD 12/13/2024 11:59 AM EDT [facility] Lymphocytes Absolute 2.01 1.00 - 5.00 K/mcL LAB HEMETOLOGY METHOD 12/13/2024 11:59 AM EDT [facility] Monocytes Absolute 0.45 0.20 - 1.00 K/mcL LAB HEMETOLOGY METHOD 12/13/2024 11:59 AM EDT [facility] Eosinophils Absolute 0.39 0.00 - 0.50 K/mcL LAB HEMETOLOGY METHOD [facility]24 [facility] Basophils Absolute 0.06 0.00 - 0.20 K/mcL LAB HEMETOLOGY METHOD 12/13/2024 11:59 AM EDT [facility] Immature Granulocytes Absolute 0.01 0.00 - 0.03 K/mcL LAB HEMETOLOGY METHOD 12/13/2024 11:59 AM EDT [facility] Blood Venous blood specimen / Unknown Venipuncture / Unknown 12/13/2024 11:13 AM EDT 12/13/2024 11:45 AM EDT us Freeman Fields MD LAB BLOOD ORDERABLES Final Resul t [facility] [address] [place] [address], [place] [phone] * APTT (12/13/2024 11:13 AM EDT) [facility] aPTT 30.9 24.1 - 39.3 sec LAB COAGULATION METHOD 12/13/2024 12:02 PM EDT [facility] Blood Venous blood specimen / Unknown Venipuncture / Unknown 12/13/2024 11:13 AM EDT 12/13/2024 11:45 AM EDT us Freeman Fields MD LAB BLOOD ORDERABLES Final Resul t Performing Organization Address [facility]/ZIP Co de Phone Number [facility] [address] [place] [address], [place] [phone] * Protime-INR (12/13/2024 11:13 AM EDT) [facility] Protime 12.2 10.6 - 13.9 sec LAB COAGULATION METHOD 12/13/2024 12:02 PM EDT [facility] INR 1.0 LAB COAGULATION METHOD 12/13/2024 12:02 PM EDT [facility] Blood Venous blood specimen / Unknown Venipuncture / Unknown 12/13/2024 11:13 AM EDT 12/13/2024 11:45 AM EDT us Freeman Fields MD LAB BLOOD ORDERABLES Final Resul t Performing Organization Address [facility]/ZIP Co de Phone Number [facility] [address] [place] [address], * (ABNORMAL) D-Dimer (Quantitative) (12/13/2024 11:13 AM EDT) [facility] D-Dimer, Quant (D-DU) 469(H) <=230 ng/mL DDU LAB COAGULATION METHOD 12/13/2024 12:02 PM EDT [facility] Blood Venous blood specimen / Unknown Venipuncture / Unknown 12/13/2024 11:13 AM EDT 12/13/2024 11:45 AM EDT Narrative [facility] - 12/13/2024 12:02 PM EDT D-Dimer <230 ng/mL (D-Dimer units) is the threshold for exclusion of DVT/PE. D-Dimer may be elevated in: Critically ill, severely infected, trauma patients, DIC, acute CVA, acute [place], unstable angina, AF, old age, , and smoking. D-Dimer may be decreased with: Initiation of heparin therapy and oral anticoagulants. us Freeman Fields MD LAB BLOOD ORDERABLES Final Resul t Performing Organization Address City/[facility] Co de Phone Number [facility] [address] [place] [address], [place] [phone] * hCG Qualitative (12/13/2024 11:13 AM EDT) hCG Qual Negative Negative 12/13/2024 12:15 PM EDT [facility] Blood Venous blood specimen / Unknown Venipuncture / Unknown 12/13/2024 11:13 AM EDT 12/13/2024 11:45 AM EDT us Freeman Fields MD LAB BLOOD ORDERABLES Final Resul t [facility] [address] [place] [address], [place] [phone] * B-Type Natriuretic Peptide (BNP) (12/13/2024 11:13 AM EDT) BNP 99 <=100 pcg/mL LAB CHEMISTRY METHOD 12/13/2024 12:37 PM EDT [facility] Blood Venous blood specimen / Unknown Venipuncture / Unknown 12/13/2024 11:13 AM EDT 12/13/2024 11:45 AM EDT us Freeman Fields MD LAB BLOOD ORDERABLES Final Resul t [facility] [address] [place] [address], [place] [phone] * (ABNORMAL) Basic metabolic panel (12/13/2024 11:13 AM EDT) Only the most recent of2 resultswithin the time period is included. Sodium 141 133 - 145 mmol/L LAB CHEMISTRY METHOD 12/13/2024 12:13 PM [facility] Potassium 3.8 3.5 - 5.5 mmol/L LAB CHEMISTRY METHOD 12/13/2024 12:13 PM [facility] Chloride 112(H) 96 - 110 mmol/L LAB CHEMISTRY METHOD 12/13/2024 12:13 PM [facility] CO2 26 21 - 32 mmol/L LAB CHEMISTRY METHOD 12/13/2024 12:13 PM [facility] Anion Gap 3 3 - 11 LAB CHEMISTRY METHOD 12/13/2024 12:13 PM [facility] Glucose 73 70 - 100 mg/dL LAB CHEMISTRY METHOD 12/13/2024 12:13 PM [facility] BUN 9 5 - 25 mg/dL LAB CHEMISTRY METHOD 12/13/2024 12:13 PM [facility] Creatinine 0.90 0.50 - 1.10 mg/dL LAB CHEMISTRY METHOD 12/13/2024 12:13 PM [facility] eGFR 86 >=60 mL/min/1. 73m2 LAB CHEMISTRY METHOD 12/13/2024 12:13 PM [facility] Comment:Calculation based on the Chronic Kidney Disease Epidemiology Collaboration (CKD-EPI) equation refit without adjustment for race. BUN/Creatinine Ratio 10.0 LAB CHEMISTRY METHOD 12/13/2024 12:13 PM EDT [facility] Calcium 9.0 8.5 - 10.5 mg/dL LAB CHEMISTRY METHOD 12/13/2024 12:13 PM EDT [facility] Blood Venous blood specimen / Unknown Venipuncture / Unknown 12/13/2024 11:13 AM EDT 12/13/2024 11:45 AM EDT us Freeman Fields MD LAB BLOOD ORDERABLES Final Resul t Performing Organization Address [facility]/ZIP Co de Phone Number [facility] [address] [place] [address], [place] [phone] * (ABNORMAL) POCT Glucose, blood (12/13/2024 10:09 AM EDT) Glucose POCT 105(H) 70 - 100 mg/dL 12/13/2024 10:10 AM EDT [facility] Blood Capillary blood specimen / Unknown 12/13/2024 10:09 AM EDT 12/13/2024 10:12 AM EDT us Freeman Fields MD LAB POINT OF CARE TE ST DOCKED DEVICE UNSOLICITED RESULTS Final Result Performing Organization Address [facility] Co de Phone Number [facility] [address] [place] [address], [place] [phone] * 12-Lead ECG (12/13/2024 10:03 AM EDT) Ventricular Rate ECG 73 BPM GEMUSE Atrial Rate 73 BPM GEMUSE P-R Interval 130 ms GEMUSE QRS Duration 82 ms GEMUSE Q-T Interval 350 ms GEMUSE QTc 385 ms GEMUSE P Wave [place] 74 degrees GEMUSE R [place] 56 degrees GEMUSE T [place] 49 degrees GEMUSE ECG Interpretation Normal sinus rhythm Possible Left atrial enlargement Borderline ECG When compared with ECG of 23-OCT-2024 15:37, No significant change was found Confirmed by MD Messi, [place] ([id number]) on 12/14/2024 8:44:53 AM GEMUSE 12/13/2024 10:0 3 AM EDT 12/14/2024 8:44 AM EDT us Freeman Fields MD ECG ORDERABLES Final Result GEMUSE * US Pelvis Non OB Complete w [...] Signed Date: 11/21/2024 20:23 ET Workstation ID: [id number] Transcribed By: Self Edit Transcribed Date: 11/21/2024 [...] analysis. Cul-de-sac: No free fluid. Procedure Note Samantha, Bere, MD - 11/21/2024 PELVIC ULTRASOUND HISTORY: Abnormal [...] Signed Date: 11/21/2024 20:23 ET Workstation ID: [id number] Transcribed By: Self Edit Transcribed Date: 11/21/2024 20:19 ET us Maribel CHEEMA IMMonica US PROCEDURES Final Resu lt * US [...] Signed Date: 11/21/2024 20:23 ET Workstation ID: [id number] Transcribed By: Self Edit Transcribed Date: 11/21/2024 [...] Signed Date: 11/21/2024 20:23 ET Workstation ID: [id number] Transcribed By: Self Edit Transcribed Date: 11/21/2024 20:19 ET Maribel CHEEMA IMG US PROCEDURES Final Resu lt * POC , urine manually resulted (11/13/2024 10:28 PM EDT) [facility] HCG, Ur POC Negative Negative POC hCG Int QC Pass? Yes Yes Urine Urine specimen obtained by clean catch procedure / Unknown 11/13/2024 10:[address] [facility] Tyrel Segundo MD POINT OF CARE TEST ENTER/EDIT ORDERABLES Final Result * Cervical Cancer Screening: HPV (04/30/2022) [facility] Cervical Cancer Screening: HPV Negative, Abstracted Result [facility] Historical Provider HEALTH MAINTENANCE Final Result * HIV Screening (04/15/2022) [facility] HIV Screening Abstracted Result [facility] Historical Provider HEALTH MAINTENANCE Final Result * Hepatitis C Screening (04/15/2022) [facility] Hepatitis C Screening Abstracted Result [facility] Historical Provider HEALTH MAINTENANCE Final Result from Last 3 Months or Most Recently Relevant to Health Maintenance Insurance [facility] [address] [place] [address] Care Teams Enamel Pulverizer Relationship Specialty Start Date End Date Norma Gutierrez MD [address] [place] [address] PCP - General 10/07/22
== END 2025-01-27 18:49 | disposition home or self-care (01) ==
LOC: HO.MRI 18:48
PROVIDERS: PCP Internal Medicine; Visit Provider Physician Assistant
DX: M75.81 Other shoulder lesions, right shoulder (principal)
CPT/HCPCS: 73221